=== PATIENT | female | born 1965 | race Caucasian/White ===

== ENCOUNTER 2021-03-31 09:23 | Inpatient (IN) | payer BC, OTHER ==
[2021-03-31] MEDS ORDERED: Sodium Chloride 0.9% 10 ML Syringe FLUSH PRN ×2 (09:35→10:43)
[2021-03-31] MEDS ORDERED: Albuterol 0.083% 2.5 MG/3 ML Neb Soln NEB ONE (09:50)
--- NOTE | 2021-03-31 09:57 | EDM.PDOC ---
ED HPI GENERAL MEDICAL PROBLEM - General Chief Complaint: Respiratory Problem Stated Complaint: [facility] Time Seen by Provider: 03/31/21 09:27 Source of Information: Reports: Patient, EMS History Limitations: Reports: No Limitations - History of Present Illness INITIAL COMMENTS - FREE TEXT/NARRATIVE: 56-year-old female presents the emergency department today via [facility]. According to report, the patient states she began having fatigue and shortness of breath 6 days ago. She does admit to smoking 1/2 pack to 1 pack of cigarettes daily for the past 30 years. She admits to drinking a sixpack of beer at a time however does not admit to doing this daily. 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 He states that at one point last evening the patient's O2 sats were 50% on room air at home. He did go and obtain portable oxygen from the local ambulance service and placed it on the patient via nonrebreather at 15 L. Patient was then transported here to the emergency department. Patient states she has not had her Covid or influenza vaccine. She has not seen a doctor in well over 7 years. She does not take any prescription medications however she states she has been taking Zithromax that she obtained from [employer]. 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 ED EXAM, GENERAL - Physical Exam Exam: See Below Exam Limited By: No Limitations General Appearance: Alert, WD/WN, Severe Distress Ears: Normal External Exam, Hearing Grossly Normal Nose: Normal Inspection Throat/Mouth: Normal Inspection, Normal Lips, Normal Voice, No Airway Compromise, Other (Mucous membranes are dry) Head: Atraumatic Neck: Normal Inspection, Supple Respiratory/Chest: Respiratory Distress, Decreased Breath Sounds, Crackles (Scattered crackles noted to all torres), Wheezing (Expiratory wheezes noted to all torres) Cardiovascular: Normal Peripheral Pulses, No Edema, No Murmur, Tachycardia Peripheral Pulses: 2+: Radial (L), Radial (R) GI/Abdominal: Normal Bowel Sounds, Soft, Non-Tender, No Distention (Female) Exam: Deferred Rectal (Female) Exam: Deferred Back Exam: Normal Inspection Extremities: Normal Inspection Neurological: Alert, Oriented, Normal Cognition Psychiatric: Normal Affect, Normal Mood Skin Exam: Warm, Dry, Intact, Normal Color, No Rash Lymphatic: No Adenopathy #1 Interpretation EKG Date: 03/31/21 Time: 09:37 Rhythm: NSR Rate (Beats/Min): 104 [place]: Normal P-Wave: Present QRS: Normal ST-T: Normal QT: Normal Comparison: NA - No Prior EKG EKG Interpretation Comments: Per Dr. Medel interpretation: Sinus tachycardia at 104 bpm; biatrial enlargement; borderline right axis deviation; low voltage, precordial leads; borderline T abnormalities, anterior leads Course - Vital Signs Text/Narrative:: Stated above, patient presents with flulike symptoms, hypoxemia and tachypnea. Symptoms started approximately 6 days ago and have progressively worsened. Upon exam, the patient is tachypneic and dyspneic on nonrebreather mask at 12 L. O2 saturations are 100% at this time. Patient is ill in appearance. Lung sounds reveal expiratory wheezes with crackles noted to all torres. Heart rate is regular and tachycardic. Abdomen is soft and nontender. Nursing staff has placed standing orders to obtain lab studies, chest x-ray, EKG, Covid and influenza testing. I have decreased the patient's oxygen to 10 L at this time due to her saturations being at 100%. Suspect likely does have underlying COPD due to her significant smoking history. We will have respiratory therapy give the patient an albuterol nebulizer. Last Recorded V/S: Last Vital Signs Temp 96.4 F L 03/31/21 13:52 Pulse 84 03/31/21 13:52 Resp 28 H 03/31/21 13:52 BP 117/103 H 03/31/21 13:52 Pulse Ox 97 03/31/21 13:52 - Orders/Labs/Meds Orders: Active Orders 24 hr Category Date Time Status Admission Status [Patient Status] [ADT] Routine ADT 03/31/21 12:45 Active Jamil Catheter Insertion [Insert Urinary Catheter] [OM. Care 03/31/21 12:00 Ordered PC] Q24H BLOOD CULTURE [MREF] Stat Lab 03/31/21 11:07 Received BLOOD CULTURE [MREF] Stat Lab 03/31/21 11:13 Received Sodium Chloride 0.9% [Normal Saline] 100 ml Med 03/31/21 10:45 Active IV ASDIRECTED Sodium Chloride 0.9% [Saline Flush] Med 03/31/21 09:35 Active 10 ml FLUSH ASDIRECTED PRN Sodium Chloride 0.9% [Saline Flush] Med 03/31/21 10:43 Active 10 ml FLUSH ONETIME PRN Blood Culture x2 Reflex Set [OM.PC] Stat Oth 03/31/21 10:42 Ordered Isolation [COMM] Routine Oth 03/31/21 09:35 Ordered Saline Lock Insert [OM.PC] Stat Oth 03/31/21 09:35 Ordered Medication Orders Sodium Chloride (Normal Saline) 100 mls @ 75 mls/hr IV ASDIRECTED ROSY Last Admin: 03/31/21 10:56 Dose: 75 mls/hr Documented by: ALEXA Ceftriaxone Sodium 1 gm/ (Sodium Chloride) 100 mls @ 200 mls/hr IV ONETIME ONE Stop: 03/31/21 14:44 Ceftriaxone Sodium 2 gm/ (Sodium Chloride) 100 mls @ 200 mls/hr IV Q24H ROSY Doxycycline Hyclate 100 mg/ (Sodium Chloride) 100 mls @ 100 mls/hr IV Q12HR ROSY Methylprednisolone Sodium Succinate (Methylprednisolone Sodium Succinate 125 Mg/2 Ml Sdv) 125 mg IVPUSH ONETIME ONE Stop: 03/31/21 14:14 Sodium Chloride (Sodium Chloride 0.9% 10 Ml Syringe) 10 ml FLUSH ASDIRECTED PRN PRN Reason: Keep Vein Open Last Admin: 03/31/21 10:28 Dose: 10 ml Documented by: BORDMIN Sodium Chloride (Sodium Chloride 0.9% 10 Ml Syringe) 10 ml FLUSH ONETIME PRN PRN Reason: IV FLUSH Last Admin: 03/31/21 10:56 Dose: 10 ml Documented by: ALEXA Labs: Laboratory Tests 03/31/21 03/31/21 03/31/21 Range/Units 09:30 09:30 09:30 WBC 24.72 H (3.98-10.04) K/mm3 RBC 4.80 (3.98-5.22) M/mm3 Hgb 14.4 (11.2-15.7) gm/dl Hct 44.1 (34.1-44.9) % MCV 91.9 (79.4-94.8) fl MCH 30.0 (25.6-32.2) pg MCHC 32.7 (32.2-35.5) g/dl RDW Std Deviation 44.5 (36.4-46.3) fL Plt Count 318 (182-369) K/mm3 MPV 11.2 (9.4-12.3) fl Neut % (Auto) 79.2 H (34.0-71.1) % Lymph % (Auto) 9.1 L (19.3-51.7) % Vigo % (Auto) 7.7 (4.7-12.5) % Eos % (Auto) 0 L (0.7-5.8) Baso % (Auto) 0.9 (0.1-1.2) % Neut # (Auto) 19.59 H (1.56-6.13) K/mm3 Lymph # (Auto) 2.24 (1.18-3.74) K/mm3 [place]igo # (Auto) 1.90 H (0.24-0.36) K/mm3 Eos # (Auto) 0.01 L (0.04-0.36) K/mm3 Baso # (Auto) 0.22 H (0.01-0.08) K/mm3 Manual Slide Review Abnormal smear D-Dimer, Quantitative 1.93 H (0.19-0.50) mg/L Puncture Site ABG pH (7.35-7.45) ABG pCO2 (35.0-45.0) mmHg ABG pO2 (80.0-100.0) mmHg ABG HCO3 (22.0-26.0) meq/L ABG O2 Saturation (96.0-97.0) % ABG Base Excess (-2-2.0) Jairo Test O2 Delivery Device Oxygen Flow Rate Sodium 128 L (136-145) mEq/L Potassium 4.1 (3.5-5.1) mEq/L Chloride 89 L (98-107) mEq/L Carbon Dioxide 33 H (21-32) mEq/L Anion Gap 10.1 (5-15) BUN 34 H (7-18) mg/dL Creatinine 1.2 H (0.55-1.02) mg/dL Est Cr Clr Drug Dosing 54.05 mL/min Estimated GFR (MDRD) 46 (>60) mL/min BUN/Creatinine Ratio 28.3 H (14-18) Glucose 143 H (70-99) mg/dL Lactic Acid (0.4-2.0) mmol/L Calcium 9.4 (8.5-10.1) mg/dL Ferritin (8-252) ng/ml Total Bilirubin 0.7 (0.2-1.0) mg/dL AST 970 H (15-37) U/L ALT 488 H (14-59) U/L Alkaline Phosphatase 135 H (46-116) U/L Lactate Dehydrogenase 979 H (81-234) U/L Troponin I 0.829 H* (0.00-0.056) ng/mL C-Reactive Protein 34.7 H* (<1.0) mg/dL NT-Pro-B Natriuret Pep (0-125) pg/mL Total Protein 7.9 (6.4-8.2) g/dl Albumin 2.8 L (3.4-5.0) g/dl Globulin 5.1 gm/dL Albumin/Globulin Ratio 0.6 L (1-2) Influenza Type A RNA (NEGATIVE) Influenza Type B RNA (NEGATIVE) SARS-CoV-2 RNA (ASHLEY) (NEGATIVE) 03/31/21 03/31/21 03/31/21 Range/Units 09:30 09:30 09:30 WBC (3.98-10.04) K/mm3 RBC (3.98-5.22) M/mm3 Hgb (11.2-15.7) gm/dl Hct (34.1-44.9) % MCV (79.4-94.8) fl MCH (25.6-32.2) pg MCHC (32.2-35.5) g/dl RDW Std Deviation (36.4-46.3) fL Plt Count (182-369) K/mm3 MPV (9.4-12.3) fl Neut % (Auto) (34.0-71.1) % Lymph % (Auto) (19.3-51.7) % Vigo % (Auto) (4.7-12.5) % Eos % (Auto) (0.7-5.8) Baso % (Auto) (0.1-1.2) % Neut # (Auto) (1.56-6.13) K/mm3 Lymph # (Auto) (1.18-3.74) K/mm3 [place]igo # (Auto) (0.24-0.36) K/mm3 Eos # (Auto) (0.04-0.36) K/mm3 Baso # (Auto) (0.01-0.08) K/mm3 Manual Slide Review D-Dimer, Quantitative (0.19-0.50) mg/L Puncture Site ABG pH (7.35-7.45) ABG pCO2 (35.0-45.0) mmHg ABG pO2 (80.0-100.0) mmHg ABG HCO3 (22.0-26.0) meq/L ABG O2 Saturation (96.0-97.0) % ABG Base Excess (-2-2.0) Jairo Test O2 Delivery Device Oxygen Flow Rate Sodium (136-145) mEq/L Potassium (3.5-5.1) mEq/L Chloride (98-107) mEq/L Carbon Dioxide (21-32) mEq/L Anion Gap (5-15) BUN (7-18) mg/dL Creatinine (0.55-1.02) mg/dL Est Cr Clr Drug Dosing mL/min Estimated GFR (MDRD) (>60) mL/min BUN/Creatinine Ratio (14-18) Glucose (70-99) mg/dL Lactic Acid 1.5 (0.4-2.0) mmol/L Calcium (8.5-10.1) mg/dL Ferritin 3947 H (8-252) ng/ml Total Bilirubin (0.2-1.0) mg/dL AST (15-37) U/L ALT (14-59) U/L Alkaline Phosphatase (46-116) U/L Lactate Dehydrogenase (81-234) U/L Troponin I (0.00-0.056) ng/mL C-Reactive Protein (<1.0) mg/dL NT-Pro-B Natriuret Pep 34971 H (0-125) pg/mL Total Protein (6.4-8.2) g/dl Albumin (3.4-5.0) g/dl Globulin gm/dL Albumin/Globulin Ratio (1-2) Influenza Type A RNA (NEGATIVE) Influenza Type B RNA (NEGATIVE) SARS-CoV-2 RNA (ASHLEY) (NEGATIVE) 03/31/21 03/31/21 Range/Units 09:35 10:45 WBC (3.98-10.04) K/mm3 RBC (3.98-5.22) M/mm3 Hgb (11.2-15.7) gm/dl Hct (34.1-44.9) % MCV (79.4-94.8) fl MCH (25.6-32.2) pg MCHC (32.2-35.5) g/dl RDW Std Deviation (36.4-46.3) fL Plt Count (182-369) K/mm3 MPV (9.4-12.3) fl Neut % (Auto) (34.0-71.1) % Lymph % (Auto) (19.3-51.7) % [place] % (Auto) (4.7-12.5) % Eos % (Auto) (0.7-5.8) Baso % (Auto) (0.1-1.2) % Neut # (Auto) (1.56-6.13) K/mm3 Lymph # (Auto) (1.18-3.74) K/mm3 [place] # (Auto) (0.24-0.36) K/mm3 Eos # (Auto) (0.04-0.36) K/mm3 Baso # (Auto) (0.01-0.08) K/mm3 Manual Slide Review D-Dimer, Quantitative (0.19-0.50) mg/L Puncture Site Lt radial ABG pH 7.22 L (7.35-7.45) ABG pCO2 81.5 H* (35.0-45.0) mmHg ABG pO2 89.0 (80.0-100.0) mmHg ABG HCO3 32.4 H (22.0-26.0) meq/L ABG O2 Saturation 94.1 L (96.0-97.0) % ABG Base Excess 1.8 (-2-2.0) Jairo Test Positive O2 Delivery Device Nasal cannula Oxygen Flow Rate 6.0 Sodium (136-145) mEq/L Potassium (3.5-5.1) mEq/L Chloride (98-107) mEq/L Carbon Dioxide (21-32) mEq/L Anion Gap (5-15) BUN (7-18) mg/dL Creatinine (0.55-1.02) mg/dL Est Cr Clr Drug Dosing mL/min Estimated GFR (MDRD) (>60) mL/min BUN/Creatinine Ratio (14-18) Glucose (70-99) mg/dL Lactic Acid (0.4-2.0) mmol/L Calcium (8.5-10.1) mg/dL Ferritin (8-252) ng/ml Total Bilirubin (0.2-1.0) mg/dL AST (15-37) U/L ALT (14-59) U/L Alkaline Phosphatase (46-116) U/L Lactate Dehydrogenase (81-234) U/L Troponin I (0.00-0.056) ng/mL C-Reactive Protein (<1.0) mg/dL NT-Pro-B Natriuret Pep (0-125) pg/mL Total Protein (6.4-8.2) g/dl Albumin (3.4-5.0) g/dl Globulin gm/dL Albumin/Globulin Ratio (1-2) Influenza Type A RNA Negative (NEGATIVE) Influenza Type B RNA Negative (NEGATIVE) SARS-CoV-2 RNA (ASHLEY) Negative (NEGATIVE) Meds: Medications Generic Name Dose Route Start Last Admin Trade Name Freq PRN Reason Stop Dose Admin Sodium Chloride 100 mls @ 75 mls/hr 03/31/21 10:45 03/31/21 10:56 Normal Saline IV 75 mls/hr ASDIRECTED ROSY Administration Ceftriaxone Sodium 1 gm/ 100 mls @ 200 mls/hr 03/31/21 14:15 Sodium Chloride IV 03/31/21 14:44 ONETIME ONE Ceftriaxone Sodium 2 gm/ 100 mls @ 200 mls/hr 04/01/21 14:15 Sodium Chloride IV Q24H ROSY Doxycycline Hyclate 100 mg/ 100 mls @ 100 mls/hr 03/31/21 21:00 Sodium Chloride IV Q12HR ROSY Methylprednisolone Sodium Succinate 125 mg 03/31/21 14:13 Methylprednisolone Sodium Succinate 125 Mg/2 Ml Sdv IVPUSH 03/31/21 14:14 ONETIME ONE Sodium Chloride 10 ml 03/31/21 09:35 03/31/21 10:28 Sodium Chloride 0.9% 10 Ml Syringe FLUSH 10 ml ASDIRECTED PRN Administration Keep Vein Open Sodium Chloride 10 ml 03/31/21 10:43 03/31/21 10:56 Sodium Chloride 0.9% 10 Ml Syringe FLUSH 10 ml ONETIME PRN Administration IV FLUSH Discontinued Medications Generic Name Dose Route Start Last Admin Trade Name Freq PRN Reason Stop Dose Admin Albuterol 2.5 mg 03/31/21 09:50 03/31/21 10:00 Albuterol 0.083% 2.5 Mg/3 Ml Neb Soln NEB 03/31/21 09:51 2.5 mg ONETIME ONE Administration Aspirin 324 mg 03/31/21 10:19 03/31/21 10:27 Aspirin 81 Mg Tab.Chew PO 03/31/21 10:20 324 mg ONETIME ONE Administration Furosemide 40 mg 03/31/21 11:01 03/31/21 11:11 Furosemide 40 Mg/4 Ml Vial IVPUSH 03/31/21 11:02 40 mg NOW ONE Administration Furosemide 40 mg 03/31/21 12:40 03/31/21 12:48 Furosemide 40 Mg/4 Ml Vial IVPUSH 03/31/21 12:41 40 mg NOW ONE Administration Ceftriaxone Sodium 1 gm/ 100 mls @ 200 mls/hr 03/31/21 10:52 03/31/21 11:14 Sodium Chloride IV 03/31/21 11:21 200 mls/hr ONETIME ONE Administration Sodium Chloride Confirm 03/31/21 10:58 03/31/21 11:12 Normal Saline Administered 03/31/21 10:59 Not Given Dose 1,000 mls @ as directed .ROUTE .STK-MED ONE Iopamidol 100 ml 03/31/21 10:43 03/31/21 10:56 Iopamidol 755 Mg/Ml 100 Ml Bottle IVPUSH 03/31/21 10:44 100 ml ONETIME ONE Administration - Radiology Interpretation Free Text/Narrative:: Portable view of the chest was reviewed. Questionable areas of infiltrate noted to the right lower lobe as well as the right middle lobe. - Re-Assessments/Exams Free Text/Narrative Re-Assessment/Exam: 03/31/21 10:46 Hematology reveals a WBC of 24.72, hemoglobin 14.4, hematocrit 44.1, platelet count 318, neutrophil percentage 79.2, lymphocyte percentage 9.1 Coagulation reveals a D-dimer of 1.93 Chemistry reveals a sodium of 128, potassium 4.1, chloride 89, carbon dioxide 33, anion gap 10.1, BUN 34, creatinine 1.2, GFR 46, glucose 143, total bilirubin 0.7, AST 970, ALT 48, alk phos 135, LDH 979, troponin 0 0.829, C-reactive protein 34.7 Patient is negative for influenza A, B and Covid I have ordered a CTA of the lungs as well as blood cultures x2 and a lactic acid level 03/31/21 11:02 Patient's proBNP is 14,948. I have ordered for the patient to receive 40 mg of IV Lasix. 03/31/21 11:13 Patient's ABGs reveal a pH of 7.22, PCO2 of 81.5, PO2 89.0, bicarb 32.4, O2 saturation 94.1% on 6 L per nasal cannula I have ordered for the patient be placed on BiPAP. 03/31/21 11:48 I have ordered for nursing staff to place a Jamil catheter for strict I&O. 03/31/21 11:[address] angio chest diffuse airway wall thickening. In the peripheral third of the lung as there is centrilobular nodularity/tree-in-bud opacity in a few small foci of subsegmental opacity anterior-inferior right upper lobe lateral segment of right middle lobe and in the periphery of both upper lobes consistent with foci of mixed atelectasis/inflammation. No pleural effusion is present. Cardiac chambers are normal in size. Physiologic pericardial fluid. Normal caliber thoracic aorta with conventional arch anatomy. Imaged thyroid gland is normal. Hilar and mediastinal lymph nodes are normal by the size criteria. Esophagus is decompressed. No coronary artery calcification. No actionable findings in the imaged upper abdomen. Musculoskeletal is normal. Impression: 1. No acute pulmonary embolism. 2. Diffuse area thickening with central lobular nodularity/tree-in-bud opacity and a few small peripheral foci of airspace opacity. Overall the pattern is most consistent with a bronchitis/bronchiolitis and most likely infectious such as influenza. 03/31/21 12:15 I do feel this patient needs to be hospitalized. Due to the severity of your illness I have phoned [facility] in [place] and [facility] in [place]. Both hospitals state they do not have any critical care or ICU beds available at this time. 03/31/21 12:20 I then phoned [facility] in [place] and spoke with the circle shear operator on-call, Dr. Whelan, and he states that the patient's heart failure could possibly be due to the pneumonia. He suspects that the troponin elevation is likely caused by the heart failure and pneumonia. He recommends that she be given 40 mg of IV Lasix in addition to what I have already given her. States that the patient should have blood cultures completed and then be given broad- spectrum antibiotics which I have already done. Also states that the patient will likely need an echocardiogram. I spoke with our hospitalist, Dr. Owen, and discussed the case with him and the recommendations per the circle shear operator and he has agreed to accept the patient into his services. The patient will be transferred to ICU. I have ordered for the patient to receive another 40 mg of IV Lasix. Discussed the case with the patient's who is at the bedside and he does verbalize understanding. Radiologist impression portable view of the chest: Cardiomegaly. Normal mediastinal contours. Pulmonary vascular congestion. There is a faint peripheral opacities in both lower lungs that either represents a small amount of interstitial edema or multifocal pneumonitis if there is a presenting symptom of infection. There is no pleural effusion or pneumothorax. 03/31/21 14:18 Departure - Departure Time of Disposition: 13:20 Disposition: Admitted As Inpatient 65 Condition: Fair Clinical Impression: Elevated liver enzymes, Elevated troponin Congestive heart failure Qualifiers: Heart failure type: unspecified Heart failure chronicity: unspecified Qualified Code(s): I50.9 - Heart failure, unspecified Pneumonia Qualifiers: Pneumonia type: due to unspecified organism Laterality: bilateral Lung location: lower lobe of lung Qualified Code(s): J18.9 - Pneumonia, unspecified organism - Discharge Information Sepsis Event Note (ED) - Focused Exam Vital Signs: Vital Signs Temp Temp Pulse Resp BP Pulse Ox Pulse Ox 03/31/21 13:00 88 36 H 128/80 98 03/31/21 12:00 89 36 H 128/87 98 03/31/21 11:19 95 44 H 130/84 95 03/31/21 10:41 90 L 03/31/21 10:30 98.5 F 94 40 H 109/73 86 L 03/31/21 10:15 103 H 36 H 137/88 92 L 03/31/21 10:08 90 L 03/31/21 10:00 114 H 42 H 141/84 H 100 03/31/21 09:51 93 L 03/31/21 09:45 104 H 42 H 134/86 98 03/31/21 09:26 96.1 F L 28 H 126/87 98 - My Orders Last 24 Hours: My Active Orders 03/31/21 09:35 Sodium Chloride 0.9% [Saline Flush] 10 ml FLUSH ASDIRECTED PRN Isolation [COMM] Routine Saline Lock Insert [OM.PC] Stat 03/31/21 10:42 Blood Culture x2 Reflex Set [OM.PC] Stat 03/31/21 10:43 Sodium Chloride 0.9% [Saline Flush] 10 ml FLUSH ONETIME PRN 03/31/21 10:45 Sodium Chloride 0.9% [Normal Saline] 100 ml IV ASDIRECTED 03/31/21 11:07 BLOOD CULTURE [MREF] Stat 03/31/21 11:13 BLOOD CULTURE [MREF] Stat 03/31/21 12:00 Jamil Catheter Insertion [Insert Urinary Catheter] [OM.PC] Q24H 03/31/21 12:45 Admission Status [Patient Status] [ADT] Routine - Assessment/Plan Last 24 Hours: My Active Orders 03/31/21 09:35 Sodium Chloride 0.9% [Saline Flush] 10 ml FLUSH ASDIRECTED PRN Isolation [COMM] Routine Saline Lock Insert [OM.PC] Stat 03/31/21 10:42 Blood Culture x2 Reflex Set [OM.PC] Stat 03/31/21 10:43 Sodium Chloride 0.9% [Saline Flush] 10 ml FLUSH ONETIME PRN 03/31/21 10:45 Sodium Chloride 0.9% [Normal Saline] 100 ml IV ASDIRECTED 03/31/21 11:07 BLOOD CULTURE [MREF] Stat 03/31/21 11:13 BLOOD CULTURE [MREF] Stat 03/31/21 12:00 Jamil Catheter Insertion [Insert Urinary Catheter] [OM.PC] Q24H 03/31/21 12:45 Admission Status [Patient Status] [ADT] Routine
[2021-03-31] MEDS ORDERED: Aspirin 81 MG Tab.Chew PO ONE (10:19)
[2021-03-31 10:28] LABS: CORONAVIRUS COVID-19 NAA NEGATIVE (NEGATIVE)
[2021-03-31] MEDS ORDERED: Iopamidol 755 Mg/ML 100 ML Bottle IVPUSH ONE (10:43)
[2021-03-31] MEDS ORDERED: Sodium Chloride 0.9% 100 ML IV SCH (10:45)
[2021-03-31] MEDS ORDERED: cefTRIAXone 1 GM in Sodium Chloride 0.9% 100 ML IV ONE ×2 (10:52→14:30)
[2021-03-31] MEDS ORDERED: Sodium Chloride 0.9% 0 ML ONE (10:58)
[2021-03-31] MEDS ORDERED: Furosemide 40 MG/4 ML VIAL IVPUSH ONE ×2 (11:01→12:40)
--- NOTE | 2021-03-31 13:48 | CR ---
EXAM: XR CHEST 1 VIEW LOCATION: [facility] DATE/TIME: 03/31/2021 9:49 AM INDICATION: Severe respiratory distress COMPARISON: None. IMPRESSION: Cardiomegaly. Normal mediastinal contours. Pulmonary vascular congestion. There is faint peripheral opacities in both lower lungs that either represents a small amount of interstitial edema or a multifocal pneumonitis if there is presenting symptoms of an infection. There is no pleural effusion or pneumothorax. SIGNED BY: Andrés Sauceda MD 03/31/2021 11:23 AM [facility]US[facility]
--- NOTE | 2021-03-31 13:52 | CT ---
EXAM: CT ANGIO PULMONARY LOCATION: [facility] DATE/TIME: 03/31/2021 10:48 AM INDICATION: Hypoxia, elevated d dimer COMPARISON: Portable chest radiography 03/31/2021 TECHNIQUE: CT chest pulmonary angiogram during arterial phase injection of IV contrast. Multiplanar reformats and MIP reconstructions were performed. Dose reduction techniques were used. CONTRAST: isovue 370, 90 mL FINDINGS: ANGIOGRAM CHEST: Pulmonary arteries are normal caliber and negative for pulmonary emboli. Thoracic aorta is negative for dissection. LUNGS AND PLEURA: Diffuse airway wall thickening. In the peripheral third of the lung as there is centrilobular nodularity/tree-in-bud opacity and a few small foci of subsegmental opacity anterior inferior right upper lobe, lateral segment right middle lobe and in the periphery of both upper lobes consistent with foci of mixed atelectasis/inflammation. No pleural effusion is present. MEDIASTINUM: Cardiac chambers are normal in size. Physiologic pericardial fluid. Normal caliber thoracic aorta with conventional arch anatomy. Imaged thyroid gland is normal. Hilar and mediastinal lymph nodes are normal by size criteria. Esophagus is decompressed. CORONARY ARTERY CALCIFICATION: None. UPPER ABDOMEN: No actionable findings in the imaged upper abdomen. MUSCULOSKELETAL: Normal. IMPRESSION: 1. No acute pulmonary embolism. 2. Diffuse airway wall thickening with centrilobular nodularity/tree-in-bud opacity and a few small peripheral foci of airspace opacity. Overall the pattern is most consistent with a bronchitis/bronchiolitis and most likely infectious such as influenza. SIGNED BY: Nadir Finnegan MD 03/31/2021 12:33 PM [facility]
[2021-03-31] MEDS ORDERED: Acetaminophen 325 MG Tab PO PRN (14:19)
[2021-03-31] MEDS ORDERED: Albuterol 0.083% 2.5 MG/3 ML Neb Soln NEB PRN (14:19)
[2021-03-31] MEDS ORDERED: Ondansetron 4 MG/2 ML SDV IV PRN (14:19)
--- NOTE | 2021-03-31 14:23 | PCM.HP.2 ---
H&P History of Present Illness - General Date of Service: 03/31/21 Admit Problem/Dx: Admission Diagnosis/Problem Admission Diagnosis/Problem Pneumonia - History of Present Illness Initial Comments - Free Text/Narative: 56-year-old female who presented to the emergency department via [facility] with no known medical history in respiratory distress. 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 He obtained a portable oxygen from the local ambulance service and placed her on a 15 L nonrebreather. She was transferred to the emergency department this morning found to be tachypneic, on a nonrebreather at 12 L, and oxygen saturations of 100%. In the emergency department they decreased her FiO2 to 10 L. Blood gas obtained in pH was 7.22 with a PCO2 of 82. Patient was placed on BiPAP with pressures of 10/5. Speaking to the it appears she has been under the weather for approximately 8 days. She had a flulike illness with fevers and worsening cough and shortness of breath. She generally smokes a pack or more cigarettes per day since she was in her teens. She drinks 6 pack plus of beer 3-4 times per week. Last alcohol was 8 days ago. Patient generally does not take medications and has since been seen by a physician in over 7 years. He did state that she has had some difficulty breathing over the last several months and was taking an herbal supplement to help her breathing and allergies when she was gardening. She did respond well enough to me to tell me that she had some benefit recently when she tried the same herbal supplement. Apparently she was taking Zithromax this was obtained from [place]. She has not been diagnosed with heart failure, COPD, hypertension, diabetes, although it is likely she does have some degree of COPD and heart disease. Family history is significant for a mother with coronary artery disease with 1 stent and kidney disease of unknown cause. 1 brother with alcohol abuse disorder. She is estranged from her father, therefore unknown health. In the emergency department White count came back at 24.72 with a D-dimer of 1.93. CRP was 34.7 with a troponin of 0.829 and a proBNP of 14,948. Ferritin was elevated at 3947 and lactate dehydrogenase of 979. Fortunately, lactic acid was 1.5. She was given 40 mg of Lasix x2 in the emergency department. Emergency room provider did contact cardiology at [facility]. Unfortunately there are no beds in [facility] for ICU. Per ED provider they recommended that we continue with our current therapy of BiPAP, Lasix, and antibiotics. They felt that CHF is likely secondary to pneumonia. - Related Data Allergies/Adverse Reactions: Allergies Allergy/AdvReac Type Severity Reaction Status Date / Time No Known Allergies Allergy Verified 03/31/21 09:32 Home Medications: Home Meds Azithromycin 03/31/21 [History] Past Medical History Respiratory History: Reports: None Social & Family History - Tobacco Use Tobacco Use Status *Q: Current Every Day Tobacco User Years of Tobacco use: 5 Packs/Tins Daily: 1 - Caffeine Use Caffeine Use: Reports: None - Alcohol Use Days Per Week of Alcohol Use: 4 Number of Drinks Per Day: 3 Total Drinks Per Week: 12 Date of Last Drink: 03/27/21 Time of Last Drink: 20:00 - Recreational Drug Use Recreational Drug Use: No H&P Review of Systems - Review of Systems: Review Of Systems: Unable To Obtain Reason Not Obtained: Obtunded secondary to hypercapnia Exam - Exam Exam: See Below - Vital Signs Vital Signs: Last Vital Signs Temp 96.4 F L 03/31/21 13:52 Pulse 84 03/31/21 13:52 Resp 28 H 03/31/21 13:52 BP 117/103 H 03/31/21 13:52 Pulse Ox 97 03/31/21 13:52 Weight: 169 lb 4.8 oz - Exam Quality Assessment: Supplemental Oxygen (BiPAP), Urinary Catheter General: Obtunded HEENT: Conjunctiva Clear, Hearing Intact, Mucosa Moist & [place] Neck: Supple, Trachea Midline, 2 Lungs: Crackles (Scattered), Wheezing (Throughout). No: Normal Respiratory Effort (Increased respiratory rate and effort) Cardiovascular: Regular Rate, Regular Rhythm, Normal S1, Normal S2 GI/Abdominal Exam: Normal Bowel Sounds, Soft, Non-Tender, No Organomegaly, No Distention, No Abnormal Bruit, No Mass Extremities: Normal Inspection, Normal Range of Motion, Non-Tender, No Pedal Ed jayshree, Normal Capillary Refill Peripheral Pulses: 1+: Popliteal (R), Posterior Tibial (L), Posterior Tibial (R), Dorsalis Pedis (L) Skin: Warm, Dry, Intact Neuro Extensive - Mental Status: Slow Response to Commands - Patient Data Lab Results Last 24 hrs: Laboratory Results - last 24 hr 03/31/21 03/31/21 03/31/21 Range/Units 09:30 09:30 09:30 WBC 24.72 H (3.98-10.04) K/mm3 RBC 4.80 (3.98-5.22) M/mm3 Hgb 14.4 (11.2-15.7) gm/dl Hct 44.1 (34.1-44.9) % MCV 91.9 (79.4-94.8) fl MCH 30.0 (25.6-32.2) pg MCHC 32.7 (32.2-35.5) g/dl RDW Std Deviation 44.5 (36.4-46.3) fL Plt Count 318 (182-369) K/mm3 MPV 11.2 (9.4-12.3) fl Neut % (Auto) 79.2 H (34.0-71.1) % Lymph % (Auto) 9.1 L (19.3-51.7) % [place] % (Auto) 7.7 (4.7-12.5) % Eos % (Auto) 0 L (0.7-5.8) Baso % (Auto) 0.9 (0.1-1.2) % Neut # (Auto) 19.59 H (1.56-6.13) K/mm3 Lymph # (Auto) 2.24 (1.18-3.74) K/mm3 [place] # (Auto) 1.90 H (0.24-0.36) K/mm3 Eos # (Auto) 0.01 L (0.04-0.36) K/mm3 Baso # (Auto) 0.22 H (0.01-0.08) K/mm3 Manual Slide Review Abnormal smear D-Dimer, Quantitative 1.93 H (0.19-0.50) mg/L Puncture Site ABG pH (7.35-7.45) ABG pCO2 (35.0-45.0) mmHg ABG pO2 (80.0-100.0) mmHg ABG HCO3 (22.0-26.0) meq/L ABG O2 Saturation (96.0-97.0) % ABG Base Excess (-2-2.0) [place]airo Test O2 Delivery Device Oxygen Flow Rate Sodium 128 L (136-145) mEq/L Potassium 4.1 (3.5-5.1) mEq/L Chloride 89 L (98-107) mEq/L Carbon Dioxide 33 H (21-32) mEq/L Anion Gap 10.1 (5-15) BUN 34 H (7-18) mg/dL Creatinine 1.2 H (0.55-1.02) mg/dL Est Cr Clr Drug Dosing 54.05 mL/min Estimated GFR (MDRD) 46 (>60) mL/min BUN/Creatinine Ratio 28.3 H (14-18) Glucose 143 H (70-99) mg/dL Lactic Acid (0.4-2.0) mmol/L Calcium 9.4 (8.5-10.1) mg/dL Ferritin (8-252) ng/ml Total Bilirubin 0.7 (0.2-1.0) mg/dL AST 970 H (15-37) U/L ALT 488 H (14-59) U/L Alkaline Phosphatase 135 H (46-116) U/L Lactate Dehydrogenase 979 H (81-234) U/L Troponin I 0.829 H* (0.00-0.056) ng/mL C-Reactive Protein 34.7 H* (<1.0) mg/dL NT-Pro-B Natriuret Pep (0-125) pg/mL Total Protein 7.9 (6.4-8.2) g/dl Albumin 2.8 L (3.4-5.0) g/dl Globulin 5.1 gm/dL Albumin/Globulin Ratio 0.6 L (1-2) Influenza Type A RNA (NEGATIVE) Influenza Type B RNA (NEGATIVE) SARS-CoV-2 RNA (ASHLEY) (NEGATIVE) 03/31/21 03/31/21 03/31/21 Range/Units 09:30 09:30 09:30 WBC (3.98-10.04) K/mm3 RBC (3.98-5.22) M/mm3 Hgb (11.2-15.7) gm/dl Hct (34.1-44.9) % MCV (79.4-94.8) fl MCH (25.6-32.2) pg MCHC (32.2-35.5) g/dl RDW Std Deviation (36.4-46.3) fL Plt Count (182-369) K/mm3 MPV (9.4-12.3) fl Neut % (Auto) (34.0-71.1) % Lymph % (Auto) (19.3-51.7) % [place] % (Auto) (4.7-12.5) % Eos % (Auto) (0.7-5.8) Baso % (Auto) (0.1-1.2) % Neut # (Auto) (1.56-6.13) K/mm3 Lymph # (Auto) (1.18-3.74) K/mm3 [place] # (Auto) (0.24-0.36) K/mm3 Eos # (Auto) (0.04-0.36) K/mm3 Baso # (Auto) (0.01-0.08) K/mm3 Manual Slide Review D-Dimer, Quantitative (0.19-0.50) mg/L Puncture Site ABG pH (7.35-7.45) ABG pCO2 (35.0-45.0) mmHg ABG pO2 (80.0-100.0) mmHg ABG HCO3 (22.0-26.0) meq/L ABG O2 Saturation (96.0-97.0) % ABG Base Excess (-2-2.0) Jairo Test O2 Delivery Device Oxygen Flow Rate Sodium (136-145) mEq/L Potassium (3.5-5.1) mEq/L Chloride (98-107) mEq/L Carbon Dioxide (21-32) mEq/L Anion Gap (5-15) BUN (7-18) mg/dL Creatinine (0.55-1.02) mg/dL Est Cr Clr Drug Dosing mL/min Estimated GFR (MDRD) (>60) mL/min BUN/Creatinine Ratio (14-18) Glucose (70-99) mg/dL Lactic Acid 1.5 (0.4-2.0) mmol/L Calcium (8.5-10.1) mg/dL Ferritin 3947 H (8-252) ng/ml Total Bilirubin (0.2-1.0) mg/dL AST (15-37) U/L ALT (14-59) U/L Alkaline Phosphatase (46-116) U/L Lactate Dehydrogenase (81-234) U/L Troponin I (0.00-0.056) ng/mL C-Reactive Protein (<1.0) mg/dL NT-Pro-B Natriuret Pep 17021 H (0-125) pg/mL Total Protein (6.4-8.2) g/dl Albumin (3.4-5.0) g/dl Globulin gm/dL Albumin/Globulin Ratio (1-2) Influenza Type A RNA (NEGATIVE) Influenza Type B RNA (NEGATIVE) SARS-CoV-2 RNA (ASHLEY) (NEGATIVE) 03/31/21 03/31/21 Range/Units 09:35 10:45 WBC (3.98-10.04) K/mm3 RBC (3.98-5.22) M/mm3 Hgb (11.2-15.7) gm/dl Hct (34.1-44.9) % MCV (79.4-94.8) fl MCH (25.6-32.2) pg MCHC (32.2-35.5) g/dl RDW Std Deviation (36.4-46.3) fL Plt Count (182-369) K/mm3 MPV (9.4-12.3) fl Neut % (Auto) (34.0-71.1) % Lymph % (Auto) (19.3-51.7) % [place] % (Auto) (4.7-12.5) % Eos % (Auto) (0.7-5.8) Baso % (Auto) (0.1-1.2) % Neut # (Auto) (1.56-6.13) K/mm3 Lymph # (Auto) (1.18-3.74) K/mm3 [place] # (Auto) (0.24-0.36) K/mm3 Eos # (Auto) (0.04-0.36) K/mm3 Baso # (Auto) (0.01-0.08) K/mm3 Manual Slide Review D-Dimer, Quantitative (0.19-0.50) mg/L Puncture Site Lt radial ABG pH 7.22 L (7.35-7.45) ABG pCO2 81.5 H* (35.0-45.0) mmHg ABG pO2 89.0 (80.0-100.0) mmHg ABG HCO3 32.4 H (22.0-26.0) meq/L ABG O2 Saturation 94.1 L (96.0-97.0) % ABG Base Excess 1.8 (-2-2.0) Jairo Test Positive O2 Delivery Device Nasal cannula Oxygen Flow Rate 6.0 Sodium (136-145) mEq/L Potassium (3.5-5.1) mEq/L Chloride (98-107) mEq/L Carbon Dioxide (21-32) mEq/L Anion Gap (5-15) BUN (7-18) mg/dL Creatinine (0.55-1.02) mg/dL Est Cr Clr Drug Dosing mL/min Estimated GFR (MDRD) (>60) mL/min BUN/Creatinine Ratio (14-18) Glucose (70-99) mg/dL Lactic Acid (0.4-2.0) mmol/L Calcium (8.5-10.1) mg/dL Ferritin (8-252) ng/ml Total Bilirubin (0.2-1.0) mg/dL AST (15-37) U/L ALT (14-59) U/L Alkaline Phosphatase (46-116) U/L Lactate Dehydrogenase (81-234) U/L Troponin I (0.00-0.056) ng/mL C-Reactive Protein (<1.0) mg/dL NT-Pro-B Natriuret Pep (0-125) pg/mL Total Protein (6.4-8.2) g/dl Albumin (3.4-5.0) g/dl Globulin gm/dL Albumin/Globulin Ratio (1-2) Influenza Type A RNA Negative (NEGATIVE) Influenza Type B RNA Negative (NEGATIVE) SARS-CoV-2 RNA (ASHLEY) Negative (NEGATIVE) Result Diagrams: 03/31/21 09:30 03/31/21 18:08 Imaging Impressions Last 24 hrs: Chest x-ray showed cardiomegaly with pulmonary vascular congestion. Faint peripheral opacities in both lower lungs that either represent a small amount of interstitial edema or a multifocal pneumonitis. CTA of the chest showed: 1. No acute pulmonary embolism. 2. Diffuse airway wall thickening with centrilobular nodularity/tree in bud op acity and a few small peripheral foci of airspace opacity. Overall pattern is most consistent with a bronchitis/bronchiolitis and most likely infectious such as influenza. #1 Interpretation EKG Date: 03/31/21 Time: 09:37 Rhythm: NSR Rate (Beats/Min): 104 [place]: Normal P-Wave: Present QRS: Normal ST-T: Normal QT: Normal Comparison: NA - No Prior EKG EKG Interpretation Comments: Biatrial enlargement. Low voltage precordial leads. Borderline T wave normal abnormalities in the anterior leads. Sepsis Event Note - Focused Exam Vital Signs: Vital Signs Temp Temp Pulse Pulse Resp BP Pulse Ox 03/31/21 13:52 96.4 F L 84 28 H 117/103 H 97 03/31/21 13:50 03/31/21 13:00 88 36 H 128/80 98 03/31/21 12:00 89 36 H 128/87 98 03/31/21 11:19 95 44 H 130/84 95 03/31/21 10:41 90 L 03/31/21 10:30 98.5 F 94 40 H 109/73 86 L 03/31/21 10:15 103 H 36 H 137/88 92 L 03/31/21 10:08 03/31/21 10:00 114 H 42 H 141/84 H 100 03/31/21 09:51 03/31/21 09:45 104 H 42 H 134/86 98 03/31/21 09:26 96.1 F L 28 H 126/87 98 Pulse Ox Pulse Ox 03/31/21 13:52 03/31/21 13:50 92 L 03/31/21 13:00 03/31/21 12:00 03/31/21 11:19 03/31/21 10:41 03/31/21 10:30 03/31/21 10:15 03/31/21 10:08 90 L 03/31/21 10:00 03/31/21 09:51 93 L 03/31/21 09:45 03/31/21 09:26 - Problem List (1) Respiratory failure with hypoxia and hypercapnia SNOMED Code(s): 23851239 ICD Code: J96.91 - RESPIRATORY FAILURE, UNSPECIFIED WITH HYPOXIA; J96.92 - RESPIRATORY FAILURE, UNSPECIFIED WITH HYPERCAPNIA Status: Acute Current Visit: Yes (2) Reactive airway disease SNOMED Code(s): 830098366847 ICD Code: J45.909 - UNSPECIFIED ASTHMA, UNCOMPLICATED Status: Acute Current Visit: Yes (3) Congestive heart failure SNOMED Code(s): 21072405 ICD Code: I50.9 - HEART FAILURE, UNSPECIFIED Status: Acute Current Visit: Yes Qualifiers: Heart failure type: unspecified Heart failure chronicity: unspecified Qualified Code(s): I50.9 - Heart failure, unspecified (4) Elevated troponin SNOMED Code(s): 231875755, 791054074, 797122878 ICD Code: R77.8 - OTHER SPECIFIED ABNORMALITIES OF PLASMA PROTEINS Status: Acute Current Visit: Yes Problem List Initiated/Reviewed/Updated: Yes Orders Last 24hrs: Active Orders 24 hr Category Date Time Status Admission Status [Patient Status] [ADT] Routine ADT 03/31/21 12:45 Active Jamil Catheter Insertion [Insert Urinary Catheter] [OM. Care 03/31/21 12:00 Ordered PC] Q24H Oxygen Therapy [RC] PRN Care 03/31/21 14:19 Ordered RT Aerosol Therapy [RC] ASDIRECTED Care 03/31/21 14:21 Ordered Up With Assistance [RC] ASDIRECTED Care 03/31/21 14:19 Ordered VTE/DVT Education [RC] PER UNIT ROUTINE Care 03/31/21 14:19 Ordered Vital Signs [RC] Q4H Care 03/31/21 14:19 Ordered Respiratory Care Assess and Treatment [CONS] Routine Cons 03/31/21 14:19 Ordered Regular Diet [DIET] Diet 03/31/21 Dinner Ordered ABG [BLOOD GAS ARTERIAL] [BG] Urgent Lab 03/31/21 14:13 Ordered BLOOD CULTURE [MREF] Stat Lab 03/31/21 11:07 Received BLOOD CULTURE [MREF] Stat Lab 03/31/21 11:13 Received C-REACTIVE PROTEIN [CHEM] AM Lab 04/01/21 05:11 Ordered C-REACTIVE PROTEIN [CHEM] AM Lab 04/02/21 05:11 Ordered C-REACTIVE PROTEIN [CHEM] AM Lab 04/03/21 05:11 Ordered C-REACTIVE PROTEIN [CHEM] AM Lab 04/04/21 05:11 Ordered CBC WITH AUTO DIFF [HEME] AM Lab 04/01/21 05:11 Ordered CBC WITH AUTO DIFF [HEME] AM Lab 04/02/21 05:11 Ordered CBC WITH AUTO DIFF [HEME] AM Lab 04/03/21 05:11 Ordered CBC WITH AUTO DIFF [HEME] AM Lab 04/04/21 05:11 Ordered CMP [COMPREHENSIVE METABOLIC PN,CMP] [CHEM] AM Lab 04/01/21 05:11 Ordered CMP [COMPREHENSIVE METABOLIC PN,CMP] [CHEM] AM Lab 04/02/21 05:11 Ordered CMP [COMPREHENSIVE METABOLIC PN,CMP] [CHEM] AM Lab 04/03/21 05:11 Ordered CMP [COMPREHENSIVE METABOLIC PN,CMP] [CHEM] AM Lab 04/04/21 05:11 Ordered MAGNESIUM [CHEM] AM Lab 04/01/21 05:11 Ordered MAGNESIUM [CHEM] AM Lab 04/02/21 05:11 Ordered MAGNESIUM [CHEM] AM Lab 04/03/21 05:11 Ordered MAGNESIUM [CHEM] AM Lab 04/04/21 05:11 Ordered PHOSPHORUS [CHEM] AM Lab 04/01/21 05:11 Ordered PROCALCITONIN [REF] Routine Lab 03/31/21 14:17 Ordered Acetaminophen [TylenoL] Med 03/31/21 14:19 Ordered 650 mg PO Q4H PRN Albuterol [Proventil Neb Soln] Med 03/31/21 14:19 Ordered 2.5 mg NEB Q2H PRN Albuterol/Ipratropium [DuoNeb 3.0-0.5 MG/3 ML] Med 03/31/21 14:19 Ordered 3 ml NEB Q4H PRN Doxycycline [Vibramycin] 100 mg Med 03/31/21 21:00 Ordered Sodium Chloride 0.9% [Normal Saline] 100 ml IV Q12HR Enoxaparin [Lovenox] Med 04/01/21 09:00 Ordered 40 mg SUBCUT DAILY Furosemide [Lasix] 100 mg Med 03/31/21 14:30 Ordered Sodium Chloride 0.9% [Normal Saline] 90 ml IV TITRATE Ondansetron [Zofran] Med 03/31/21 14:19 Ordered 4 mg IV Q6H PRN Sodium Chloride 0.9% [Normal Saline] 100 ml Med 03/31/21 10:45 Active IV ASDIRECTED Sodium Chloride 0.9% [Saline Flush] Med 03/31/21 09:35 Active 10 ml FLUSH ASDIRECTED PRN Sodium Chloride 0.9% [Saline Flush] Med 03/31/21 10:43 Active 10 ml FLUSH ONETIME PRN cefTRIAXone [Rocephin] 1 gm Med 03/31/21 14:15 Ordered Sodium Chloride 0.9% [Normal Saline AdvBag] 100 ml IV ONETIME cefTRIAXone [Rocephin] 2 gm Med 04/01/21 14:15 Ordered Sodium Chloride 0.9% [Normal Saline AdvBag] 100 ml IV Q24H methylPREDNISolone Sod Succ [Solu-MEDROL] Med 03/31/21 14:13 Once 125 mg IVPUSH ONETIME ONE Blood Culture x2 Reflex Set [OM.PC] Stat Oth 03/31/21 10:42 Ordered Isolation [COMM] Routine Oth 03/31/21 09:35 Ordered Saline Lock Insert [OM.PC] Stat Oth 03/31/21 09:35 Ordered Resuscitation Status Routine Resus Stat 03/31/21 14:19 Ordered Medication Orders Sodium Chloride (Normal Saline) 100 mls @ 75 mls/hr IV ASDIRECTED ROYS Last Admin: 03/31/21 10:56 Dose: 75 mls/hr Documented by: ALEXA Ceftriaxone Sodium 1 gm/ (Sodium Chloride) 100 mls @ 200 mls/hr IV ONETIME ONE Stop: 03/31/21 14:59 Ceftriaxone Sodium 2 gm/ (Sodium Chloride) 100 mls @ 200 mls/hr IV Q24H ROSY Doxycycline Hyclate 100 mg/ (Sodium Chloride) 100 mls @ 100 mls/hr IV Q12H ROSY Furosemide 100 mg/ Sodium (Chloride) 100 mls @ 10 mls/hr IV TITRATE ROSY; Protocol Methylprednisolone Sodium Succinate (Methylprednisolone Sodium Succinate 125 Mg/2 Ml Sdv) 125 mg IVPUSH ONETIME ONE Stop: 03/31/21 14:31 Sodium Chloride (Sodium Chloride 0.9% 10 Ml Syringe) 10 ml FLUSH ASDIRECTED PRN PRN Reason: Keep Vein Open Last Admin: 03/31/21 10:28 Dose: 10 ml Documented by: DIAN Sodium Chloride (Sodium Chloride 0.9% 10 Ml Syringe) 10 ml FLUSH ONETIME PRN PRN Reason: IV FLUSH Last Admin: 03/31/21 10:56 Dose: 10 ml Documented by: ALEXA Assessment/Plan Comment:: 56-year-old female with no prior medical history brought to emergency department in respiratory failure. Acute respiratory failure secondary to hypercapnia and hypoxemia Respiratory acidosis Likely severe COPD exacerbation Tobaccoism/30+-pack-year history * Patient with 8 days of symptoms and reported FiO2 of 50% the night prior to arrival in the emergency department * Severe hypercapnia with respiratory acidosis on arrival to the emergency department * White count 24,000, CRP 35 * CT of the chest consistent with a bronchitis/bronchiolitis * Negative influenza and Covid in the emergency department. * Started on BiPAP in the emergency department * She likely has underlying heart and lung disease based on history. Decompensated CHF Elevated troponin with likely type II MO * Unknown if there is underlying heart disease * Given a total of 80 mg of Lasix in the emergency department. * Troponin 0 0.829 * proBNP 14,900 * Elevated LFTs likely secondary to heart failure with liver congestion. Elevated LFTs Alcohol abuse * Known history of heavy alcohol use * AST 970, ALT 488, alkaline phosphatase 135 * Last alcohol 8 days ago * No history of withdrawal symptoms Plan * Admit to ICU * Titrate BiPAP to improve PCO2 * Blood gases as needed * Solu-Medrol 125 mg IV x1 then 40 mg every 6 hours * Start Lasix drip at 10 mL an hour and titrate to keep urine output greater than 150 * Albuterol and atropine bromide as needed * Respiratory therapist consulted * Nicotine patch * CBC, CMP, mag, CRP in the morning * Check procalcitonin * Strict I's and O's and daily weights VTE prophylaxis with Lovenox CODE STATUS: Full code - Mortality Measure Prognosis:: Poor
[2021-03-31] MEDS ORDERED: methylPREDNISolone Sodium Succinate 125 MG/2 ML SDV IVPUSH ONE (14:30)
[2021-03-31] MEDS: Doxycycline 100 MG in Sodium Chloride 0.9% 100 ML IV SCH (15:01)
[2021-03-31] MEDS: Furosemide 100 MG in Sodium Chloride 0.9% 90 ML IV SCH ×2 (15:54→23:56)
[2021-03-31] MEDS ORDERED: Nicotine 21 MG/24 Hr Patch TRDERM ONE (16:15)
[2021-03-31] MEDS: Albuterol/Ipratropium 3.0-0.5 MG/3 ML Neb Soln NEB PRN ×2 (17:41→21:07)
[2021-03-31] MEDS: methylPREDNISolone Sodium Succinate 40 MG/1 ML SDV IVPUSH SCH (21:17)
[2021-04-01] MEDS: Albuterol/Ipratropium 3.0-0.5 MG/3 ML Neb Soln NEB PRN ×4 (01:10→20:58)
[2021-04-01] MEDS: methylPREDNISolone Sodium Succinate 40 MG/1 ML SDV IVPUSH SCH ×4 (02:03→20:41)
[2021-04-01] MEDS: Doxycycline 100 MG in Sodium Chloride 0.9% 100 ML IV SCH ×2 (03:58→14:59)
[2021-04-01] MEDS: Enoxaparin 40 MG/0.4 ML Syringe SUBCUT SCH (09:14)
[2021-04-01] MEDS: Nicotine 21 MG/24 Hr Patch TRDERM SCH (09:14)
[2021-04-01] MEDS: guaiFENesin 600 MG Tab.ER PO SCH ×4 (09:32→22:22)
--- NOTE | 2021-04-01 09:50 | CR ---
EXAM: XR CHEST 1 VIEW LOCATION: [facility] DATE/TIME: 04/01/2021 8:55 AM INDICATION: Respiratory failure COMPARISON: 03/31/2021 IMPRESSION: Mildly enlarged cardiac silhouette with mild pulmonary venous hypertension and interstitial edema, suggesting congestive heart failure or fluid overload. Probable small bilateral pleural effusions. No change from yesterday. SIGNED BY: Shane Valero MD 04/01/2021 10:21 AM EVGENY
[2021-04-01] MEDS ORDERED: Furosemide 40 MG/4 ML VIAL IVPUSH ONE (10:17)
--- NOTE | 2021-04-01 13:28 | PCM.PN ---
- General Info Date of Service: 04/01/21 Admission Dx/Problem (Free Text): Admission Diagnosis/Problem Admission Diagnosis/Problem Pneumonia Subjective Update: Barbara improved overnight. She is much more alert and awake. She was able to eat breakfast on nasal cannula. PCO2 did come down from 91 to 80. Blood gases still shows a pH of 7.26. Functional Status: Reports: Pain Controlled - Review of Systems General: Reports: Fatigue HEENT: Reports: No Symptoms Pulmonary: Reports: Shortness of Breath, Cough Cardiovascular: Reports: No Symptoms Gastrointestinal: Reports: No Symptoms Musculoskeletal: Reports: No Symptoms Skin: Reports: No Symptoms Neurological: Reports: No Symptoms - Patient Data Vitals - Most Recent: Last Vital Signs Temp 96.5 F L 04/01/21 12:00 Pulse 81 04/01/21 12:00 Resp 29 H 04/01/21 12:00 BP 114/77 04/01/21 12:00 Pulse Ox 93 L 04/01/21 12:57 Weight - Most Recent: 169 lb 4.8 oz I&O - Last 24 Hours: Intake & Output 03/31/21 04/01/21 04/01/21 22:59 06:59 14:59 Intake Total 310 100 120 Output Total 910 540 530 Balance -600 -440 -410 Lab Results Last 24 Hours: Laboratory Results - last 24 hr 03/31/21 03/31/21 03/31/21 Range/Units 09:30 09:35 14:13 WBC (3.98-10.04) K/mm3 RBC (3.98-5.22) M/mm3 Hgb (11.2-15.7) gm/dl Hct (34.1-44.9) % MCV (79.4-94.8) fl MCH (25.6-32.2) pg MCHC (32.2-35.5) g/dl RDW Std Deviation (36.4-46.3) fL Plt Count (182-369) K/mm3 MPV (9.4-12.3) fl Neut % (Auto) (34.0-71.1) % Lymph % (Auto) (19.3-51.7) % [place] % (Auto) (4.7-12.5) % Eos % (Auto) (0.7-5.8) Baso % (Auto) (0.1-1.2) % Neut # (Auto) (1.56-6.13) K/mm3 Lymph # (Auto) (1.18-3.74) K/mm3 [place] # (Auto) (0.24-0.36) K/mm3 Eos # (Auto) (0.04-0.36) K/mm3 Baso # (Auto) (0.01-0.08) K/mm3 Manual Slide Review Puncture Site Rt radial ABG pH 7.21 L (7.35-7.45) ABG pCO2 91.2 H* (35.0-45.0) mmHg ABG pO2 107.0 H (80.0-100.0) mmHg ABG HCO3 34.9 H (22.0-26.0) meq/L ABG O2 Saturation 96.7 (96.0-97.0) % ABG Base Excess 3.7 H (-2-2.0) Jairo Test Positive A-a Gradient 207 mmHg O2 Delivery Device Bipap FiO2 (21.00-100.00) % PEEP 5.0 cmH20 Pressure Support 10.0 cmH2O Sodium (136-145) mEq/L Potassium (3.5-5.1) mEq/L Chloride (98-107) mEq/L Carbon Dioxide (21-32) mEq/L Anion Gap (5-15) BUN (7-18) mg/dL Creatinine (0.55-1.02) mg/dL Est Cr Clr Drug Dosing mL/min Estimated GFR (MDRD) (>60) mL/min BUN/Creatinine Ratio (14-18) Glucose (70-99) mg/dL Calcium (8.5-10.1) mg/dL Phosphorus (2.6-4.7) mg/dL Magnesium (1.8-2.4) mg/dL Total Bilirubin (0.2-1.0) mg/dL AST (15-37) U/L ALT (14-59) U/L Alkaline Phosphatase (46-116) U/L C-Reactive Protein (<1.0) mg/dL Total Protein (6.4-8.2) g/dl Albumin (3.4-5.0) g/dl Globulin gm/dL Albumin/Globulin Ratio (1-2) Procalcitonin 0.76 H ng/mL RSV RNA (INAAT) Negative (NEGATIVE) 03/31/21 03/31/21 03/31/21 Range/Units 15:29 15:38 18:08 WBC (3.98-10.04) K/mm3 RBC (3.98-5.22) M/mm3 Hgb (11.2-15.7) gm/dl Hct (34.1-44.9) % MCV (79.4-94.8) fl MCH (25.6-32.2) pg MCHC (32.2-35.5) g/dl RDW Std Deviation (36.4-46.3) fL Plt Count (182-369) K/mm3 MPV (9.4-12.3) fl Neut % (Auto) (34.0-71.1) % Lymph % (Auto) (19.3-51.7) % [place] % (Auto) (4.7-12.5) % Eos % (Auto) (0.7-5.8) Baso % (Auto) (0.1-1.2) % Neut # (Auto) (1.56-6.13) K/mm3 Lymph # (Auto) (1.18-3.74) K/mm3 [place] # (Auto) (0.24-0.36) K/mm3 Eos # (Auto) (0.04-0.36) K/mm3 Baso # (Auto) (0.01-0.08) K/mm3 Manual Slide Review Puncture Site Rt radial Rt radial ABG pH 7.22 L 7.23 L (7.35-7.45) ABG pCO2 88.2 H* 86.9 H* (35.0-45.0) mmHg ABG pO2 89.0 84.0 (80.0-100.0) mmHg ABG HCO3 34.5 H 34.7 H (22.0-26.0) meq/L ABG O2 Saturation 94.1 L 93.7 L (96.0-97.0) % ABG Base Excess 3.7 H 3.8 H (-2-2.0) Jairo Test Positive Positive A-a Gradient mmHg O2 Delivery Device Bipap Bipap FiO2 (21.00-100.00) % PEEP 5.0 5.0 cmH20 Pressure Support 15.0 20.0 cmH2O Sodium 132 L (136-145) mEq/L Potassium 4.6 (3.5-5.1) mEq/L Chloride 91 L (98-107) mEq/L Carbon Dioxide 35 H (21-32) mEq/L Anion Gap 10.6 (5-15) BUN 38 H (7-18) mg/dL Creatinine 1.0 (0.55-1.02) mg/dL Est Cr Clr Drug Dosing 64.87 mL/min Estimated GFR (MDRD) 57 (>60) mL/min BUN/Creatinine Ratio 38.0 H (14-18) Glucose 122 H (70-99) mg/dL Calcium 9.0 (8.5-10.1) mg/dL Phosphorus (2.6-4.7) mg/dL Magnesium (1.8-2.4) mg/dL Total Bilirubin (0.2-1.0) mg/dL AST (15-37) U/L ALT (14-59) U/L Alkaline Phosphatase (46-116) U/L C-Reactive Protein (<1.0) mg/dL Total Protein (6.4-8.2) g/dl Albumin (3.4-5.0) g/dl Globulin gm/dL Albumin/Globulin Ratio (1-2) Procalcitonin ng/mL RSV RNA (INAAT) (NEGATIVE) 03/31/21 04/01/21 04/01/21 Range/Units 20:43 03:45 03:55 WBC 29.15 H (3.98-10.04) K/mm3 RBC 4.69 (3.98-5.22) M/mm3 Hgb 14.0 (11.2-15.7) gm/dl Hct 44.8 (34.1-44.9) % MCV 95.5 H D (79.4-94.8) fl MCH 29.9 (25.6-32.2) pg MCHC 31.3 L (32.2-35.5) g/dl RDW Std Deviation 47.6 H (36.4-46.3) fL Plt Count 342 (182-369) K/mm3 MPV 10.9 (9.4-12.3) fl Neut % (Auto) 86.5 H (34.0-71.1) % Lymph % (Auto) 7.3 L (19.3-51.7) % [place] % (Auto) 2.9 L (4.7-12.5) % Eos % (Auto) 0 L (0.7-5.8) Baso % (Auto) 0.8 (0.1-1.2) % Neut # (Auto) 25.20 H (1.56-6.13) K/mm3 Lymph # (Auto) 2.14 (1.18-3.74) K/mm3 [place] # (Auto) 0.85 H (0.24-0.36) K/mm3 Eos # (Auto) 0.00 L (0.04-0.36) K/mm3 Baso # (Auto) 0.23 H (0.01-0.08) K/mm3 Manual Slide Review Abnormal smear Puncture Site Rt radial Lt radial ABG pH 7.25 L 7.26 L (7.35-7.45) ABG pCO2 79.7 H* 80.9 H* (35.0-45.0) mmHg ABG pO2 87.0 104.0 H (80.0-100.0) mmHg ABG HCO3 33.8 H 35.4 H (22.0-26.0) meq/L ABG O2 Saturation 94.3 L 96.8 (96.0-97.0) % ABG Base Excess 4.0 H 5.2 H (-2-2.0) Jairo Test A-a Gradient 169 151 mmHg O2 Delivery Device Bipap Bipap FiO2 50.00 50.00 (21.00-100.00) % PEEP 5.0 cmH20 Pressure Support 20.0 cmH2O Sodium (136-145) mEq/L Potassium (3.5-5.1) mEq/L Chloride (98-107) mEq/L Carbon Dioxide (21-32) mEq/L Anion Gap (5-15) BUN (7-18) mg/dL Creatinine (0.55-1.02) mg/dL Est Cr Clr Drug Dosing mL/min Estimated GFR (MDRD) (>60) mL/min BUN/Creatinine Ratio (14-18) Glucose (70-99) mg/dL Calcium (8.5-10.1) mg/dL Phosphorus (2.6-4.7) mg/dL Magnesium (1.8-2.4) mg/dL Total Bilirubin (0.2-1.0) mg/dL AST (15-37) U/L ALT (14-59) U/L Alkaline Phosphatase (46-116) U/L C-Reactive Protein (<1.0) mg/dL Total Protein (6.4-8.2) g/dl Albumin (3.4-5.0) g/dl Globulin gm/dL Albumin/Globulin Ratio (1-2) Procalcitonin ng/mL RSV RNA (INAAT) (NEGATIVE) 04/01/21 Range/Units 03:55 WBC (3.98-10.04) K/mm3 RBC (3.98-5.22) M/mm3 Hgb (11.2-15.7) gm/dl Hct (34.1-44.9) % MCV (79.4-94.8) fl MCH (25.6-32.2) pg MCHC (32.2-35.5) g/dl RDW Std Deviation (36.4-46.3) fL Plt Count (182-369) K/mm3 MPV (9.4-12.3) fl Neut % (Auto) (34.0-71.1) % Lymph % (Auto) (19.3-51.7) % [place] % (Auto) (4.7-12.5) % Eos % (Auto) (0.7-5.8) Baso % (Auto) (0.1-1.2) % Neut # (Auto) (1.56-6.13) K/mm3 Lymph # (Auto) (1.18-3.74) K/mm3 [place] # (Auto) (0.24-0.36) K/mm3 Eos # (Auto) (0.04-0.36) K/mm3 Baso # (Auto) (0.01-0.08) K/mm3 Manual Slide Review Puncture Site ABG pH (7.35-7.45) ABG pCO2 (35.0-45.0) mmHg ABG pO2 (80.0-100.0) mmHg ABG HCO3 (22.0-26.0) meq/L ABG O2 Saturation (96.0-97.0) % ABG Base Excess (-2-2.0) Jairo Test A-a Gradient mmHg O2 Delivery Device FiO2 (21.00-100.00) % PEEP cmH20 Pressure Support cmH2O Sodium 135 L (136-145) mEq/L Potassium 4.5 (3.5-5.1) mEq/L Chloride 95 L (98-107) mEq/L Carbon Dioxide 36 H (21-32) mEq/L Anion Gap 8.5 (5-15) BUN 44 H (7-18) mg/dL Creatinine 1.1 H (0.55-1.02) mg/dL Est Cr Clr Drug Dosing 58.97 mL/min Estimated GFR (MDRD) 51 (>60) mL/min BUN/Creatinine Ratio 40.0 H (14-18) Glucose 126 H (70-99) mg/dL Calcium 8.9 (8.5-10.1) mg/dL Phosphorus 4.9 H (2.6-4.7) mg/dL Magnesium 2.7 H (1.8-2.4) mg/dL Total Bilirubin 0.5 (0.2-1.0) mg/dL AST 456 H (15-37) U/L ALT 525 H (14-59) U/L Alkaline Phosphatase 130 H (46-116) U/L C-Reactive Protein 32.2 H* (<1.0) mg/dL Total Protein 7.8 (6.4-8.2) g/dl Albumin 2.6 L (3.4-5.0) g/dl Globulin 5.2 gm/dL Albumin/Globulin Ratio 0.5 L (1-2) Procalcitonin ng/mL RSV RNA (INAAT) (NEGATIVE) Med Orders - Current: Current Medications Acetaminophen (Acetaminophen 325 Mg Tab) 650 mg PO Q4H PRN PRN Reason: Pain (Mild 1-3)/fever Albuterol (Albuterol 0.083% 2.5 Mg/3 Ml Neb Soln) 2.5 mg NEB Q2H PRN PRN Reason: Shortness Of Breath/wheezing Last Admin: 04/01/21 07:49 Dose: 2.5 mg Documented by: Albuterol/Ipratropium (Albuterol/Ipratropium 3.0-0.5 Mg/3 Ml Neb Soln) 3 ml NEB Q4H PRN PRN Reason: Shortness Of Breath/wheezing Last Admin: 04/01/21 12:57 Dose: 3 ml Documented by: Enoxaparin Sodium (Enoxaparin 40 Mg/0.4 Ml Syringe) 40 mg SUBCUT DAILY [facility] Last Admin: 04/01/21 09:14 Dose: 40 mg Documented by: Guaifenesin (Guaifenesin 600 Mg Tab.Er) 600 mg PO TID [facility] Last Admin: 04/01/21 13:13 Dose: 600 mg Documented by: Sodium Chloride (Normal Saline) 100 mls @ 75 mls/hr IV ASDIRECTED [facility] Last Admin: 03/31/21 10:56 Dose: 75 mls/hr Documented by: Ceftriaxone Sodium 2 gm/ (Sodium Chloride) 100 mls @ 200 mls/hr IV Q24H [facility] Doxycycline Hyclate 100 mg/ (Sodium Chloride) 100 mls @ 100 mls/hr IV Q12H [facility] Last Admin: 04/01/21 03:58 Dose: 100 mls/hr Documented by: Methylprednisolone Sodium Succinate (Methylprednisolone Sodium Succinate 40 Mg/1 Ml Sdv) 60 mg IVPUSH Q6H [facility] Last Admin: 04/01/21 09:08 Dose: 60 mg Documented by: Miscellaneous Information (Remove And Replace Nicotine Patch) 1 ea TRDERM DAILY [facility] Nicotine (Nicotine 21 Mg/24 Hr Patch) 21 mg TRDERM DAILY [facility] Last Admin: 04/01/21 09:14 Dose: 21 mg Documented by: Ondansetron HCl (Ondansetron 4 Mg/2 Ml Sdv) 4 mg IV Q6H PRN PRN Reason: Nausea/Vomiting Sodium Chloride (Sodium Chloride 0.9% 10 Ml Syringe) 10 ml FLUSH ASDIRECTED PRN PRN Reason: Keep Vein Open Last Admin: 03/31/21 10:28 Dose: 10 ml Documented by: Discontinued Medications Albuterol (Albuterol 0.083% 2.5 Mg/3 Ml Neb Soln) 2.5 mg NEB ONETIME ONE Stop: 03/31/21 09:51 Last Admin: 03/31/21 10:00 Dose: 2.5 mg Documented by: Aspirin (Aspirin 81 Mg Tab.Chew) 324 mg PO ONETIME ONE Stop: 03/31/21 10:20 Last Admin: 03/31/21 10:27 Dose: 324 mg Documented by: Furosemide (Furosemide 40 Mg/4 Ml Vial) 40 mg IVPUSH NOW ONE Stop: 03/31/21 11:02 Last Admin: 03/31/21 11:11 Dose: 40 mg Documented by: Furosemide (Furosemide 40 Mg/4 Ml Vial) 40 mg IVPUSH NOW ONE Stop: 03/31/21 12:41 Last Admin: 03/31/21 12:48 Dose: 40 mg Documented by: Furosemide (Furosemide 40 Mg/4 Ml Vial) 60 mg IVPUSH NOW ONE Stop: 04/01/21 10:18 Last Admin: 04/01/21 10:57 Dose: 60 mg Documented by: Ceftriaxone Sodium 1 gm/ (Sodium Chloride) 100 mls @ 200 mls/hr IV ONETIME ONE Stop: 03/31/21 11:21 Last Admin: 03/31/21 11:14 Dose: 200 mls/hr Documented by: Sodium Chloride (Normal Saline) Confirm Administered Dose 1,000 mls @ as directed .ROUTE .STK-MED ONE Stop: 03/31/21 10:59 Last Admin: 03/31/21 11:12 Dose: Not Given Documented by: Ceftriaxone Sodium 1 gm/ (Sodium Chloride) 100 mls @ 200 mls/hr IV ONETIME ONE Stop: 03/31/21 14:59 Last Admin: 03/31/21 14:41 Dose: 200 mls/hr Documented by: Furosemide 100 mg/ Sodium (Chloride) 100 mls @ 10 mls/hr IV TITRATE ROSY; Protocol Last Infusion: 04/01/21 03:30 Dose: 0 mls/hr Documented by: Iopamidol (Iopamidol 755 Mg/Ml 100 Ml Bottle) 100 ml IVPUSH ONETIME ONE Stop: 03/31/21 10:44 Last Admin: 03/31/21 10:56 Dose: 100 ml Documented by: Methylprednisolone Sodium Succinate (Methylprednisolone Sodium Succinate 125 Mg/2 Ml Sdv) 125 mg IVPUSH ONETIME ONE Stop: 03/31/21 14:31 Last Admin: 03/31/21 14:44 Dose: 125 mg Documented by: Nicotine (Nicotine 21 Mg/24 Hr Patch) 21 mg TRDERM ONETIME ONE Stop: 03/31/21 16:16 Last Admin: 03/31/21 16:44 Dose: 21 mg Documented by: Sodium Chloride (Sodium Chloride 0.9% 10 Ml Syringe) 10 ml FLUSH ONETIME PRN PRN Reason: IV FLUSH Last Admin: 03/31/21 10:56 Dose: 10 ml Documented by: - Exam Quality Assessment: Supplemental Oxygen, Urine Catheter Urinary Catheter Total Time: 1Days 0Hours General: Alert, Oriented HEENT: Pupils Equal, Mucous Membr. Moist/[place] Neck: Supple Lungs: Crackles, Rhonchi, Wheezing. No: Normal Respiratory Effort Cardiovascular: Regular Rate, Regular Rhythm GI/Abdominal Exam: Normal Bowel Sounds, Soft, Non-Tender, No Distention Extremities: Normal Inspection, Normal Range of Motion, Non-Tender, No Pedal Edema, Normal Capillary Refill Skin: Warm, Dry, Intact Psy/Mental Status: Alert, Normal Affect, Normal Mood - Patient Data Lab Results Last 24 hrs: Laboratory Results - last 24 hr 03/31/21 03/31/21 03/31/21 Range/Units 09:30 09:35 14:13 WBC (3.98-10.04) K/mm3 RBC (3.98-5.22) M/mm3 Hgb (11.2-15.7) gm/dl Hct (34.1-44.9) % MCV (79.4-94.8) fl MCH (25.6-32.2) pg MCHC (32.2-35.5) g/dl RDW Std Deviation (36.4-46.3) fL Plt Count (182-369) K/mm3 MPV (9.4-12.3) fl Neut % (Auto) (34.0-71.1) % Lymph % (Auto) (19.3-51.7) % [place] % (Auto) (4.7-12.5) % Eos % (Auto) (0.7-5.8) Baso % (Auto) (0.1-1.2) % Neut # (Auto) (1.56-6.13) K/mm3 Lymph # (Auto) (1.18-3.74) K/mm3 [place] # (Auto) (0.24-0.36) K/mm3 Eos # (Auto) (0.04-0.36) K/mm3 Baso # (Auto) (0.01-0.08) K/mm3 Manual Slide Review Puncture Site Rt radial ABG pH 7.21 L (7.35-7.45) ABG pCO2 91.2 H* (35.0-45.0) mmHg ABG pO2 107.0 H (80.0-100.0) mmHg ABG HCO3 34.9 H (22.0-26.0) meq/L ABG O2 Saturation 96.7 (96.0-97.0) % ABG Base Excess 3.7 H (-2-2.0) Jairo Test Positive A-a Gradient 207 mmHg O2 Delivery Device Bipap FiO2 (21.00-100.00) % PEEP 5.0 cmH20 Pressure Support 10.0 cmH2O Sodium (136-145) mEq/L Potassium (3.5-5.1) mEq/L Chloride (98-107) mEq/L Carbon Dioxide (21-32) mEq/L Anion Gap (5-15) BUN (7-18) mg/dL Creatinine (0.55-1.02) mg/dL Est Cr Clr Drug Dosing mL/min Estimated GFR (MDRD) (>60) mL/min BUN/Creatinine Ratio (14-18) Glucose (70-99) mg/dL Calcium (8.5-10.1) mg/dL Phosphorus (2.6-4.7) mg/dL Magnesium (1.8-2.4) mg/dL Total Bilirubin (0.2-1.0) mg/dL AST (15-37) U/L ALT (14-59) U/L Alkaline Phosphatase (46-116) U/L C-Reactive Protein (<1.0) mg/dL Total Protein (6.4-8.2) g/dl Albumin (3.4-5.0) g/dl Globulin gm/dL Albumin/Globulin Ratio (1-2) Procalcitonin 0.76 H ng/mL RSV RNA (INAAT) Negative (NEGATIVE) 03/31/21 03/31/21 03/31/21 Range/Units 15:29 15:38 18:08 WBC (3.98-10.04) K/mm3 RBC (3.98-5.22) M/mm3 Hgb (11.2-15.7) gm/dl Hct (34.1-44.9) % MCV (79.4-94.8) fl MCH (25.6-32.2) pg MCHC (32.2-35.5) g/dl RDW Std Deviation (36.4-46.3) fL Plt Count (182-369) K/mm3 MPV (9.4-12.3) fl Neut % (Auto) (34.0-71.1) % Lymph % (Auto) (19.3-51.7) % [place] % (Auto) (4.7-12.5) % Eos % (Auto) (0.7-5.8) Baso % (Auto) (0.1-1.2) % Neut # (Auto) (1.56-6.13) K/mm3 Lymph # (Auto) (1.18-3.74) K/mm3 [place] # (Auto) (0.24-0.36) K/mm3 Eos # (Auto) (0.04-0.36) K/mm3 Baso # (Auto) (0.01-0.08) K/mm3 Manual Slide Review Puncture Site Rt radial Rt radial ABG pH 7.22 L 7.23 L (7.35-7.45) ABG pCO2 88.2 H* 86.9 H* (35.0-45.0) mmHg ABG pO2 89.0 84.0 (80.0-100.0) mmHg ABG HCO3 34.5 H 34.7 H (22.0-26.0) meq/L ABG O2 Saturation 94.1 L 93.7 L (96.0-97.0) % ABG Base Excess 3.7 H 3.8 H (-2-2.0) Jairo Test Positive Positive A-a Gradient mmHg O2 Delivery Device Bipap Bipap FiO2 (21.00-100.00) % PEEP 5.0 5.0 cmH20 Pressure Support 15.0 20.0 cmH2O Sodium 132 L (136-145) mEq/L Potassium 4.6 (3.5-5.1) mEq/L Chloride 91 L (98-107) mEq/L Carbon Dioxide 35 H (21-32) mEq/L Anion Gap 10.6 (5-15) BUN 38 H (7-18) mg/dL Creatinine 1.0 (0.55-1.02) mg/dL Est Cr Clr Drug Dosing 64.87 mL/min Estimated GFR (MDRD) 57 (>60) mL/min BUN/Creatinine Ratio 38.0 H (14-18) Glucose 122 H (70-99) mg/dL Calcium 9.0 (8.5-10.1) mg/dL Phosphorus (2.6-4.7) mg/dL Magnesium (1.8-2.4) mg/dL Total Bilirubin (0.2-1.0) mg/dL AST (15-37) U/L ALT (14-59) U/L Alkaline Phosphatase (46-116) U/L C-Reactive Protein (<1.0) mg/dL Total Protein (6.4-8.2) g/dl Albumin (3.4-5.0) g/dl Globulin gm/dL Albumin/Globulin Ratio (1-2) Procalcitonin ng/mL RSV RNA (INAAT) (NEGATIVE) 03/31/21 04/01/21 04/01/21 Range/Units 20:43 03:45 03:55 WBC 29.15 H (3.98-10.04) K/mm3 RBC 4.69 (3.98-5.22) M/mm3 Hgb 14.0 (11.2-15.7) gm/dl Hct 44.8 (34.1-44.9) % MCV 95.5 H D (79.4-94.8) fl MCH 29.9 (25.6-32.2) pg MCHC 31.3 L (32.2-35.5) g/dl RDW Std Deviation 47.6 H (36.4-46.3) fL Plt Count 342 (182-369) K/mm3 MPV 10.9 (9.4-12.3) fl Neut % (Auto) 86.5 H (34.0-71.1) % Lymph % (Auto) 7.3 L (19.3-51.7) % [place] % (Auto) 2.9 L (4.7-12.5) % Eos % (Auto) 0 L (0.7-5.8) Baso % (Auto) 0.8 (0.1-1.2) % Neut # (Auto) 25.20 H (1.56-6.13) K/mm3 Lymph # (Auto) 2.14 (1.18-3.74) K/mm3 [place] # (Auto) 0.85 H (0.24-0.36) K/mm3 Eos # (Auto) 0.00 L (0.04-0.36) K/mm3 Baso # (Auto) 0.23 H (0.01-0.08) K/mm3 Manual Slide Review Abnormal smear Puncture Site Rt radial Lt radial ABG pH 7.25 L 7.26 L (7.35-7.45) ABG pCO2 79.7 H* 80.9 H* (35.0-45.0) mmHg ABG pO2 87.0 104.0 H (80.0-100.0) mmHg ABG HCO3 33.8 H 35.4 H (22.0-26.0) meq/L ABG O2 Saturation 94.3 L 96.8 (96.0-97.0) % ABG Base Excess 4.0 H 5.2 H (-2-2.0) Jairo Test A-a Gradient 169 151 mmHg O2 Delivery Device Bipap Bipap FiO2 50.00 50.00 (21.00-100.00) % PEEP 5.0 cmH20 Pressure Support 20.0 cmH2O Sodium (136-145) mEq/L Potassium (3.5-5.1) mEq/L Chloride (98-107) mEq/L Carbon Dioxide (21-32) mEq/L Anion Gap (5-15) BUN (7-18) mg/dL Creatinine (0.55-1.02) mg/dL Est Cr Clr Drug Dosing mL/min Estimated GFR (MDRD) (>60) mL/min BUN/Creatinine Ratio (14-18) Glucose (70-99) mg/dL Calcium (8.5-10.1) mg/dL Phosphorus (2.6-4.7) mg/dL Magnesium (1.8-2.4) mg/dL Total Bilirubin (0.2-1.0) mg/dL AST (15-37) U/L ALT (14-59) U/L Alkaline Phosphatase (46-116) U/L C-Reactive Protein (<1.0) mg/dL Total Protein (6.4-8.2) g/dl Albumin (3.4-5.0) g/dl Globulin gm/dL Albumin/Globulin Ratio (1-2) Procalcitonin ng/mL RSV RNA (INAAT) (NEGATIVE) 04/01/21 Range/Units 03:55 WBC (3.98-10.04) K/mm3 RBC (3.98-5.22) M/mm3 Hgb (11.2-15.7) gm/dl Hct (34.1-44.9) % MCV (79.4-94.8) fl MCH (25.6-32.2) pg MCHC (32.2-35.5) g/dl RDW Std Deviation (36.4-46.3) fL Plt Count (182-369) K/mm3 MPV (9.4-12.3) fl Neut % (Auto) (34.0-71.1) % Lymph % (Auto) (19.3-51.7) % [place] % (Auto) (4.7-12.5) % Eos % (Auto) (0.7-5.8) Baso % (Auto) (0.1-1.2) % Neut # (Auto) (1.56-6.13) K/mm3 Lymph # (Auto) (1.18-3.74) K/mm3 [place] # (Auto) (0.24-0.36) K/mm3 Eos # (Auto) (0.04-0.36) K/mm3 Baso # (Auto) (0.01-0.08) K/mm3 Manual Slide Review Puncture Site ABG pH (7.35-7.45) ABG pCO2 (35.0-45.0) mmHg ABG pO2 (80.0-100.0) mmHg ABG HCO3 (22.0-26.0) meq/L ABG O2 Saturation (96.0-97.0) % ABG Base Excess (-2-2.0) [place] Test A-a Gradient mmHg O2 Delivery Device FiO2 (21.00-100.00) % PEEP cmH20 Pressure Support cmH2O Sodium 135 L (136-145) mEq/L Potassium 4.5 (3.5-5.1) mEq/L Chloride 95 L (98-107) mEq/L Carbon Dioxide 36 H (21-32) mEq/L Anion Gap 8.5 (5-15) BUN 44 H (7-18) mg/dL Creatinine 1.1 H (0.55-1.02) mg/dL Est Cr Clr Drug Dosing 58.97 mL/min Estimated GFR (MDRD) 51 (>60) mL/min BUN/Creatinine Ratio 40.0 H (14-18) Glucose 126 H (70-99) mg/dL Calcium 8.9 (8.5-10.1) mg/dL Phosphorus 4.9 H (2.6-4.7) mg/dL Magnesium 2.7 H (1.8-2.4) mg/dL Total Bilirubin 0.5 (0.2-1.0) mg/dL AST 456 H (15-37) U/L ALT 525 H (14-59) U/L Alkaline Phosphatase 130 H (46-116) U/L C-Reactive Protein 32.2 H* (<1.0) mg/dL Total Protein 7.8 (6.4-8.2) g/dl Albumin 2.6 L (3.4-5.0) g/dl Globulin 5.2 gm/dL Albumin/Globulin Ratio 0.5 L (1-2) Procalcitonin ng/mL RSV RNA (INAAT) (NEGATIVE) Result Diagrams: 04/01/21 03:55 04/01/21 03:55 Sepsis Event Note - Evaluation Sepsis Screening Result: Severe Sepsis Risk - Focused Exam Vital Signs: Vital Signs Temp Pulse Resp BP Pulse Ox Pulse Ox 04/01/21 12:57 93 L 04/01/21 12:00 96.5 F L 81 29 H 114/77 93 L 04/01/21 11:52 93 L 04/01/21 10:00 96.1 F L 90 120/80 04/01/21 08:29 94 L 04/01/21 08:00 96.1 F L 80 28 H 121/76 92 L 04/01/21 07:49 94 L 04/01/21 06:11 92 L 04/01/21 06:00 78 20 98/69 91 L 04/01/21 04:12 96 04/01/21 04:00 96.8 F L 77 25 H 117/67 96 04/01/21 02:00 87 29 H 111/78 96 - Problem List & Annotations (1) Respiratory failure with hypoxia and hypercapnia SNOMED Code(s): 45559506 Code(s): J96.91 - RESPIRATORY FAILURE, UNSPECIFIED WITH HYPOXIA; J96.92 - RESPIRATORY FAILURE, UNSPECIFIED WITH HYPERCAPNIA Status: Acute Current Visit: Yes (2) Reactive airway disease SNOMED Code(s): 588982809077 Code(s): J45.909 - UNSPECIFIED ASTHMA, UNCOMPLICATED Status: Acute Current Visit: Yes (3) Congestive heart failure SNOMED Code(s): 71184423 Code(s): I50.9 - HEART FAILURE, UNSPECIFIED Status: Acute Current Visit: Yes Qualifiers: Heart failure type: unspecified Heart failure chronicity: unspecified Qualified Code(s): I50.9 - Heart failure, unspecified (4) Elevated troponin SNOMED Code(s): 203343771, 308100941, 280822408 Code(s): R77.8 - OTHER SPECIFIED ABNORMALITIES OF PLASMA PROTEINS Status: Acute Current Visit: Yes - Problem List Review Problem List Initiated/Reviewed/Updated: Yes - My Orders Last 24 Hours: My Active Orders 03/31/21 14:19 Oxygen Therapy [RC] PRN Up With Assistance [RC] ASDIRECTED VTE/DVT Education [RC] Vital Signs [RC] Q2HR Respiratory Care Assess and Treatment [CONS] Routine Acetaminophen [TylenoL] 650 mg PO Q4H PRN Albuterol [Proventil Neb Soln] 2.5 mg NEB Q2H PRN Albuterol/Ipratropium [DuoNeb 3.0-0.5 MG/3 ML] 3 ml NEB Q4H PRN Ondansetron [Zofran] 4 mg IV Q6H PRN Resuscitation Status Routine 03/31/21 14:21 RT Aerosol Therapy [RC] ASDIRECTED 03/31/21 15:06 Intake and Output Strict [RC] Q2HR RESPIRATORY PANEL Routine 03/31/21 16:00 Doxycycline [Vibramycin] 100 mg Sodium Chloride 0.9% [Normal Saline] 100 ml IV Q12H 03/31/21 Dinner Regular Diet [DIET] 03/31/21 17:34 Urinary Catheter Assessment [RC] Q4HR 03/31/21 17:45 Jamil Catheter Insertion [Insert Urinary Catheter] [OM.PC] Q24H 03/31/21 20:00 RT Arterial Blood Gases, ABG [RC] Click to Edit methylPREDNISolone Sod Succ [Solu-MEDROL] 60 mg IVPUSH Q6H 03/31/21 21:40 Communication Order [RC] ASDIRECTED 04/01/21 03:41 Communication Order [RC] ROUTINE 04/01/21 09:00 Enoxaparin [Lovenox] 40 mg SUBCUT DAILY Nicotine [Habitrol] 21 mg TRDERM DAILY 04/01/21 09:23 guaiFENesin [Mucinex] 600 mg PO TID 04/01/21 12:37 Renew/Continue Urinary Catheter [OM.PC] Routine 04/01/21 14:00 cefTRIAXone [Rocephin] 2 gm Sodium Chloride 0.9% [Normal Saline AdvBag] 100 ml IV Q24H 04/02/21 05:11 C-REACTIVE PROTEIN [CHEM] AM CBC WITH AUTO DIFF [HEME] AM CMP [COMPREHENSIVE METABOLIC PN,CMP] [CHEM] AM MAGNESIUM [CHEM] AM 04/02/21 09:00 Remove Patch 1 ea TRDERM DAILY 04/03/21 05:11 C-REACTIVE PROTEIN [CHEM] AM CBC WITH AUTO DIFF [HEME] AM CMP [COMPREHENSIVE METABOLIC PN,CMP] [CHEM] AM MAGNESIUM [CHEM] AM 04/04/21 05:11 C-REACTIVE PROTEIN [CHEM] AM CBC WITH AUTO DIFF [HEME] AM CMP [COMPREHENSIVE METABOLIC PN,CMP] [CHEM] AM MAGNESIUM [CHEM] AM - Plan Plan:: 56-year-old female with no prior medical history brought to emergency department in respiratory failure. March 31, 2021 Acute respiratory failure secondary to hypercapnia and hypoxemia Respiratory acidosis Likely severe COPD exacerbation Tobaccoism/30+-pack-year history * Patient with 8 days of symptoms and reported FiO2 of 50% the night prior to arrival in the emergency department * Severe hypercapnia with respiratory acidosis on arrival to the emergency department * White count 24,000, CRP 35 * CT of the chest consistent with a bronchitis/bronchiolitis * Negative influenza and Covid in the emergency department. * Started on BiPAP in the emergency department * She likely has underlying heart and lung disease based on history. Decompensated CHF Elevated troponin with likely type II SD * Unknown if there is underlying heart disease * Given a total of 80 mg of Lasix in the emergency department. * Troponin 0 0.829 * proBNP 14,900 * Elevated LFTs likely secondary to heart failure with liver congestion. Elevated LFTs Alcohol abuse * Known history of heavy alcohol use * AST 970, ALT 488, alkaline phosphatase 135 * Last alcohol 8 days ago * No history of withdrawal symptoms April 01, 2021 56-year-old female with likely COPD admitted secondary to acute respiratory failure from hypercapnia hypoxemia. CT of the chest demonstrated bronchitis/bronchiolitis with no focal infiltrate on the CT of the chest. She is being treated with Rocephin and doxycycline. She continues on Solu-Medrol 60 mg every 6 hours and albuterol/Atrovent nebulizers as needed. Furosemide drip was held overnight and this morning she was given 60 mg of IV furosemide. White count did increase to 29.2 and CRP decreased slightly to 32.2. Hepatic enzymes: AST decreased to 456 while ALT increased to 525. Alk phos is stable at 130. Anion gap Normal at 8.5. Creatinine is stable at 1.1 with an estimated GFR of 51. BUN is up to 44. Respiratory panel was negative for all common viruses. Procalcitonin was 0.76. No signs of alcohol withdrawal. Plan * Admit to ICU * Titrate BiPAP to improve PCO2 * Blood gases as needed * Solu-Medrol 60 mg every 6 hours * Lasix 60 mg IV this morning and then repeat every 8 hours * Continue Rocephin and doxycycline at this time * Albuterol and atropine bromide as needed * Respiratory therapist consulted * Nicotine patch * CBC, CMP, mag, CRP in the morning * Strict I's and O's and daily weights * May consider imaging of the abdomen secondary to elevated LFTs when more stable. BiPAP is causing some air into the stomach and small intestine which will likely make imaging, especially ultrasound, less accurate. * Echocardiogram today VTE prophylaxis with Lovenox CODE STATUS: Full code
[2021-04-01 13:43] LABS: BORDETELLA PARAPERT IS1001 Not Detected (Not Detected)
[2021-04-01] MEDS: cefTRIAXone 2 GM in Sodium Chloride 0.9% 100 ML IV SCH (14:04)
[2021-04-01] MEDS: Furosemide 40 MG/4 ML VIAL IVPUSH SCH (18:12)
[2021-04-02] MEDS: Furosemide 40 MG/4 ML VIAL IVPUSH SCH (00:42)
[2021-04-02] MEDS: Albuterol/Ipratropium 3.0-0.5 MG/3 ML Neb Soln NEB PRN ×4 (00:59→20:26)
[2021-04-02] MEDS: methylPREDNISolone Sodium Succinate 40 MG/1 ML SDV IVPUSH SCH ×4 (02:14→20:57)
[2021-04-02] MEDS: Doxycycline 100 MG in Sodium Chloride 0.9% 100 ML IV SCH ×2 (03:59→16:10)
[2021-04-02] MEDS: Nicotine 21 MG/24 Hr Patch TRDERM SCH (08:20)
[2021-04-02] MEDS: Enoxaparin 40 MG/0.4 ML Syringe SUBCUT SCH (08:20)
[2021-04-02] MEDS: Remove AND REPLACE NICOTINE Patch TRDERM SCH (08:21)
[2021-04-02] MEDS: guaiFENesin 600 MG Tab.ER PO SCH ×3 (08:21→20:58)
[2021-04-02] MEDS ORDERED: Furosemide 40 MG/4 ML VIAL IVPUSH ONE (10:41)
--- NOTE | 2021-04-02 12:42 | PCM.PN ---
- General Info Date of Service: 04/02/21 Admission Dx/Problem (Free Text): Admission Diagnosis/Problem Admission Diagnosis/Problem Pneumonia Subjective Update: Barbara continues to improve. She was on nasal cannula this morning and blood gases showed no significant change in her PCO2 of 70 though this is an improvement since she was on nasal cannula not BiPAP. pH has also improved. pH is now 7.33. She is very talkative but does state that she feels fatigued. Functional Status: Reports: Pain Controlled - Review of Systems General: Reports: No Symptoms, Fatigue HEENT: Reports: No Symptoms Pulmonary: Reports: Shortness of Breath, Cough Cardiovascular: Reports: No Symptoms Gastrointestinal: Reports: No Symptoms Musculoskeletal: Reports: No Symptoms Neurological: Reports: No Symptoms Psychiatric: Reports: No Symptoms - Patient Data Vitals - Most Recent: Last Vital Signs Temp 97.1 F 04/02/21 04:00 Pulse 87 04/01/21 18:00 Resp 20 04/02/21 02:00 BP 115/71 04/02/21 04:00 Pulse Ox 96 04/02/21 07:37 Weight - Most Recent: 168 lb I&O - Last 24 Hours: Intake & Output 04/01/21 04/02/21 04/02/21 22:59 06:59 14:59 Intake Total 2200 100 655 Output Total 790 350 200 Balance 1410 -250 455 Lab Results Last 24 Hours: Laboratory Results - last 24 hr 03/31/21 03/31/21 04/01/21 Range/Units 09:30 15:06 15:53 WBC (3.98-10.04) K/mm3 RBC (3.98-5.22) M/mm3 Hgb (11.2-15.7) gm/dl Hct (34.1-44.9) % MCV (79.4-94.8) fl MCH (25.6-32.2) pg MCHC (32.2-35.5) g/dl RDW Std Deviation (36.4-46.3) fL Plt Count (182-369) K/mm3 MPV (9.4-12.3) fl Neut % (Auto) (34.0-71.1) % Lymph % (Auto) (19.3-51.7) % [place] % (Auto) (4.7-12.5) % Eos % (Auto) (0.7-5.8) Baso % (Auto) (0.1-1.2) % Neut # (Auto) (1.56-6.13) K/mm3 Lymph # (Auto) (1.18-3.74) K/mm3 [place] # (Auto) (0.24-0.36) K/mm3 Eos # (Auto) (0.04-0.36) K/mm3 Baso # (Auto) (0.01-0.08) K/mm3 Manual Slide Review Puncture Site Lt radial ABG pH 7.32 L (7.35-7.45) ABG pCO2 70.4 H* (35.0-45.0) mmHg ABG pO2 84.0 (80.0-100.0) mmHg ABG HCO3 35.1 H (22.0-26.0) meq/L ABG O2 Saturation 95.5 L (96.0-97.0) % ABG Base Excess 6.9 H (-2-2.0) Jairo Test Positive A-a Gradient 113 mmHg O2 Delivery Device Bipap 20/5 Oxygen Flow Rate FiO2 40.00 (21.00-100.00) % Sodium (136-145) mEq/L Potassium (3.5-5.1) mEq/L Chloride (98-107) mEq/L Carbon Dioxide (21-32) mEq/L Anion Gap (5-15) BUN (7-18) mg/dL Creatinine (0.55-1.02) mg/dL Est Cr Clr Drug Dosing mL/min Estimated GFR (MDRD) (>60) mL/min BUN/Creatinine Ratio (14-18) Glucose (70-99) mg/dL Calcium (8.5-10.1) mg/dL Magnesium (1.8-2.4) mg/dL Total Bilirubin (0.2-1.0) mg/dL AST (15-37) U/L ALT (14-59) U/L Alkaline Phosphatase (46-116) U/L C-Reactive Protein (<1.0) mg/dL Total Protein (6.4-8.2) g/dl Albumin (3.4-5.0) g/dl Globulin gm/dL Albumin/Globulin Ratio (1-2) Procalcitonin 0.76 H ng/mL Adenovirus (PCR) Not detected (Not Detected) B. pertussis DNA (PCR) Not detected (Not Detected) B.parapertussis DNA PCR Not detected (Not Detected) C. pneumoniae DNA (PCR) Not detected (Not Detected) Coronavirus OC43 (PCR) Not detected (Not Detected) Coronavirus HKU1 (PCR) Not detected (Not Detected) Coronavirus 229E (PCR) Not detected (Not Detected) Coronavirus NL63 (PCR) Not detected (Not Detected) Human Metapneumovir PCR Not detected (Not Detected) Influenza A (RT-PCR) Not detected (Not Detected) Influenza B (RT-PCR) Not detected (Not Detected) M. pneumoniae (PCR) Not detected (Not Detected) Parainfluenza 1 (PCR) Not detected (Not Detected) Parainfluenza 2 (PCR) Not detected (Not Detected) Parainfluenza 3 (PCR) Not detected (Not Detected) Parainfluenza 4 (PCR) Not detected (Not Detected) RSV (PCR) Not detected (Not Detected) Entero/Rhino (PCR) Not detected (Not Detected) SARS-CoV-2 (PCR) Not detected (Not Detected) 04/02/21 04/02/21 04/02/21 Range/Units 05:56 05:56 08:26 WBC 22.78 H (3.98-10.04) K/mm3 RBC 4.61 (3.98-5.22) M/mm3 Hgb 13.6 (11.2-15.7) gm/dl Hct 44.4 (34.1-44.9) % MCV 96.3 H (79.4-94.8) fl MCH 29.5 (25.6-32.2) pg MCHC 30.6 L (32.2-35.5) g/dl RDW Std Deviation 47.9 H (36.4-46.3) fL Plt Count 394 H (182-369) K/mm3 MPV 10.9 (9.4-12.3) fl Neut % (Auto) 84.0 H (34.0-71.1) % Lymph % (Auto) 7.9 L (19.3-51.7) % [place] % (Auto) 3.7 L (4.7-12.5) % Eos % (Auto) 0 L (0.7-5.8) Baso % (Auto) 0.4 (0.1-1.2) % Neut # (Auto) 19.12 H (1.56-6.13) K/mm3 Lymph # (Auto) 1.81 (1.18-3.74) K/mm3 [place] # (Auto) 0.85 H (0.24-0.36) K/mm3 Eos # (Auto) 0.00 L (0.04-0.36) K/mm3 Baso # (Auto) 0.09 H (0.01-0.08) K/mm3 Manual Slide Review Abnormal smear Puncture Site Lt radial ABG pH 7.33 L (7.35-7.45) ABG pCO2 69.9 H (35.0-45.0) mmHg ABG pO2 57.0 L (80.0-100.0) mmHg ABG HCO3 35.8 H (22.0-26.0) meq/L ABG O2 Saturation 83.6 L (96.0-97.0) % ABG Base Excess 7.5 H (-2-2.0) Jairo Test Positive A-a Gradient 112 mmHg O2 Delivery Device Nasal cannula Oxygen Flow Rate 4.0 FiO2 36.00 (21.00-100.00) % Sodium 139 (136-145) mEq/L Potassium 4.0 (3.5-5.1) mEq/L Chloride 96 L (98-107) mEq/L Carbon Dioxide 41 H* (21-32) mEq/L Anion Gap 6.0 (5-15) BUN 47 H (7-18) mg/dL Creatinine 1.0 (0.55-1.02) mg/dL Est Cr Clr Drug Dosing 64.87 mL/min Estimated GFR (MDRD) 57 (>60) mL/min BUN/Creatinine Ratio 47.0 H (14-18) Glucose 133 H (70-99) mg/dL Calcium 9.6 (8.5-10.1) mg/dL Magnesium 3.0 H (1.8-2.4) mg/dL Total Bilirubin 0.3 (0.2-1.0) mg/dL AST 103 H (15-37) U/L ALT 342 H (14-59) U/L Alkaline Phosphatase 111 (46-116) U/L C-Reactive Protein 15.3 H* (<1.0) mg/dL Total Protein 7.5 (6.4-8.2) g/dl Albumin 2.7 L (3.4-5.0) g/dl Globulin 4.8 gm/dL Albumin/Globulin Ratio 0.6 L (1-2) Procalcitonin ng/mL Adenovirus (PCR) (Not Detected) B. pertussis DNA (PCR) (Not Detected) B.parapertussis DNA PCR (Not Detected) C. pneumoniae DNA (PCR) (Not Detected) Coronavirus OC43 (PCR) (Not Detected) Coronavirus HKU1 (PCR) (Not Detected) Coronavirus 229E (PCR) (Not Detected) Coronavirus NL63 (PCR) (Not Detected) Human Metapneumovir PCR (Not Detected) Influenza A (RT-PCR) (Not Detected) Influenza B (RT-PCR) (Not Detected) M. pneumoniae (PCR) (Not Detected) Parainfluenza 1 (PCR) (Not Detected) Parainfluenza 2 (PCR) (Not Detected) Parainfluenza 3 (PCR) (Not Detected) Parainfluenza 4 (PCR) (Not Detected) RSV (PCR) (Not Detected) Entero/Rhino (PCR) (Not Detected) SARS-CoV-2 (PCR) (Not Detected) Philipp Results Last 24 Hours: Microbiology 03/31/21 11:13 Blood Culture - Preliminary Blood - Venous - Lab Draw 03/31/21 11:07 Blood Culture - Preliminary Blood - Venous Med Orders - Current: Current Medications Acetaminophen (Acetaminophen 325 Mg Tab) 650 mg PO Q4H PRN PRN Reason: Pain (Mild 1-3)/fever Albuterol (Albuterol 0.083% 2.5 Mg/3 Ml Neb Soln) 2.5 mg NEB Q2H PRN PRN Reason: Shortness Of Breath/wheezing Last Admin: 04/01/21 07:49 Dose: 2.5 mg Documented by: Albuterol/Ipratropium (Albuterol/Ipratropium 3.0-0.5 Mg/3 Ml Neb Soln) 3 ml NEB Q4H PRN PRN Reason: Shortness Of Breath/wheezing Last Admin: 04/02/21 07:34 Dose: 3 ml Documented by: Enoxaparin Sodium (Enoxaparin 40 Mg/0.4 Ml Syringe) 40 mg SUBCUT DAILY [facility] Last Admin: 04/02/21 08:20 Dose: 40 mg Documented by: Guaifenesin (Guaifenesin 600 Mg Tab.Er) 600 mg PO TID [facility] Last Admin: 04/02/21 08:21 Dose: 600 mg Documented by: Ceftriaxone Sodium 2 gm/ (Sodium Chloride) 100 mls @ 200 mls/hr IV Q24H [facility] Last Admin: 04/01/21 14:04 Dose: 200 mls/hr Documented by: Doxycycline Hyclate 100 mg/ (Sodium Chloride) 100 mls @ 100 mls/hr IV Q12H [facility] Last Admin: 04/02/21 03:59 Dose: 100 mls/hr Documented by: Methylprednisolone Sodium Succinate (Methylprednisolone Sodium Succinate 40 Mg/1 Ml Sdv) 60 mg IVPUSH Q6H [facility] Last Admin: 04/02/21 08:21 Dose: 60 mg Documented by: Miscellaneous Information (Remove And Replace Nicotine Patch) 1 ea TRDERM DAILY [facility] Last Admin: 04/02/21 08:21 Dose: 1 ea Documented by: Nicotine (Nicotine 21 Mg/24 Hr Patch) 21 mg TRDERM DAILY [facility] Last Admin: 04/02/21 08:20 Dose: 21 mg Documented by: Ondansetron HCl (Ondansetron 4 Mg/2 Ml Sdv) 4 mg IV Q6H PRN PRN Reason: Nausea/Vomiting Sodium Chloride (Sodium Chloride 0.9% 10 Ml Syringe) 10 ml FLUSH ASDIRECTED PRN PRN Reason: Keep Vein Open Last Admin: 03/31/21 10:28 Dose: 10 ml Documented by: Discontinued Medications Albuterol (Albuterol 0.083% 2.5 Mg/3 Ml Neb Soln) 2.5 mg NEB ONETIME ONE Stop: 03/31/21 09:51 Last Admin: 03/31/21 10:00 Dose: 2.5 mg Documented by: Aspirin (Aspirin 81 Mg Tab.Chew) 324 mg PO ONETIME ONE Stop: 03/31/21 10:20 Last Admin: 03/31/21 10:27 Dose: 324 mg Documented by: Furosemide (Furosemide 40 Mg/4 Ml Vial) 40 mg IVPUSH NOW ONE Stop: 03/31/21 11:02 Last Admin: 03/31/21 11:11 Dose: 40 mg Documented by: Furosemide (Furosemide 40 Mg/4 Ml Vial) 40 mg IVPUSH NOW ONE Stop: 03/31/21 12:41 Last Admin: 03/31/21 12:48 Dose: 40 mg Documented by: Furosemide (Furosemide 40 Mg/4 Ml Vial) 60 mg IVPUSH NOW ONE Stop: 04/01/21 10:18 Last Admin: 04/01/21 10:57 Dose: 60 mg Documented by: Furosemide (Furosemide 40 Mg/4 Ml Vial) 40 mg IVPUSH Q6H [facility] Stop: 04/02/21 00:01 Last Admin: 04/02/21 00:42 Dose: 40 mg Documented by: Furosemide (Furosemide 40 Mg/4 Ml Vial) 40 mg IVPUSH NOW ONE Stop: 04/02/21 10:42 Last Admin: 04/02/21 10:57 Dose: 40 mg Documented by: Sodium Chloride (Normal Saline) 100 mls @ 75 mls/hr IV ASDIRECTED [facility]Y Last Admin: 03/31/21 10:56 Dose: 75 mls/hr Documented by: Ceftriaxone Sodium 1 gm/ (Sodium Chloride) 100 mls @ 200 mls/hr IV ONETIME ONE Stop: 03/31/21 11:21 Last Admin: 03/31/21 11:14 Dose: 200 mls/hr Documented by: Sodium Chloride (Normal Saline) Confirm Administered Dose 1,000 mls @ as directed .ROUTE .STK-MED ONE Stop: 03/31/21 10:59 Last Admin: 03/31/21 11:12 Dose: Not Given Documented by: Ceftriaxone Sodium 1 gm/ (Sodium Chloride) 100 mls @ 200 mls/hr IV ONETIME ONE Stop: 03/31/21 14:59 Last Admin: 03/31/21 14:41 Dose: 200 mls/hr Documented by: Furosemide 100 mg/ Sodium (Chloride) 100 mls @ 10 mls/hr IV TITRATE ROSY; P rotocol Last Infusion: 04/01/21 03:30 Dose: 0 mls/hr Documented by: Iopamidol (Iopamidol 755 Mg/Ml 100 Ml Bottle) 100 ml IVPUSH ONETIME ONE Stop: 03/31/21 10:44 Last Admin: 03/31/21 10:56 Dose: 100 ml Documented by: Methylprednisolone Sodium Succinate (Methylprednisolone Sodium Succinate 125 Mg/2 Ml Sdv) 125 mg IVPUSH ONETIME ONE Stop: 03/31/21 14:31 Last Admin: 03/31/21 14:44 Dose: 125 mg Documented by: Nicotine (Nicotine 21 Mg/24 Hr Patch) 21 mg TRDERM ONETIME ONE Stop: 03/31/21 16:16 Last Admin: 03/31/21 16:44 Dose: 21 mg Documented by: Sodium Chloride (Sodium Chloride 0.9% 10 Ml Syringe) 10 ml FLUSH ONETIME PRN PRN Reason: IV FLUSH Last Admin: 03/31/21 10:56 Dose: 10 ml Documented by: - Exam Quality Assessment: Supplemental Oxygen Urinary Catheter Total Time: 1Days 18Hours General: Alert, Oriented HEENT: Pupils Equal, Mucous Membr. Moist/[place] Neck: Supple Lungs: Crackles, Rhonchi, Wheezing. No: Normal Respiratory Effort (Increased respiratory rate) Cardiovascular: Regular Rate, Regular Rhythm GI/Abdominal Exam: Normal Bowel Sounds, Soft, Non-Tender, No Distention Extremities: Normal Inspection, Normal Range of Motion, Non-Tender, No Pedal Edema, Normal Capillary Refill Skin: Warm, Dry, Intact Neurological: No New Focal Deficit Psy/Mental Status: Alert, Normal Affect, Normal Mood - Patient Data Lab Results Last 24 hrs: Laboratory Results - last 24 hr 03/31/21 03/31/21 04/01/21 Range/Units 09:30 15:06 15:53 WBC (3.98-10.04) K/mm3 RBC (3.98-5.22) M/mm3 Hgb (11.2-15.7) gm/dl Hct (34.1-44.9) % MCV (79.4-94.8) fl MCH (25.6-32.2) pg MCHC (32.2-35.5) g/dl RDW Std Deviation (36.4-46.3) fL Plt Count (182-369) K/mm3 MPV (9.4-12.3) fl Neut % (Auto) (34.0-71.1) % Lymph % (Auto) (19.3-51.7) % [place] % (Auto) (4.7-12.5) % Eos % (Auto) (0.7-5.8) Baso % (Auto) (0.1-1.2) % Neut # (Auto) (1.56-6.13) K/mm3 Lymph # (Auto) (1.18-3.74) K/mm3 [place] # (Auto) (0.24-0.36) K/mm3 Eos # (Auto) (0.04-0.36) K/mm3 Baso # (Auto) (0.01-0.08) K/mm3 Manual Slide Review Puncture Site Lt radial ABG pH 7.32 L (7.35-7.45) ABG pCO2 70.4 H* (35.0-45.0) mmHg ABG pO2 84.0 (80.0-100.0) mmHg ABG HCO3 35.1 H (22.0-26.0) meq/L ABG O2 Saturation 95.5 L (96.0-97.0) % ABG Base Excess 6.9 H (-2-2.0) Jairo Test Positive A-a Gradient 113 mmHg O2 Delivery Device Bipap 20/5 Oxygen Flow Rate FiO2 40.00 (21.00-100.00) % Sodium (136-145) mEq/L Potassium (3.5-5.1) mEq/L Chloride (98-107) mEq/L Carbon Dioxide (21-32) mEq/L Anion Gap (5-15) BUN (7-18) mg/dL Creatinine (0.55-1.02) mg/dL Est Cr Clr Drug Dosing mL/min Estimated GFR (MDRD) (>60) mL/min BUN/Creatinine Ratio (14-18) Glucose (70-99) mg/dL Calcium (8.5-10.1) mg/dL Magnesium (1.8-2.4) mg/dL Total Bilirubin (0.2-1.0) mg/dL AST (15-37) U/L ALT (14-59) U/L Alkaline Phosphatase (46-116) U/L C-Reactive Protein (<1.0) mg/dL Total Protein (6.4-8.2) g/dl Albumin (3.4-5.0) g/dl Globulin gm/dL Albumin/Globulin Ratio (1-2) Procalcitonin 0.76 H ng/mL Adenovirus (PCR) Not detected (Not Detected) B. pertussis DNA (PCR) Not detected (Not Detected) B.parapertussis DNA PCR Not detected (Not Detected) C. pneumoniae DNA (PCR) Not detected (Not Detected) Coronavirus OC43 (PCR) Not detected (Not Detected) Coronavirus HKU1 (PCR) Not detected (Not Detected) Coronavirus 229E (PCR) Not detected (Not Detected) Coronavirus NL63 (PCR) Not detected (Not Detected) Human Metapneumovir PCR Not detected (Not Detected) Influenza A (RT-PCR) Not detected (Not Detected) Influenza B (RT-PCR) Not detected (Not Detected) M. pneumoniae (PCR) Not detected (Not Detected) Parainfluenza 1 (PCR) Not detected (Not Detected) Parainfluenza 2 (PCR) Not detected (Not Detected) Parainfluenza 3 (PCR) Not detected (Not Detected) Parainfluenza 4 (PCR) Not detected (Not Detected) RSV (PCR) Not detected (Not Detected) Entero/Rhino (PCR) Not detected (Not Detected) SARS-CoV-2 (PCR) Not detected (Not Detected) 04/02/21 04/02/21 04/02/21 Range/Units 05:56 05:56 08:26 WBC 22.78 H (3.98-10.04) K/mm3 RBC 4.61 (3.98-5.22) M/mm3 Hgb 13.6 (11.2-15.7) gm/dl Hct 44.4 (34.1-44.9) % MCV 96.3 H (79.4-94.8) fl MCH 29.5 (25.6-32.2) pg MCHC 30.6 L (32.2-35.5) g/dl RDW Std Deviation 47.9 H (36.4-46.3) fL Plt Count 394 H (182-369) K/mm3 MPV 10.9 (9.4-12.3) fl Neut % (Auto) 84.0 H (34.0-71.1) % Lymph % (Auto) 7.9 L (19.3-51.7) % [place] % (Auto) 3.7 L (4.7-12.5) % Eos % (Auto) 0 L (0.7-5.8) Baso % (Auto) 0.4 (0.1-1.2) % Neut # (Auto) 19.12 H (1.56-6.13) K/mm3 Lymph # (Auto) 1.81 (1.18-3.74) K/mm3 [place] # (Auto) 0.85 H (0.24-0.36) K/mm3 Eos # (Auto) 0.00 L (0.04-0.36) K/mm3 Baso # (Auto) 0.09 H (0.01-0.08) K/mm3 Manual Slide Review Abnormal smear Puncture Site Lt radial ABG pH 7.33 L (7.35-7.45) ABG pCO2 69.9 H (35.0-45.0) mmHg ABG pO2 57.0 L (80.0-100.0) mmHg ABG HCO3 35.8 H (22.0-26.0) meq/L ABG O2 Saturation 83.6 L (96.0-97.0) % ABG Base Excess 7.5 H (-2-2.0) Jairo Test Positive A-a Gradient 112 mmHg O2 Delivery Device Nasal cannula Oxygen Flow Rate 4.0 FiO2 36.00 (21.00-100.00) % Sodium 139 (136-145) mEq/L Potassium 4.0 (3.5-5.1) mEq/L Chloride 96 L (98-107) mEq/L Carbon Dioxide 41 H* (21-32) mEq/L Anion Gap 6.0 (5-15) BUN 47 H (7-18) mg/dL Creatinine 1.0 (0.55-1.02) mg/dL Est Cr Clr Drug Dosing 64.87 mL/min Estimated GFR (MDRD) 57 (>60) mL/min BUN/Creatinine Ratio 47.0 H (14-18) Glucose 133 H (70-99) mg/dL Calcium 9.6 (8.5-10.1) mg/dL Magnesium 3.0 H (1.8-2.4) mg/dL Total Bilirubin 0.3 (0.2-1.0) mg/dL AST 103 H (15-37) U/L ALT 342 H (14-59) U/L Alkaline Phosphatase 111 (46-116) U/L C-Reactive Protein 15.3 H* (<1.0) mg/dL Total Protein 7.5 (6.4-8.2) g/dl Albumin 2.7 L (3.4-5.0) g/dl Globulin 4.8 gm/dL Albumin/Globulin Ratio 0.6 L (1-2) Procalcitonin ng/mL Adenovirus (PCR) (Not Detected) B. pertussis DNA (PCR) (Not Detected) B.parapertussis DNA PCR (Not Detected) C. pneumoniae DNA (PCR) (Not Detected) Coronavirus OC43 (PCR) (Not Detected) Coronavirus HKU1 (PCR) (Not Detected) Coronavirus 229E (PCR) (Not Detected) Coronavirus NL63 (PCR) (Not Detected) Human Metapneumovir PCR (Not Detected) Influenza A (RT-PCR) (Not Detected) Influenza B (RT-PCR) (Not Detected) M. pneumoniae (PCR) (Not Detected) Parainfluenza 1 (PCR) (Not Detected) Parainfluenza 2 (PCR) (Not Detected) Parainfluenza 3 (PCR) (Not Detected) Parainfluenza 4 (PCR) (Not Detected) RSV (PCR) (Not Detected) Entero/Rhino (PCR) (Not Detected) SARS-CoV-2 (PCR) (Not Detected) Result Diagrams: 04/02/21 05:56 04/02/21 05:56 Philipp Results Last 24 hrs: Microbiology 03/31/21 11:13 Blood Culture - Preliminary Blood - Venous - Lab Draw 03/31/21 11:07 Blood Culture - Preliminary Blood - Venous Sepsis Event Note - Evaluation Sepsis Screening Result: Severe Sepsis Risk - Focused Exam Vital Signs: Vital Signs Temp Resp BP Pulse Ox Pulse Ox Pulse Ox 04/02/21 07:37 96 04/02/21 05:05 93 L 04/02/21 04:00 97.1 F 115/71 93 L 04/02/21 02:00 20 113/73 04/02/21 00:59 90 L - Problem List & Annotations (1) Respiratory failure with hypoxia and hypercapnia SNOMED Code(s): 18511872 Code(s): J96.91 - RESPIRATORY FAILURE, UNSPECIFIED WITH HYPOXIA; J96.92 - RESPIRATORY FAILURE, UNSPECIFIED WITH HYPERCAPNIA Status: Acute Current Visit: Yes (2) Reactive airway disease SNOMED Code(s): 972988008981 Code(s): J45.909 - UNSPECIFIED ASTHMA, UNCOMPLICATED Status: Acute Current Visit: Yes (3) Congestive heart failure SNOMED Code(s): 35893565 Code(s): I50.9 - HEART FAILURE, UNSPECIFIED Status: Acute Current Visit: Yes Qualifiers: Heart failure type: unspecified Heart failure chronicity: unspecified Qualified Code(s): I50.9 - Heart failure, unspecified (4) Elevated troponin SNOMED Code(s): 297076076, 867198248, 395969238 Code(s): R77.8 - OTHER SPECIFIED ABNORMALITIES OF PLASMA PROTEINS Status: Acute Current Visit: Yes - Problem List Review Problem List Initiated/Reviewed/Updated: Yes - My Orders Last 24 Hours: My Active Orders 04/01/21 12:37 Renew/Continue Urinary Catheter [OM.PC] Routine 04/01/21 14:00 cefTRIAXone [Rocephin] 2 gm Sodium Chloride 0.9% [Normal Saline AdvBag] 100 ml IV Q24H 04/02/21 07:37 Chest Physiotherapy [RT Chest Physiotherapy] [RC] ASDIRECTED Incentive Spirometry [RT Incentive Spirometry] [RC] ASDIRECTED 04/02/21 09:00 Remove Patch 1 ea TRDERM DAILY 04/03/21 05:11 C-REACTIVE PROTEIN [CHEM] AM CBC WITH AUTO DIFF [HEME] AM CMP [COMPREHENSIVE METABOLIC PN,CMP] [CHEM] AM MAGNESIUM [CHEM] AM 04/04/21 05:11 C-REACTIVE PROTEIN [CHEM] AM CBC WITH AUTO DIFF [HEME] AM CMP [COMPREHENSIVE METABOLIC PN,CMP] [CHEM] AM MAGNESIUM [CHEM] AM - Plan Plan:: 56-year-old female with no prior medical history brought to emergency department in respiratory failure. March 31, 2021 Acute respiratory failure secondary to hypercapnia and hypoxemia Respiratory acidosis Likely severe COPD exacerbation Tobaccoism/30+-pack-year history * Patient with 8 days of symptoms and reported FiO2 of 50% the night prior to arrival in the emergency department * Severe hypercapnia with respiratory acidosis on arrival to the emergency department * White count 24,000, CRP 35 * CT of the chest consistent with a bronchitis/bronchiolitis * Negative influenza and Covid in the emergency department. * Started on BiPAP in the emergency department * She likely has underlying heart and lung disease based on history. Decompensated CHF Elevated troponin with likely type II OR * Unknown if there is underlying heart disease * Given a total of 80 mg of Lasix in the emergency department. * Troponin 0 0.829 * proBNP 14,900 * Elevated LFTs likely secondary to heart failure with liver congestion. Elevated LFTs Alcohol abuse * Known history of heavy alcohol use * AST 970, ALT 488, alkaline phosphatase 135 * Last alcohol 8 days ago * No history of withdrawal symptoms April 01, 2021 56-year-old female with likely COPD admitted secondary to acute respiratory fa ilure from hypercapnia hypoxemia. CT of the chest demonstrated bronchitis/bronchiolitis with no focal infiltrate on the CT of the chest. She is being treated with Rocephin and doxycycline. She continues on Solu-Medrol 60 mg every 6 hours and albuterol/Atrovent nebulizers as needed. Furosemide d rip was held overnight and this morning she was given 60 mg of IV furosemide. White count did increase to 29.2 and CRP decreased slightly to 32.2. Hepatic enzymes: AST decreased to 456 while ALT increased to 525. Alk phos is stable at 130. Anion gap Normal at 8.5. Creatinine is stable at 1.1 with an estimated GFR of 51. BUN is up to 44. Respiratory panel was negative for all common viruses. Procalcitonin was 0.76. No signs of alcohol withdrawal. April 02, 2021 56-year-old female with likely COPD admitted with respiratory failure, pneumonia, decompensated CHF. Patient has continued to improve and currently is on nasal cannula at 6 L. Her ABG shows a pH of 7.33, PCO2 of 70, PO2 of 57, and a bicarb of 36. Patient was encouraged to use BiPAP when sleeping and taking naps. She should also use it as much as possible between meals. Patient continues without any signs of alcohol withdrawal. Her liver enzymes are AST 103, ALT 342, alkaline phosphatase 111 which are all improved. CRP is down to 15.3 and white count is down to 22.8. Overall she is improving. She may have some intravascular volume contraction with an elevated bicarb and increasing BUN to creatinine ratio. Kidney function is stable with estimated GFR of 57 and creatinine of 1.0. She will get furosemide 40 mg IV x1 today. Recheck labs tomorrow morning. Echocardiogram: 1. Left regular ejection fraction, by visual estimation, is 55 to 60%. 2. Normal left-ventricular systolic function. 3. Impaired relaxation grade 1 pattern of LV diastolic filling. 4. Mild concentric left ventricular hypertrophy. 5. Normal right ventricular size, wall thickness, and systolic function. 6. Trace mitral valve regurgitation. 7. Mild tricuspid valve regurgitation. 8. The right ventricular systolic pressure is mild to moderately elevated at 37.8 mmHg. 9. The inferior vena cava is dilated with respiratory size variation greater than 50%. 5. No regional wall motion abnormalities. Plan * Admit to ICU * Titrate BiPAP to improve PCO2 * Blood gases as needed * Solu-Medrol 60 mg every 8 hours * Lasix 40 mg IV X1 * Continue Rocephin and doxycycline at this time * Albuterol and atropine bromide as needed * Respiratory therapist consulted * Nicotine patch * CBC, CMP, mag, CRP in the morning * Strict I's and O's and daily weights * May consider imaging of the abdomen secondary to elevated LFTs when more stable. BiPAP is causing some air into the stomach and small intestine which will likely make imaging, especially ultrasound, less accurate. VTE prophylaxis with Lovenox CODE STATUS: Full code
[2021-04-02] MEDS: cefTRIAXone 2 GM in Sodium Chloride 0.9% 100 ML IV SCH (15:27)
[2021-04-03] MEDS: methylPREDNISolone Sodium Succinate 40 MG/1 ML SDV IVPUSH SCH ×3 (02:07→16:07)
[2021-04-03] MEDS: Doxycycline 100 MG in Sodium Chloride 0.9% 100 ML IV SCH ×2 (04:17→16:07)
[2021-04-03] MEDS: Albuterol/Ipratropium 3.0-0.5 MG/3 ML Neb Soln NEB PRN ×3 (05:56→16:37)
[2021-04-03] MEDS: Nicotine 21 MG/24 Hr Patch TRDERM SCH (08:20)
[2021-04-03] MEDS: Enoxaparin 40 MG/0.4 ML Syringe SUBCUT SCH (08:21)
[2021-04-03] MEDS: Remove AND REPLACE NICOTINE Patch TRDERM SCH (08:21)
[2021-04-03] MEDS: guaiFENesin 600 MG Tab.ER PO SCH ×3 (08:21→21:19)
[2021-04-03] MEDS ORDERED: Furosemide 20 MG/2 ML VIAL IVPUSH ONE (10:42)
--- NOTE | 2021-04-03 10:42 | PCM.PN ---
- General Info Date of Service: 04/03/21 Admission Dx/Problem (Free Text): Admission Diagnosis/Problem Admission Diagnosis/Problem Pneumonia Subjective Update: Marilee is feeling much better. She was on BiPAP for most of the night but has been off this morning. She is currently on 3 L and PCO2 has decreased to 60. She is alert and awake. Functional Status: Reports: Pain Controlled - Review of Systems General: Reports: No Symptoms HEENT: Reports: No Symptoms Pulmonary: Reports: Shortness of Breath, Cough Cardiovascular: Reports: No Symptoms Gastrointestinal: Reports: No Symptoms Musculoskeletal: Reports: No Symptoms - Patient Data Vitals - Most Recent: Last Vital Signs Temp 97.5 F 04/03/21 06:00 Pulse 73 04/03/21 02:00 Resp 18 04/03/21 06:00 BP 130/85 04/03/21 04:00 Pulse Ox 93 L 04/03/21 09:28 Weight - Most Recent: 168 lb I&O - Last 24 Hours: Intake & Output 04/02/21 04/03/21 04/03/21 22:59 06:59 14:59 Intake Total 690 340 Output Total 575 600 Balance 115 -260 Lab Results Last 24 Hours: Laboratory Results - last 24 hr 04/03/21 04/03/21 Range/Units 06:01 06:01 WBC 15.18 H (3.98-10.04) K/mm3 RBC 4.68 (3.98-5.22) M/mm3 Hgb 13.9 (11.2-15.7) gm/dl Hct 45.0 H (34.1-44.9) % MCV 96.2 H (79.4-94.8) fl MCH 29.7 (25.6-32.2) pg MCHC 30.9 L (32.2-35.5) g/dl RDW Std Deviation 47.7 H (36.4-46.3) fL Plt Count 443 H (182-369) K/mm3 MPV 10.4 (9.4-12.3) fl Neut % (Auto) 82.5 H (34.0-71.1) % Lymph % (Auto) 9.6 L (19.3-51.7) % [place] % (Auto) 3.2 L (4.7-12.5) % Eos % (Auto) 0 L (0.7-5.8) Baso % (Auto) 0.4 (0.1-1.2) % Neut # (Auto) 12.53 H (1.56-6.13) K/mm3 Lymph # (Auto) 1.45 (1.18-3.74) K/mm3 [place] # (Auto) 0.48 H (0.24-0.36) K/mm3 Eos # (Auto) 0.00 L (0.04-0.36) K/mm3 Baso # (Auto) 0.06 (0.01-0.08) K/mm3 Manual Slide Review Abnormal smear Sodium 140 (136-145) mEq/L Potassium 4.3 (3.5-5.1) mEq/L Chloride 97 L (98-107) mEq/L Carbon Dioxide 40 H (21-32) mEq/L Anion Gap 7.3 (5-15) BUN 28 H (7-18) mg/dL Creatinine 0.9 (0.55-1.02) mg/dL Est Cr Clr Drug Dosing 73.33 mL/min Estimated GFR (MDRD) > 60 (>60) mL/min BUN/Creatinine Ratio 31.1 H (14-18) Glucose 143 H (70-99) mg/dL Calcium 9.1 (8.5-10.1) mg/dL Magnesium 2.8 H (1.8-2.4) mg/dL Total Bilirubin 0.3 (0.2-1.0) mg/dL AST 60 H (15-37) U/L ALT 253 H (14-59) U/L Alkaline Phosphatase 101 (46-116) U/L C-Reactive Protein 7.7 H* (<1.0) mg/dL Total Protein 6.5 (6.4-8.2) g/dl Albumin 2.7 L (3.4-5.0) g/dl Globulin 3.8 gm/dL Albumin/Globulin Ratio 0.7 L (1-2) Med Orders - Current: Current Medications Acetaminophen (Acetaminophen 325 Mg Tab) 650 mg PO Q4H PRN PRN Reason: Pain (Mild 1-3)/fever Albuterol (Albuterol 0.083% 2.5 Mg/3 Ml Neb Soln) 2.5 mg NEB Q2H PRN PRN Reason: Shortness Of Breath/wheezing Last Admin: 04/01/21 07:49 Dose: 2.5 mg Documented by: Albuterol/Ipratropium (Albuterol/Ipratropium 3.0-0.5 Mg/3 Ml Neb Soln) 3 ml NEB Q4H PRN PRN Reason: Shortness Of Breath/wheezing Last Admin: 04/03/21 09:26 Dose: 3 ml Documented by: Enoxaparin Sodium (Enoxaparin 40 Mg/0.4 Ml Syringe) 40 mg SUBCUT DAILY [facility] Last Admin: 04/03/21 08:21 Dose: 40 mg Documented by: Guaifenesin (Guaifenesin 600 Mg Tab.Er) 600 mg PO TID [facility] Last Admin: 04/03/21 08:21 Dose: 600 mg Documented by: Ceftriaxone Sodium 2 gm/ (Sodium Chloride) 100 mls @ 200 mls/hr IV Q24H [facility] Last Admin: 04/02/21 15:27 Dose: 200 mls/hr Documented by: Doxycycline Hyclate 100 mg/ (Sodium Chloride) 100 mls @ 100 mls/hr IV Q12H [facility] Last Admin: 04/03/21 04:17 Dose: 100 mls/hr Documented by: Methylprednisolone Sodium Succinate (Methylprednisolone Sodium Succinate 40 Mg/1 Ml Sdv) 40 mg IVPUSH Q8H [facility] Miscellaneous Information (Remove And Replace Nicotine Patch) 1 ea TRDERM DAILY [facility] Last Admin: 04/03/21 08:21 Dose: 1 ea Documented by: Nicotine (Nicotine 21 Mg/24 Hr Patch) 21 mg TRDERM DAILY [facility] Last Admin: 04/03/21 08:20 Dose: 21 mg Documented by: Ondansetron HCl (Ondansetron 4 Mg/2 Ml Sdv) 4 mg IV Q6H PRN PRN Reason: Nausea/Vomiting Sodium Chloride (Sodium Chloride 0.9% 10 Ml Syringe) 10 ml FLUSH ASDIRECTED PRN PRN Reason: Keep Vein Open Last Admin: 03/31/21 10:28 Dose: 10 ml Documented by: Discontinued Medications Albuterol (Albuterol 0.083% 2.5 Mg/3 Ml Neb Soln) 2.5 mg NEB ONETIME ONE Stop: 03/31/21 09:51 Last Admin: 03/31/21 10:00 Dose: 2.5 mg Documented by: Aspirin (Aspirin 81 Mg Tab.Chew) 324 mg PO ONETIME ONE Stop: 03/31/21 10:20 Last Admin: 03/31/21 10:27 Dose: 324 mg Documented by: Furosemide (Furosemide 40 Mg/4 Ml Vial) 40 mg IVPUSH NOW ONE Stop: 03/31/21 11:02 Last Admin: 03/31/21 11:11 Dose: 40 mg Documented by: Furosemide (Furosemide 40 Mg/4 Ml Vial) 40 mg IVPUSH NOW ONE Stop: 03/31/21 12:41 Last Admin: 03/31/21 12:48 Dose: 40 mg Documented by: Furosemide (Furosemide 40 Mg/4 Ml Vial) 60 mg IVPUSH NOW ONE Stop: 04/01/21 10:18 Last Admin: 04/01/21 10:57 Dose: 60 mg Documented by: Furosemide (Furosemide 40 Mg/4 Ml Vial) 40 mg IVPUSH Q6H [facility] Stop: 04/02/21 00:01 Last Admin: 04/02/21 00:42 Dose: 40 mg Documented by: Furosemide (Furosemide 40 Mg/4 Ml Vial) 40 mg IVPUSH NOW ONE Stop: 04/02/21 10:42 Last Admin: 04/02/21 10:57 Dose: 40 mg Documented by: Sodium Chloride (Normal Saline) 100 mls @ 75 mls/hr IV ASDIRECTED [facility] Last Admin: 03/31/21 10:56 Dose: 75 mls/hr Documented by: Ceftriaxone Sodium 1 gm/ (Sodium Chloride) 100 mls @ 200 mls/hr IV ONETIME ONE Stop: 03/31/21 11:21 Last Admin: 03/31/21 11:14 Dose: 200 mls/hr Documented by: Sodium Chloride (Normal Saline) Confirm Administered Dose 1,000 mls @ as directed .ROUTE .STK-MED ONE Stop: 03/31/21 10:59 Last Admin: 03/31/21 11:12 Dose: Not Given Documented by: Ceftriaxone Sodium 1 gm/ (Sodium Chloride) 100 mls @ 200 mls/hr IV ONETIME ONE Stop: 03/31/21 14:59 Last Admin: 03/31/21 14:41 Dose: 200 mls/hr Documented by: Furosemide 100 mg/ Sodium (Chloride) 100 mls @ 10 mls/hr IV TITRATE ROSY; Protocol Last Infusion: 04/01/21 03:30 Dose: 0 mls/hr Documented by: Iopamidol (Iopamidol 755 Mg/Ml 100 Ml Bottle) 100 ml IVPUSH ONETIME ONE Stop: 03/31/21 10:44 Last Admin: 03/31/21 10:56 Dose: 100 ml Documented by: Methylprednisolone Sodium Succinate (Methylprednisolone Sodium Succinate 125 Mg/2 Ml Sdv) 125 mg IVPUSH ONETIME ONE Stop: 03/31/21 14:31 Last Admin: 03/31/21 14:44 Dose: 125 mg Documented by: Methylprednisolone Sodium Succinate (Methylprednisolone Sodium Succinate 40 Mg/1 Ml Sdv) 60 mg IVPUSH Q6H [facility] Last Admin: 04/03/21 08:20 Dose: 60 mg Documented by: Nicotine (Nicotine 21 Mg/24 Hr Patch) 21 mg TRDERM ONETIME ONE Stop: 03/31/21 16:16 Last Admin: 03/31/21 16:44 Dose: 21 mg Documented by: Sodium Chloride (Sodium Chloride 0.9% 10 Ml Syringe) 10 ml FLUSH ONETIME PRN PRN Reason: IV FLUSH Last Admin: 03/31/21 10:56 Dose: 10 ml Documented by: - Exam Quality Assessment: Supplemental Oxygen, Urine Catheter Urinary Catheter Total Time: 2Days 17Hours General: Alert, Oriented HEENT: Pupils Equal, Mucous Membr. Moist/[place] Neck: Supple Lungs: Rhonchi (Left lobe). No: Normal Respiratory Effort (Increased rate) Cardiovascular: Regular Rate, Regular Rhythm GI/Abdominal Exam: Normal Bowel Sounds, Soft, Non-Tender, No Abnormal Bruit Extremities: Normal Inspection, Normal Range of Motion, Non-Tender, No Pedal Edema, Normal Capillary Refill Skin: Warm, Dry, Intact Neurological: No New Focal Deficit Psy/Mental Status: Alert, Normal Affect, Normal Mood - Patient Data Lab Results Last 24 hrs: Laboratory Results - last 24 hr 04/03/21 04/03/21 Range/Units 06:01 06:01 WBC 15.18 H (3.98-10.04) K/mm3 RBC 4.68 (3.98-5.22) M/mm3 Hgb 13.9 (11.2-15.7) gm/dl Hct 45.0 H (34.1-44.9) % MCV 96.2 H (79.4-94.8) fl MCH 29.7 (25.6-32.2) pg MCHC 30.9 L (32.2-35.5) g/dl RDW Std Deviation 47.7 H (36.4-46.3) fL Plt Count 443 H (182-369) K/mm3 MPV 10.4 (9.4-12.3) fl Neut % (Auto) 82.5 H (34.0-71.1) % Lymph % (Auto) 9.6 L (19.3-51.7) % [place] % (Auto) 3.2 L (4.7-12.5) % Eos % (Auto) 0 L (0.7-5.8) Baso % (Auto) 0.4 (0.1-1.2) % Neut # (Auto) 12.53 H (1.56-6.13) K/mm3 Lymph # (Auto) 1.45 (1.18-3.74) K/mm3 [place] # (Auto) 0.48 H (0.24-0.36) K/mm3 Eos # (Auto) 0.00 L (0.04-0.36) K/mm3 Baso # (Auto) 0.06 (0.01-0.08) K/mm3 Manual Slide Review Abnormal smear Sodium 140 (136-145) mEq/L Potassium 4.3 (3.5-5.1) mEq/L Chloride 97 L (98-107) mEq/L Carbon Dioxide 40 H (21-32) mEq/L Anion Gap 7.3 (5-15) BUN 28 H (7-18) mg/dL Creatinine 0.9 (0.55-1.02) mg/dL Est Cr Clr Drug Dosing 73.33 mL/min Estimated GFR (MDRD) > 60 (>60) mL/min BUN/Creatinine Ratio 31.1 H (14-18) Glucose 143 H (70-99) mg/dL Calcium 9.1 (8.5-10.1) mg/dL Magnesium 2.8 H (1.8-2.4) mg/dL Total Bilirubin 0.3 (0.2-1.0) mg/dL AST 60 H (15-37) U/L ALT 253 H (14-59) U/L Alkaline Phosphatase 101 (46-116) U/L C-Reactive Protein 7.7 H* (<1.0) mg/dL Total Protein 6.5 (6.4-8.2) g/dl Albumin 2.7 L (3.4-5.0) g/dl Globulin 3.8 gm/dL Albumin/Globulin Ratio 0.7 L (1-2) Result Diagrams: 04/03/21 06:01 04/03/21 06:01 Sepsis Event Note - Evaluation Sepsis Screening Result: Severe Sepsis Risk - Focused Exam Vital Signs: Vital Signs Temp Pulse Resp BP Pulse Ox Pulse Ox Pulse Ox 04/03/21 09:28 93 L 04/03/21 06:00 97.5 F 18 91 L 04/03/21 05:56 95 04/03/21 05:06 94 L 04/03/21 04:00 96.8 F L 20 130/85 04/03/21 02:00 97 F 73 20 125/78 96 04/03/21 00:00 96.8 F L 72 20 127/84 04/02/21 22:58 96 - Problem List & Annotations (1) Respiratory failure with hypoxia and hypercapnia SNOMED Code(s): 43296063 Code(s): J96.91 - RESPIRATORY FAILURE, UNSPECIFIED WITH HYPOXIA; J96.92 - RESPIRATORY FAILURE, UNSPECIFIED WITH HYPERCAPNIA Status: Acute Current Visit: Yes (2) Reactive airway disease SNOMED Code(s): 109898215399 Code(s): J45.909 - UNSPECIFIED ASTHMA, UNCOMPLICATED Status: Acute Current Visit: Yes (3) Congestive heart failure SNOMED Code(s): 63903120 Code(s): I50.9 - HEART FAILURE, UNSPECIFIED Status: Acute Current Visit: Yes Qualifiers: Heart failure type: unspecified Heart failure chronicity: unspecified Qualified Code(s): I50.9 - Heart failure, unspecified (4) Elevated troponin SNOMED Code(s): 552218322, 827130858, 487982311 Code(s): R77.8 - OTHER SPECIFIED ABNORMALITIES OF PLASMA PROTEINS Status: Acute Current Visit: Yes - Problem List Review Problem List Initiated/Reviewed/Updated: Yes - My Orders Last 24 Hours: My Active Orders 04/03/21 09:39 BLOOD GAS ARTERIAL [BG] Urgent 04/03/21 10:40 CXR [Chest 1V Frontal] [CR] Routine 04/03/21 16:00 methylPREDNISolone Sod Succ [Solu-MEDROL] 40 mg IVPUSH Q8H 04/04/21 05:11 C-REACTIVE PROTEIN [CHEM] AM CBC WITH AUTO DIFF [HEME] AM CMP [COMPREHENSIVE METABOLIC PN,CMP] [CHEM] AM MAGNESIUM [CHEM] AM - Plan Plan:: 56-year-old female with no prior medical history brought to emergency department in respiratory failure. March 31, 2021 Acute respiratory failure secondary to hypercapnia and hypoxemia Respiratory acidosis Likely severe COPD exacerbation Tobaccoism/30+-pack-year history * Patient with 8 days of symptoms and reported FiO2 of 50% the night prior to arrival in the emergency department * Severe hypercapnia with respiratory acidosis on arrival to the emergency department * White count 24,000, CRP 35 * CT of the chest consistent with a bronchitis/bronchiolitis * Negative influenza and Covid in the emergency department. * Started on BiPAP in the emergency department * She likely has underlying heart and lung disease based on history. Decompensated CHF Elevated troponin with likely type II SC * Unknown if there is underlying heart disease * Given a total of 80 mg of Lasix in the emergency department. * Troponin 0 0.829 * proBNP 14,900 * Elevated LFTs likely secondary to heart failure with liver congestion. Elevated LFTs Alcohol abuse * Known history of heavy alcohol use * AST 970, ALT 488, alkaline phosphatase 135 * Last alcohol 8 days ago * No history of withdrawal symptoms April 01, 2021 56-year-old female with likely COPD admitted secondary to acute respiratory failure from hypercapnia hypoxemia. CT of the chest demonstrated br onchitis/bronchiolitis with no focal infiltrate on the CT of the chest. She is being treated with Rocephin and doxycycline. She continues on Solu-Medrol 60 mg every 6 hours and albuterol/Atrovent nebulizers as needed. Furosemide drip was held overnight and this morning she was given 60 mg of IV furosemide. White count did increase to 29.2 and CRP decreased slightly to 32.2. Hepatic enzymes: AST decreased to 456 while ALT increased to 525. Alk phos is stable at 130. Anion gap Normal at 8.5. Creatinine is stable at 1.1 with an estimated GFR of 51. BUN is up to 44. Respiratory panel was negative for all common viruses. Procalcitonin was 0.76. No signs of alcohol withdrawal. April 02, 2021 56-year-old female with likely COPD admitted with respiratory failure, acute bronchitis, decompensated CHF. Patient has continued to improve and currently is on nasal cannula at 6 L. Her ABG shows a pH of 7.33, PCO2 of 70, PO2 of 57, and a bicarb of 36. Patient was encouraged to use BiPAP when sleeping and taking naps. She should also use it as much as possible between meals. Patient continues without any signs of alcohol withdrawal. Her liver enzymes are AST 103, ALT 342, alkaline phosphatase 111 which are all improved. CRP is down to 15.3 and white count is down to 22.8. Overall she is improving. She may have some intravascular volume contraction with an elevated bicarb and increasing BUN to creatinine ratio. Kidney function is stable with estimated GFR of 57 and creatinine of 1.0. She will get furosemide 40 mg IV x1 today. Recheck labs [place] morning. Echocardiogram: 1. Left regular ejection fraction, by visual estimation, is 55 to 60%. 2. Normal left-ventricular systolic function. 3. Impaired relaxation grade 1 pattern of LV diastolic filling. 4. Mild concentric left ventricular hypertrophy. 5. Normal right ventricular size, wall thickness, and systolic function. 6. Trace mitral valve regurgitation. 7. Mild tricuspid valve regurgitation. 8. The right ventricular systolic pressure is mild to moderately elevated at 37.8 mmHg. 9. The inferior vena cava is dilated with respiratory size variation greater than 50%. 5. No regional wall motion abnormalities. April 03, 2021 56-year-old female with presumed COPD admitted with respiratory failure, acute bronchitis, and decompensated CHF. She is down to 3 L nasal cannula and ABG is significantly improved with a PCO2 down to 60. She will likely be able to stay off of BiPAP overnight. She is using her incentive spirometer and Acapella. She requested not to use BiPAP if possible because she had a very difficult time last night sleeping. Ejection fraction was normal and except for grade 1 pattern of LV diastolic filling and some mild right ventricular pressures it was normal. White count is down to 15.18 and CRP is down to 7.7. Creatinine is stable at 0.9 with an estimated GFR greater than 60. BUN has improved from 47- 28. Liver enzymes are also improving with an AST of 60 and ALT of 253. She will get Lasix 20 mg IV x1 and continue to monitor if diuresis is needed. Weights show a 10 pound increase which seems impossible, considering she is on Lasix and not receiving IV fluids except for antibiotics. Plan * Admit to ICU * FiO2 to keep SPO2 above 90% * Blood gases as needed * Decrease Solu-Medrol to 40 mg every 8 hours * Lasix 20 mg IV X1 * Continue Rocephin and doxycycline at this time * Albuterol and ipratropium bromide as needed * Repeat CXR * Respiratory therapist consulted * Nicotine patch * CBC, CMP, mag, CRP in the morning * Strict I's and O's and daily weights VTE prophylaxis with Lovenox CODE STATUS: Full code
--- NOTE | 2021-04-03 11:51 | CR ---
EXAM: XR CHEST 1 VIEW LOCATION: [facility] [place] DATE/TIME: 04/03/2021 10:54 AM INDICATION: Follow up from pneumonia. COMPARISON: CXRs 04/01/2021 and 03/31/2021 and CTA chest 03/31/2021. IMPRESSION: Shallow inspiration. Linear opacities in the periphery of the mid and lower lungs likely correlate with mild interstitial inflammation and bronchial wall thickening. Lungs are otherwise clear with no focal pulmonary consolidation. No pleural effusion. Heart size and pulmonary vascularity within normal limits. SIGNED BY: Goran Vaughn MD 04/03/2021 12:35 PM [facility]
[2021-04-03] MEDS: cefTRIAXone 2 GM in Sodium Chloride 0.9% 100 ML IV SCH (14:15)
[2021-04-04] MEDS: methylPREDNISolone Sodium Succinate 40 MG/1 ML SDV IVPUSH SCH ×3 (00:35→20:45)
--- NOTE | 2021-04-04 06:31 | PCM.PN ---
- General Info Date of Service: 04/04/21 Subjective Update: Marilee states that she feels well this morning. States that she slept better without the BiPAP on. Was able to maintain off of BiPAP overnight and she is alert and orientated x3 with no confusion noted this AM. States that she feels her breathing is not quite her baseline but is near it. She denies any worsening difficulty breathing, chest pains or pressures, abdominal pain, nausea or vomiting, remainder review of systems is negative except for those listed above. - Patient Data Vitals - Most Recent: Last Vital Signs Temp 97.8 F 04/03/21 16:00 Pulse 74 04/03/21 16:01 Resp 22 H 04/03/21 18:00 BP 115/71 04/03/21 18:00 Pulse Ox 92 L 04/03/21 18:00 Weight - Most Recent: 173 lb 6.4 oz I&O - Last 24 Hours: Intake & Output 04/03/21 04/03/21 04/04/21 14:59 22:59 06:59 Intake Total 235 200 Output Total 470 Balance -235 200 Lab Results Last 24 Hours: Laboratory Results - last 24 hr 04/03/21 04/03/21 04/03/21 Range/Units 06:01 06:01 09:39 WBC (3.98-10.04) K/mm3 RBC (3.98-5.22) M/mm3 Hgb (11.2-15.7) gm/dl Hct (34.1-44.9) % MCV (79.4-94.8) fl MCH (25.6-32.2) pg MCHC (32.2-35.5) g/dl RDW Std Deviation (36.4-46.3) fL Plt Count (182-369) K/mm3 MPV (9.4-12.3) fl Neut % (Auto) (34.0-71.1) % Lymph % (Auto) (19.3-51.7) % [place] % (Auto) (4.7-12.5) % Eos % (Auto) (0.7-5.8) Baso % (Auto) (0.1-1.2) % Neut # (Auto) (1.56-6.13) K/mm3 Lymph # (Auto) (1.18-3.74) K/mm3 [place] # (Auto) (0.24-0.36) K/mm3 Eos # (Auto) (0.04-0.36) K/mm3 Baso # (Auto) (0.01-0.08) K/mm3 Manual Slide Review Abnormal smear Puncture Site Rt radial ABG pH 7.42 (7.35-7.45) ABG pCO2 61.0 H (35.0-45.0) mmHg ABG pO2 60.0 L (80.0-100.0) mmHg ABG HCO3 38.5 H (22.0-26.0) meq/L ABG O2 Saturation 90.4 L (96.0-97.0) % ABG Base Excess 11.6 H (-2-2.0) Jairo Test Positive O2 Delivery Device Nasal cannula Oxygen Flow Rate 3.0 Sodium 140 (136-145) mEq/L Potassium 4.3 (3.5-5.1) mEq/L Chloride 97 L (98-107) mEq/L Carbon Dioxide 40 H (21-32) mEq/L Anion Gap 7.3 (5-15) BUN 28 H (7-18) mg/dL Creatinine 0.9 (0.55-1.02) mg/dL Est Cr Clr Drug Dosing 73.33 mL/min Estimated GFR (MDRD) > 60 (>60) mL/min BUN/Creatinine Ratio 31.1 H (14-18) Glucose 143 H (70-99) mg/dL Calcium 9.1 (8.5-10.1) mg/dL Magnesium 2.8 H (1.8-2.4) mg/dL Total Bilirubin 0.3 (0.2-1.0) mg/dL AST 60 H (15-37) U/L ALT 253 H (14-59) U/L Alkaline Phosphatase 101 (46-116) U/L C-Reactive Protein 7.7 H* (<1.0) mg/dL Total Protein 6.5 (6.4-8.2) g/dl Albumin 2.7 L (3.4-5.0) g/dl Globulin 3.8 gm/dL Albumin/Globulin Ratio 0.7 L (1-2) 04/04/21 Range/Units 05:37 WBC 13.69 H (3.98-10.04) K/mm3 RBC 4.77 (3.98-5.22) M/mm3 Hgb 14.3 (11.2-15.7) gm/dl Hct 45.3 H (34.1-44.9) % MCV 95.0 H (79.4-94.8) fl MCH 30.0 (25.6-32.2) pg MCHC 31.6 L (32.2-35.5) g/dl RDW Std Deviation 46.7 H (36.4-46.3) fL Plt Count 434 H (182-369) K/mm3 MPV 10.3 (9.4-12.3) fl Neut % (Auto) 80.6 H (34.0-71.1) % Lymph % (Auto) 11.7 L (19.3-51.7) % [place] % (Auto) 4.9 (4.7-12.5) % Eos % (Auto) 0.1 L (0.7-5.8) Baso % (Auto) 0.1 (0.1-1.2) % Neut # (Auto) 11.04 H (1.56-6.13) K/mm3 Lymph # (Auto) 1.60 (1.18-3.74) K/mm3 [place] # (Auto) 0.67 H (0.24-0.36) K/mm3 Eos # (Auto) 0.01 L (0.04-0.36) K/mm3 Baso # (Auto) 0.02 (0.01-0.08) K/mm3 Manual Slide Review Puncture Site ABG pH (7.35-7.45) ABG pCO2 (35.0-45.0) mmHg ABG pO2 (80.0-100.0) mmHg ABG HCO3 (22.0-26.0) meq/L ABG O2 Saturation (96.0-97.0) % ABG Base Excess (-2-2.0) Jairo Test O2 Delivery Device Oxygen Flow Rate Sodium (136-145) mEq/L Potassium (3.5-5.1) mEq/L Chloride (98-107) mEq/L Carbon Dioxide (21-32) mEq/L Anion Gap (5-15) BUN (7-18) mg/dL Creatinine (0.55-1.02) mg/dL Est Cr Clr Drug Dosing mL/min Estimated GFR (MDRD) (>60) mL/min BUN/Creatinine Ratio (14-18) Glucose (70-99) mg/dL Calcium (8.5-10.1) mg/dL Magnesium (1.8-2.4) mg/dL Total Bilirubin (0.2-1.0) mg/dL AST (15-37) U/L ALT (14-59) U/L Alkaline Phosphatase (46-116) U/L C-Reactive Protein (<1.0) mg/dL Total Protein (6.4-8.2) g/dl Albumin (3.4-5.0) g/dl Globulin gm/dL Albumin/Globulin Ratio (1-2) Med Orders - Current: Current Medications Acetaminophen (Acetaminophen 325 Mg Tab) 650 mg PO Q4H PRN PRN Reason: Pain (Mild 1-3)/fever Albuterol (Albuterol 0.083% 2.5 Mg/3 Ml Neb Soln) 2.5 mg NEB Q2H PRN PRN Reason: Shortness Of Breath/wheezing Last Admin: 04/01/21 07:49 Dose: 2.5 mg Documented by: Albuterol/Ipratropium (Albuterol/Ipratropium 3.0-0.5 Mg/3 Ml Neb Soln) 3 ml NEB Q4H PRN PRN Reason: Shortness Of Breath/wheezing Last Admin: 04/03/21 16:37 Dose: 3 ml Documented by: Enoxaparin Sodium (Enoxaparin 40 Mg/0.4 Ml Syringe) 40 mg SUBCUT DAILY [facility] Last Admin: 04/03/21 08:21 Dose: 40 mg Documented by: Guaifenesin (Guaifenesin 600 Mg Tab.Er) 600 mg PO TID [facility] Last Admin: 04/03/21 21:19 Dose: 600 mg Documented by: Ceftriaxone Sodium 2 gm/ (Sodium Chloride) 100 mls @ 200 mls/hr IV Q24H [facility] Last Admin: 04/03/21 14:15 Dose: 200 mls/hr Documented by: Doxycycline Hyclate 100 mg/ (Sodium Chloride) 100 mls @ 100 mls/hr IV Q12H [facility] Methylprednisolone Sodium Succinate (Methylprednisolone Sodium Succinate 40 Mg/1 Ml Sdv) 40 mg IVPUSH Q8H [facility] Last Admin: 04/04/21 00:35 Dose: 40 mg Documented by: Miscellaneous Information (Remove And Replace Nicotine Patch) 1 ea TRDERM DAILY [facility] Last Admin: 04/03/21 08:21 Dose: 1 ea Documented by: Nicotine (Nicotine 21 Mg/24 Hr Patch) 21 mg TRDERM DAILY [facility] Last Admin: 04/03/21 08:20 Dose: 21 mg Documented by: Ondansetron HCl (Ondansetron 4 Mg/2 Ml Sdv) 4 mg IV Q6H PRN PRN Reason: Nausea/Vomiting Sodium Chloride (Sodium Chloride 0.9% 10 Ml Syringe) 10 ml FLUSH ASDIRECTED PRN PRN Reason: Keep Vein Open Last Admin: 03/31/21 10:28 Dose: 10 ml Documented by: Discontinued Medications Albuterol (Albuterol 0.083% 2.5 Mg/3 Ml Neb Soln) 2.5 mg NEB ONETIME ONE Stop: 03/31/21 09:51 Last Admin: 03/31/21 10:00 Dose: 2.5 mg Documented by: Aspirin (Aspirin 81 Mg Tab.Chew) 324 mg PO ONETIME ONE Stop: 03/31/21 10:20 Last Admin: 03/31/21 10:27 Dose: 324 mg Documented by: Furosemide (Furosemide 40 Mg/4 Ml Vial) 40 mg IVPUSH NOW ONE Stop: 03/31/21 11:02 Last Admin: 03/31/21 11:11 Dose: 40 mg Documented by: Furosemide (Furosemide 40 Mg/4 Ml Vial) 40 mg IVPUSH NOW ONE Stop: 03/31/21 12:41 Last Admin: 03/31/21 12:48 Dose: 40 mg Documented by: Furosemide (Furosemide 40 Mg/4 Ml Vial) 60 mg IVPUSH NOW ONE Stop: 04/01/21 10:18 Last Admin: 04/01/21 10:57 Dose: 60 mg Documented by: Furosemide (Furosemide 40 Mg/4 Ml Vial) 40 mg IVPUSH Q6H [facility] Stop: 04/02/21 00:01 Last Admin: 04/02/21 00:42 Dose: 40 mg Documented by: Furosemide (Furosemide 40 Mg/4 Ml Vial) 40 mg IVPUSH NOW ONE Stop: 04/02/21 10:42 Last Admin: 04/02/21 10:57 Dose: 40 mg Documented by: Furosemide (Furosemide 20 Mg/2 Ml Vial) 20 mg IVPUSH ONETIME ONE Stop: 04/03/21 10:43 Last Admin: 04/03/21 11:21 Dose: 20 mg Documented by: Sodium Chloride (Normal Saline) 100 mls @ 75 mls/hr IV ASDIRECTED [facility] Last Admin: 03/31/21 10:56 Dose: 75 mls/hr Documented by: Ceftriaxone Sodium 1 gm/ (Sodium Chloride) 100 mls @ 200 mls/hr IV ONETIME ONE Stop: 03/31/21 11:21 Last Admin: 03/31/21 11:14 Dose: 200 mls/hr Documented by: Sodium Chloride (Normal Saline) Confirm Administered Dose 1,000 mls @ as directed .ROUTE .STK-MED ONE Stop: 03/31/21 10:59 Last Admin: 03/31/21 11:12 Dose: Not Given Documented by: Ceftriaxone Sodium 1 gm/ (Sodium Chloride) 100 mls @ 200 mls/hr IV ONETIME ONE Stop: 03/31/21 14:59 Last Admin: 03/31/21 14:41 Dose: 200 mls/hr Documented by: Doxycycline Hyclate 100 mg/ (Sodium Chloride) 100 mls @ 100 mls/hr IV Q12H [facility] Last Admin: 04/03/21 16:07 Dose: 100 mls/hr Documented by: Furosemide 100 mg/ Sodium (Chloride) 100 mls @ 10 mls/hr IV TITRATE [facility]; Protocol Last Infusion: 04/01/21 03:30 Dose: 0 mls/hr Documented by: Iopamidol (Iopamidol 755 Mg/Ml 100 Ml Bottle) 100 ml IVPUSH ONETIME ONE Stop: 03/31/21 10:44 Last Admin: 03/31/21 10:56 Dose: 100 ml Documented by: Methylprednisolone Sodium Succinate (Methylprednisolone Sodium Succinate 125 Mg/2 Ml Sdv) 125 mg IVPUSH ONETIME ONE Stop: 03/31/21 14:31 Last Admin: 03/31/21 14:44 Dose: 125 mg Documented by: Methylprednisolone Sodium Succinate (Methylprednisolone Sodium Succinate 40 Mg/1 Ml Sdv) 60 mg IVPUSH Q6H [facility] Last Admin: 04/03/21 08:20 Dose: 60 mg Documented by: Nicotine (Nicotine 21 Mg/24 Hr Patch) 21 mg TRDERM ONETIME ONE Stop: 03/31/21 16:16 Last Admin: 03/31/21 16:44 Dose: 21 mg Documented by: Sodium Chloride (Sodium Chloride 0.9% 10 Ml Syringe) 10 ml FLUSH ONETIME PRN PRN Reason: IV FLUSH Last Admin: 03/31/21 10:56 Dose: 10 ml Documented by: - Exam Quality Assessment: Supplemental Oxygen Urinary Catheter Total Time: 3Days 0Hours General: Alert, Oriented HEENT: Pupils Equal, Pupils Reactive Neck: Trachea Midline Lungs: Normal Respiratory Effort, Crackles (minimal at bases) Cardiovascular: Regular Rate, Regular Rhythm GI/Abdominal Exam: Normal Bowel Sounds, Soft Back Exam: Normal Inspection Peripheral Pulses: 2+: Radial (L), Radial (R) Skin: Warm, Dry Neurological: No New Focal Deficit Psy/Mental Status: Alert - Patient Data Lab Results Last 24 hrs: Laboratory Results - last 24 hr 04/03/21 04/03/21 04/03/21 Range/Units 06:01 06:01 09:39 WBC (3.98-10.04) K/mm3 RBC (3.98-5.22) M/mm3 Hgb (11.2-15.7) gm/dl Hct (34.1-44.9) % MCV (79.4-94.8) fl MCH (25.6-32.2) pg MCHC (32.2-35.5) g/dl RDW Std Deviation (36.4-46.3) fL Plt Count (182-369) K/mm3 MPV (9.4-12.3) fl Neut % (Auto) (34.0-71.1) % Lymph % (Auto) (19.3-51.7) % [place] % (Auto) (4.7-12.5) % Eos % (Auto) (0.7-5.8) Baso % (Auto) (0.1-1.2) % Neut # (Auto) (1.56-6.13) K/mm3 Lymph # (Auto) (1.18-3.74) K/mm3 [place] # (Auto) (0.24-0.36) K/mm3 Eos # (Auto) (0.04-0.36) K/mm3 Baso # (Auto) (0.01-0.08) K/mm3 Manual Slide Review Abnormal smear Puncture Site Rt radial ABG pH 7.42 (7.35-7.45) ABG pCO2 61.0 H (35.0-45.0) mmHg ABG pO2 60.0 L (80.0-100.0) mmHg ABG HCO3 38.5 H (22.0-26.0) meq/L ABG O2 Saturation 90.4 L (96.0-97.0) % ABG Base Excess 11.6 H (-2-2.0) Jairo Test Positive O2 Delivery Device Nasal cannula Oxygen Flow Rate 3.0 Sodium 140 (136-145) mEq/L Potassium 4.3 (3.5-5.1) mEq/L Chloride 97 L (98-107) mEq/L Carbon Dioxide 40 H (21-32) mEq/L Anion Gap 7.3 (5-15) BUN 28 H (7-18) mg/dL Creatinine 0.9 (0.55-1.02) mg/dL Est Cr Clr Drug Dosing 73.33 mL/min Estimated GFR (MDRD) > 60 (>60) mL/min BUN/Creatinine Ratio 31.1 H (14-18) Glucose 143 H (70-99) mg/dL Calcium 9.1 (8.5-10.1) mg/dL Magnesium 2.8 H (1.8-2.4) mg/dL Total Bilirubin 0.3 (0.2-1.0) mg/dL AST 60 H (15-37) U/L ALT 253 H (14-59) U/L Alkaline Phosphatase 101 (46-116) U/L C-Reactive Protein 7.7 H* (<1.0) mg/dL Total Protein 6.5 (6.4-8.2) g/dl Albumin 2.7 L (3.4-5.0) g/dl Globulin 3.8 gm/dL Albumin/Globulin Ratio 0.7 L (1-2) 04/04/21 Range/Units 05:37 WBC 13.69 H (3.98-10.04) K/mm3 RBC 4.77 (3.98-5.22) M/mm3 Hgb 14.3 (11.2-15.7) gm/dl Hct 45.3 H (34.1-44.9) % MCV 95.0 H (79.4-94.8) fl MCH 30.0 (25.6-32.2) pg MCHC 31.6 L (32.2-35.5) g/dl RDW Std Deviation 46.7 H (36.4-46.3) fL Plt Count 434 H (182-369) K/mm3 MPV 10.3 (9.4-12.3) fl Neut % (Auto) 80.6 H (34.0-71.1) % Lymph % (Auto) 11.7 L (19.3-51.7) % [place] % (Auto) 4.9 (4.7-12.5) % Eos % (Auto) 0.1 L (0.7-5.8) Baso % (Auto) 0.1 (0.1-1.2) % Neut # (Auto) 11.04 H (1.56-6.13) K/mm3 Lymph # (Auto) 1.60 (1.18-3.74) K/mm3 [place] # (Auto) 0.67 H (0.24-0.36) K/mm3 Eos # (Auto) 0.01 L (0.04-0.36) K/mm3 Baso # (Auto) 0.02 (0.01-0.08) K/mm3 Manual Slide Review Puncture Site ABG pH (7.35-7.45) ABG pCO2 (35.0-45.0) mmHg ABG pO2 (80.0-100.0) mmHg ABG HCO3 (22.0-26.0) meq/L ABG O2 Saturation (96.0-97.0) % ABG Base Excess (-2-2.0) Jairo Test O2 Delivery Device Oxygen Flow Rate Sodium (136-145) mEq/L Potassium (3.5-5.1) mEq/L Chloride (98-107) mEq/L Carbon Dioxide (21-32) mEq/L Anion Gap (5-15) BUN (7-18) mg/dL Creatinine (0.55-1.02) mg/dL Est Cr Clr Drug Dosing mL/min Estimated GFR (MDRD) (>60) mL/min BUN/Creatinine Ratio (14-18) Glucose (70-99) mg/dL Calcium (8.5-10.1) mg/dL Magnesium (1.8-2.4) mg/dL Total Bilirubin (0.2-1.0) mg/dL AST (15-37) U/L ALT (14-59) U/L Alkaline Phosphatase (46-116) U/L C-Reactive Protein (<1.0) mg/dL Total Protein (6.4-8.2) g/dl Albumin (3.4-5.0) g/dl Globulin gm/dL Albumin/Globulin Ratio (1-2) Result Diagrams: 04/04/21 05:37 04/04/21 05:37 Sepsis Event Note - Evaluation Sepsis Screening Result: No Definite Risk - Problem List & Annotations (1) Congestive heart failure SNOMED Code(s): 71557188 Code(s): I50.9 - HEART FAILURE, UNSPECIFIED Status: Acute Current Visit: Yes Qualifiers: Heart failure type: unspecified Heart failure chronicity: unspecified Qualified Code(s): I50.9 - Heart failure, unspecified (2) Elevated liver enzymes SNOMED Code(s): 782960154 Code(s): R74.8 - ABNORMAL LEVELS OF OTHER SERUM ENZYMES Status: Acute Current Visit: Yes (3) Elevated troponin SNOMED Code(s): 411806537, 151349727, 512405859 Code(s): R77.8 - OTHER SPECIFIED ABNORMALITIES OF PLASMA PROTEINS Status: Acute Current Visit: Yes (4) Pneumonia SNOMED Code(s): 629560275 Code(s): J18.9 - PNEUMONIA, UNSPECIFIED ORGANISM Status: Acute Current Visit: Yes Qualifiers: Pneumonia type: due to unspecified organism Laterality: bilateral Lung location: lower lobe of lung Qualified Code(s): J18.9 - Pneumonia, unspecified organism (5) Reactive airway disease SNOMED Code(s): 943465659673 Code(s): J45.909 - UNSPECIFIED ASTHMA, UNCOMPLICATED Status: Acute Current Visit: Yes (6) Respiratory failure with hypoxia and hypercapnia SNOMED Code(s): 67959447 Code(s): J96.91 - RESPIRATORY FAILURE, UNSPECIFIED WITH HYPOXIA; J96.92 - RESPIRATORY FAILURE, UNSPECIFIED WITH HYPERCAPNIA Status: Acute Current Visit: Yes - Problem List Review Problem List Initiated/Reviewed/Updated: Yes - Plan Plan:: 56-year-old female with no prior medical history brought to emergency department in respiratory failure. March 31, 2021 Acute respiratory failure secondary to hypercapnia and hypoxemia Respiratory acidosis Likely severe COPD exacerbation Tobacco use/30+-pack-year history * Patient with 8 days of symptoms and reported FiO2 of 50% the night prior to arrival in the emergency department * Severe hypercapnia with respiratory acidosis on arrival to the emergency department * White count 24,000, CRP 35 * CT of the chest consistent with a bronchitis/bronchiolitis * Negative influenza and Covid in the emergency department. * Started on BiPAP in the emergency department * She likely has underlying heart and lung disease based on history. Decompensated CHF Elevated troponin with likely type II NV * Unknown if there is underlying heart disease * Given a total of 80 mg of Lasix in the emergency department. * Troponin 0 0.829 * proBNP 14,900 * Elevated LFTs likely secondary to heart failure with liver congestion. Elevated LFTs Alcohol abuse * Known history of heavy alcohol use * AST 970, ALT 488, alkaline phosphatase 135 * Last alcohol 8 days ago * No history of withdrawal symptoms April 01, 2021 56-year-old female with likely COPD admitted secondary to acute respiratory f ailure from hypercapnia hypoxemia. CT of the chest demonstrated bronchitis/bronchiolitis with no focal infiltrate on the CT of the chest. She is being treated with Rocephin and doxycycline. She continues on Solu-Medrol 60 mg every 6 hours and albuterol/Atrovent nebulizers as needed. Furosemide drip was held overnight and this morning she was given 60 mg of IV furosemide. White count did increase to 29.2 and CRP decreased slightly to 32.2. Hepatic enzymes: AST decreased to 456 while ALT increased to 525. Alk phos is stable at 130. Anion gap Normal at 8.5. Creatinine is stable at 1.1 with an estimated GFR of 51. BUN is up to 44. Respiratory panel was negative for all common viruses. Procalcitonin was 0.76. No signs of alcohol withdrawal. April 02, 2021 56-year-old female with likely COPD admitted with respiratory failure, acute bronchitis, decompensated CHF. Patient has continued to improve and currently is on nasal cannula at 6 L. Her ABG shows a pH of 7.33, PCO2 of 70, PO2 of 57, and a bicarb of 36. Patient was encouraged to use BiPAP when sleeping and taking naps. She should also use it as much as possible between meals. Patient continues without any signs of alcohol withdrawal. Her liver enzymes are AST 103, ALT 342, alkaline phosphatase 111 which are all improved. CRP is down to 15.3 and white count is down to 22.8. Overall she is improving. She may have some intravascular volume contraction with an elevated bicarb and increasing BUN to creatinine ratio. Kidney function is stable with estimated GFR of 57 and creatinine of 1.0. She will get furosemide 40 mg IV x1 today. Recheck labs tomorrow morning. Echocardiogram: 1. Left regular ejection fraction, by visual estimation, is 55 to 60%. 2. Normal left-ventricular systolic function. 3. Impaired relaxation grade 1 pattern of LV diastolic filling. 4. Mild concentric left ventricular hypertrophy. 5. Normal right ventricular size, wall thickness, and systolic function. 6. Trace mitral valve regurgitation. 7. Mild tricuspid valve regurgitation. 8. The right ventricular systolic pressure is mild to moderately elevated at 37.8 mmHg. 9. The inferior vena cava is dilated with respiratory size variation greater than 50%. 5. No regional wall motion abnormalities. April 03, 2021 56-year-old female with presumed COPD admitted with respiratory failure, acute bronchitis, and decompensated CHF. She is down to 3 L nasal cannula and ABG is significantly improved with a PCO2 down to 60. She will likely be able to stay off of BiPAP overnight. She is using her incentive spirometer and Acapella. She requested not to use BiPAP if possible because she had a very difficult time last night sleeping. Ejection fraction was normal and except for grade 1 pattern of LV diastolic filling and some mild right ventricular pressures it was normal. White count is down to 15.18 and CRP is down to 7.7. Creatinine is stable at 0.9 with an estimated GFR greater than 60. BUN has improved from 47- 28. Liver enzymes are also improving with an AST of 60 and ALT of 253. She will get Lasix 20 mg IV x1 and continue to monitor if diuresis is needed. Weights show a 10 pound increase which seems impossible, considering she is on Lasix and not receiving IV fluids except for antibiotics. April 04, 2021 56-year-old female with presumed COPD admitted with respiratory failure, acute bronchitis, and decompensated CHF. Patient was able to be maintained off of BiPAP overnight. She continues to use her incentive spirometer. CRP is improved to 4.0, white count improved to 13. AST and ALT also improving. We will trial patient on p.o. 40 mg daily Lasix. Plan * FiO2 to keep SPO2 above 90% - currently on 3L * Blood gases as needed * Decrease Solu-Medrol to 40 mg every 12 hours -we will likely trial transition to p.o. prednisone tomorrow * Transition to Lasix 40 mg p.o. daily * Continue Rocephin and doxycycline at this time day 4 -can consider transition to p.o. medications pending improvement * Albuterol and ipratropium bromide as needed * Respiratory therapist consulted * Nicotine patch * WBC, CMP in AM * Strict I's and O's and daily weights VTE prophylaxis with Lovenox CODE STATUS: Full code
[2021-04-04] MEDS: Doxycycline 100 MG in Sodium Chloride 0.9% 100 ML IV SCH ×3 (06:43→18:06)
[2021-04-04] MEDS: Albuterol/Ipratropium 3.0-0.5 MG/3 ML Neb Soln NEB PRN (09:08)
[2021-04-04] MEDS: Furosemide 40 MG Tab PO SCH (09:25)
[2021-04-04] MEDS: guaiFENesin 600 MG Tab.ER PO SCH ×3 (09:26→20:45)
[2021-04-04] MEDS: Nicotine 21 MG/24 Hr Patch TRDERM SCH (09:26)
[2021-04-04] MEDS: Remove AND REPLACE NICOTINE Patch TRDERM SCH (09:32)
[2021-04-04] MEDS: Enoxaparin 40 MG/0.4 ML Syringe SUBCUT SCH (09:34)
[2021-04-04] MEDS: cefTRIAXone 2 GM in Sodium Chloride 0.9% 100 ML IV SCH (14:32)
[2021-04-05] MEDS: Doxycycline 100 MG in Sodium Chloride 0.9% 100 ML IV SCH (06:21)
--- NOTE | 2021-04-05 06:43 | PCM.PN ---
- General Info Date of Service: 04/05/21 Subjective Update: Marilee states that she feels well this morning. She states that she feels her breathing is at baseline. Patient was able to maintain off of BiPAP for greater than 48 hours. Again is alert and orientated x3. Denies any complaints this morning and is asking about going home. She states she does not have oxygen at home. Patient does not have a diagnosis of COPD she states she is never been diagnosed with this and was not aware of her diastolic heart failure. Patient states that she does not have nebulizer or oxygen at home. I discussed with her that we will attempt to set this up and if we are able to we could likely discharge her to home today. - Patient Data Vitals - Most Recent: Last Vital Signs Temp 98.1 F 04/05/21 02:23 Pulse 79 04/05/21 02:23 Resp 20 04/05/21 02:23 BP 124/72 04/05/21 02:23 Pulse Ox 93 L 04/05/21 02:23 Weight - Most Recent: 174 lb 9.6 oz I&O - Last 24 Hours: Intake & Output 04/04/21 04/04/21 04/05/21 14:59 22:59 06:59 Intake Total 120 1000 1020 Output Total 200 750 Balance 120 800 270 Lab Results Last 24 Hours: Laboratory Results - last 24 hr 04/04/21 04/05/21 04/05/21 Range/Units 05:37 05:31 05:31 WBC 13.16 H (3.98-10.04) K/mm3 Manual Slide Review Abnormal smear Sodium 138 (136-145) mEq/L Potassium 3.9 (3.5-5.1) mEq/L Chloride 98 (98-107) mEq/L Carbon Dioxide 39 H (21-32) mEq/L Anion Gap 4.9 L (5-15) BUN 14 (7-18) mg/dL Creatinine 0.6 (0.55-1.02) mg/dL Est Cr Clr Drug Dosing 109.99 mL/min Estimated GFR (MDRD) > 60 (>60) mL/min BUN/Creatinine Ratio 23.3 H (14-18) Glucose 112 H (70-99) mg/dL Calcium 8.5 (8.5-10.1) mg/dL Total Bilirubin 0.2 (0.2-1.0) mg/dL AST 27 (15-37) U/L ALT 133 H (14-59) U/L Alkaline Phosphatase 76 (46-116) U/L Total Protein 6.0 L (6.4-8.2) g/dl Albumin 2.6 L (3.4-5.0) g/dl Globulin 3.4 gm/dL Albumin/Globulin Ratio 0.8 L (1-2) Med Orders - Current: Current Medications Acetaminophen (Acetaminophen 325 Mg Tab) 650 mg PO Q4H PRN PRN Reason: Pain (Mild 1-3)/fever Albuterol (Albuterol 0.083% 2.5 Mg/3 Ml Neb Soln) 2.5 mg NEB Q2H PRN PRN Reason: Shortness Of Breath/wheezing Last Admin: 04/01/21 07:49 Dose: 2.5 mg Documented by: Albuterol/Ipratropium (Albuterol/Ipratropium 3.0-0.5 Mg/3 Ml Neb Soln) 3 ml NEB Q4H PRN PRN Reason: Shortness Of Breath/wheezing Last Admin: 04/04/21 09:08 Dose: 3 ml Documented by: Enoxaparin Sodium (Enoxaparin 40 Mg/0.4 Ml Syringe) 40 mg SUBCUT DAILY [facility] Last Admin: 04/04/21 09:34 Dose: 40 mg Documented by: Furosemide (Furosemide 40 Mg Tab) 40 mg PO DAILY [facility] Last Admin: 04/04/21 09:25 Dose: 40 mg Documented by: Guaifenesin (Guaifenesin 600 Mg Tab.Er) 600 mg PO TID [facility] Last Admin: 04/04/21 20:45 Dose: 600 mg Documented by: Ceftriaxone Sodium 2 gm/ (Sodium Chloride) 100 mls @ 200 mls/hr IV Q24H [facility] Last Admin: 04/04/21 14:32 Dose: 200 mls/hr Documented by: Doxycycline Hyclate 100 mg/ (Sodium Chloride) 100 mls @ 100 mls/hr IV Q12H [facility] Last Admin: 04/05/21 06:21 Dose: 100 mls/hr Documented by: Methylprednisolone Sodium Succinate (Methylprednisolone Sodium Succinate 40 Mg/1 Ml Sdv) 40 mg IVPUSH Q12H [facility] Last Admin: 04/04/21 20:45 Dose: 40 mg Documented by: Miscellaneous Information (Remove And Replace Nicotine Patch) 1 ea TRDERM DAILY [facility] Last Admin: 04/04/21 09:32 Dose: 1 ea Documented by: Nicotine (Nicotine 21 Mg/24 Hr Patch) 21 mg TRDERM DAILY [facility] Last Admin: 04/04/21 09:26 Dose: 21 mg Documented by: Ondansetron HCl (Ondansetron 4 Mg/2 Ml Sdv) 4 mg IV Q6H PRN PRN Reason: Nausea/Vomiting Sodium Chloride (Sodium Chloride 0.9% 10 Ml Syringe) 10 ml FLUSH ASDIRECTED PRN PRN Reason: Keep Vein Open Last Admin: 03/31/21 10:28 Dose: 10 ml Documented by: Discontinued Medications Albuterol (Albuterol 0.083% 2.5 Mg/3 Ml Neb Soln) 2.5 mg NEB ONETIME ONE Stop: 03/31/21 09:51 Last Admin: 03/31/21 10:00 Dose: 2.5 mg Documented by: Aspirin (Aspirin 81 Mg Tab.Chew) 324 mg PO ONETIME ONE Stop: 03/31/21 10:20 Last Admin: 03/31/21 10:27 Dose: 324 mg Documented by: Furosemide (Furosemide 40 Mg/4 Ml Vial) 40 mg IVPUSH NOW ONE Stop: 03/31/21 11:02 Last Admin: 03/31/21 11:11 Dose: 40 mg Documented by: Furosemide (Furosemide 40 Mg/4 Ml Vial) 40 mg IVPUSH NOW ONE Stop: 03/31/21 12:41 Last Admin: 03/31/21 12:48 Dose: 40 mg Documented by: Furosemide (Furosemide 40 Mg/4 Ml Vial) 60 mg IVPUSH NOW ONE Stop: 04/01/21 10:18 Last Admin: 04/01/21 10:57 Dose: 60 mg Documented by: Furosemide (Furosemide 40 Mg/4 Ml Vial) 40 mg IVPUSH Q6H [facility] Stop: 04/02/21 00:01 Last Admin: 04/02/21 00:42 Dose: 40 mg Documented by: Furosemide (Furosemide 40 Mg/4 Ml Vial) 40 mg IVPUSH NOW ONE Stop: 04/02/21 10:42 Last Admin: 04/02/21 10:57 Dose: 40 mg Documented by: Furosemide (Furosemide 20 Mg/2 Ml Vial) 20 mg IVPUSH ONETIME ONE Stop: 04/03/21 10:43 Last Admin: 04/03/21 11:21 Dose: 20 mg Documented by: Furosemide (Furosemide 20 Mg Tab) 40 mg PO DAILY [facility] Sodium Chloride (Normal Saline) 100 mls @ 75 mls/hr IV ASDIRECTED [facility] Last Admin: 03/31/21 10:56 Dose: 75 mls/hr Documented by: Ceftriaxone Sodium 1 gm/ (Sodium Chloride) 100 mls @ 200 mls/hr IV ONETIME ONE Stop: 03/31/21 11:21 Last Admin: 03/31/21 11:14 Dose: 200 mls/hr Documented by: Sodium Chloride (Normal Saline) Confirm Administered Dose 1,000 mls @ as directed .ROUTE .STK-MED ONE Stop: 03/31/21 10:59 Last Admin: 03/31/21 11:12 Dose: Not Given Documented by: Ceftriaxone Sodium 1 gm/ (Sodium Chloride) 100 mls @ 200 mls/hr IV ONETIME ONE Stop: 03/31/21 14:59 Last Admin: 03/31/21 14:41 Dose: 200 mls/hr Documented by: Doxycycline Hyclate 100 mg/ (Sodium Chloride) 100 mls @ 100 mls/hr IV Q12H [facility] Last Admin: 04/04/21 13:12 Dose: Not Given Documented by: Furosemide 100 mg/ Sodium (Chloride) 100 mls @ 10 mls/hr IV TITRATE [facility]; Protocol Last Infusion: 04/01/21 03:30 Dose: 0 mls/hr Documented by: Iopamidol (Iopamidol 755 Mg/Ml 100 Ml Bottle) 100 ml IVPUSH ONETIME ONE Stop: 03/31/21 10:44 Last Admin: 03/31/21 10:56 Dose: 100 ml Documented by: Methylprednisolone Sodium Succinate (Methylprednisolone Sodium Succinate 125 Mg/2 Ml Sdv) 125 mg IVPUSH ONETIME ONE Stop: 03/31/21 14:31 Last Admin: 03/31/21 14:44 Dose: 125 mg Documented by: Methylprednisolone Sodium Succinate (Methylprednisolone Sodium Succinate 40 Mg/1 Ml Sdv) 60 mg IVPUSH Q6H [facility] Last Admin: 04/03/21 08:20 Dose: 60 mg Documented by: Methylprednisolone Sodium Succinate (Methylprednisolone Sodium Succinate 40 Mg/1 Ml Sdv) 40 mg IVPUSH Q8H [facility] Last Admin: 04/04/21 11:01 Dose: Not Given Documented by: Nicotine (Nicotine 21 Mg/24 Hr Patch) 21 mg TRDERM ONETIME ONE Stop: 03/31/21 16:16 Last Admin: 03/31/21 16:44 Dose: 21 mg Documented by: Sodium Chloride (Sodium Chloride 0.9% 10 Ml Syringe) 10 ml FLUSH ONETIME PRN PRN Reason: IV FLUSH Last Admin: 03/31/21 10:56 Dose: 10 ml Documented by: - Exam Quality Assessment: Supplemental Oxygen Urinary Catheter Total Time: 3Days 0Hours General: Alert, Oriented, No Acute Distress HEENT: Pupils Equal, Pupils Reactive Neck: Supple Lungs: Clear to Auscultation, Normal Respiratory Effort Cardiovascular: Regular Rate, Regular Rhythm GI/Abdominal Exam: Normal Bowel Sounds, Soft, Non-Tender Back Exam: Normal Inspection Extremities: Normal Inspection, Normal Range of Motion Peripheral Pulses: 2+: Radial (L), Radial (R) Skin: Warm, Dry Neurological: No New Focal Deficit Psy/Mental Status: Alert - Patient Data Lab Results Last 24 hrs: Laboratory Results - last 24 hr 04/04/21 04/05/21 04/05/21 Range/Units 05:37 05:31 05:31 WBC 13.16 H (3.98-10.04) K/mm3 Manual Slide Review Abnormal smear Sodium 138 (136-145) mEq/L Potassium 3.9 (3.5-5.1) mEq/L Chloride 98 (98-107) mEq/L Carbon Dioxide 39 H (21-32) mEq/L Anion Gap 4.9 L (5-15) BUN 14 (7-18) mg/dL Creatinine 0.6 (0.55-1.02) mg/dL Est Cr Clr Drug Dosing 109.99 mL/min Estimated GFR (MDRD) > 60 (>60) mL/min BUN/Creatinine Ratio 23.3 H (14-18) Glucose 112 H (70-99) mg/dL Calcium 8.5 (8.5-10.1) mg/dL Total Bilirubin 0.2 (0.2-1.0) mg/dL AST 27 (15-37) U/L ALT 133 H (14-59) U/L Alkaline Phosphatase 76 (46-116) U/L Total Protein 6.0 L (6.4-8.2) g/dl Albumin 2.6 L (3.4-5.0) g/dl Globulin 3.4 gm/dL Albumin/Globulin Ratio 0.8 L (1-2) Result Diagrams: 04/05/21 05:31 04/05/21 05:31 Sepsis Event Note - Evaluation Sepsis Screening Result: No Definite Risk - Focused Exam Vital Signs: Vital Signs Temp Pulse Resp BP Pulse Ox 04/05/21 02:23 98.1 F 79 20 124/72 93 L 04/04/21 20:44 98.4 F 89 20 128/73 91 L - Problem List & Annotations (1) Congestive heart failure SNOMED Code(s): 20373596 Code(s): I50.9 - HEART FAILURE, UNSPECIFIED Status: Acute Current Visit: Yes Qualifiers: Heart failure type: unspecified Heart failure chronicity: unspecified John lified Code(s): I50.9 - Heart failure, unspecified (2) Elevated liver enzymes SNOMED Code(s): 725765092 Code(s): R74.8 - ABNORMAL LEVELS OF OTHER SERUM ENZYMES Status: Acute Cu rrent Visit: Yes (3) Elevated troponin SNOMED Code(s): 362262212, 651594831, 612046984 Code(s): R77.8 - OTHER SPECIFIED ABNORMALITIES OF PLASMA PROTEINS Status: Acute Current Visit: Yes (4) Pneumonia SNOMED Code(s): 803761513 Code(s): J18.9 - PNEUMONIA, UNSPECIFIED ORGANISM Status: Acute Current Visit: Yes Qualifiers: Pneumonia type: due to unspecified organism Laterality: bilateral Lung location: lower lobe of lung Qualified Code(s): J18.9 - Pneumonia, unspecified organism (5) Reactive airway disease SNOMED Code(s): 088916630884 Code(s): J45.909 - UNSPECIFIED ASTHMA, UNCOMPLICATED Status: Acute Current Visit: Yes (6) Respiratory failure with hypoxia and hypercapnia SNOMED Code(s): 80177891 Code(s): J96.91 - RESPIRATORY FAILURE, UNSPECIFIED WITH HYPOXIA; J96.92 - RESPIRATORY FAILURE, UNSPECIFIED WITH HYPERCAPNIA Status: Acute Current Visit: Yes - Problem List Review Problem List Initiated/Reviewed/Updated: Yes - My Orders Last 24 Hours: My Active Orders 04/04/21 09:00 Furosemide [Lasix] 40 mg PO DAILY 04/04/21 20:00 methylPREDNISolone Sod Succ [Solu-MEDROL] 40 mg IVPUSH Q12H - Plan Plan:: 56-year-old female with no prior medical history brought to emergency department in respiratory failure. March 31, 2021 Acute respiratory failure secondary to hypercapnia and hypoxemia Respiratory acidosis Likely severe COPD exacerbation Tobacco use/30+-pack-year history * Patient with 8 days of symptoms and reported FiO2 of 50% the night prior to arrival in the emergency department * Severe hypercapnia with respiratory acidosis on arrival to the emergency department * White count 24,000, CRP 35 * CT of the chest consistent with a bronchitis/bronchiolitis * Negative influenza and Covid in the emergency department. * Started on BiPAP in the emergency department * She likely has underlying heart and lung disease based on history. Decompensated CHF Elevated troponin with likely type II IL * Unknown if there is underlying heart disease * Given a total of 80 mg of Lasix in the emergency department. * Troponin 0 0.829 * proBNP 14,900 * Elevated LFTs likely secondary to heart failure with liver congestion. Elevated LFTs Alcohol abuse * Known history of heavy alcohol use * AST 970, ALT 488, alkaline phosphatase 135 * Last alcohol 8 days ago * No history of withdrawal symptoms April 01, 2021 56-year-old female with likely COPD admitted secondary to acute respiratory failure from hypercapnia hypoxemia. CT of the chest demonstrated bronchiti s/bronchiolitis with no focal infiltrate on the CT of the chest. She is being treated with Rocephin and doxycycline. She continues on Solu-Medrol 60 mg every 6 hours and albuterol/Atrovent nebulizers as needed. Furosemide drip was held overnight and this morning she was given 60 mg of IV furosemide. White count did increase to 29.2 and CRP decreased slightly to 32.2. Hepatic enzymes: AST decreased to 456 while ALT increased to 525. Alk phos is stable at 130. Anion gap Normal at 8.5. Creatinine is stable at 1.1 with an estimated GFR of 51. BUN is up to 44. Respiratory panel was negative for all common viruses. Procalcitonin was 0.76. No signs of alcohol withdrawal. April 02, 2021 56-year-old female with likely COPD admitted with respiratory failure, acute bronchitis, decompensated CHF. Patient has continued to improve and currently is on nasal cannula at 6 L. Her ABG shows a pH of 7.33, PCO2 of 70, PO2 of 57, and a bicarb of 36. Patient was encouraged to use BiPAP when sleeping and taking naps. She should also use it as much as possible between meals. Patient continues without any signs of alcohol withdrawal. Her liver enzymes are AST 103, ALT 342, alkaline phosphatase 111 which are all improved. CRP is down to 15.3 and white count is down to 22.8. Overall she is improving. She may have some intravascular volume contraction with an elevated bicarb and increasing BUN to creatinine ratio. Kidney function is stable with estimated GFR of 57 and creatinine of 1.0. She will get furosemide 40 mg IV x1 today. Recheck labs tomorrow morning. Echocardiogram: 1. Left regular ejection fraction, by visual estimation, is 55 to 60%. 2. Normal left-ventricular systolic function. 3. Impaired relaxation grade 1 pattern of LV diastolic filling. 4. Mild concentric left ventricular hypertrophy. 5. Normal right ventricular size, wall thickness, and systolic function. 6. Trace mitral valve regurgitation. 7. Mild tricuspid valve regurgitation. 8. The right ventricular systolic pressure is mild to moderately elevated at 37.8 mmHg. 9. The inferior vena cava is dilated with respiratory size variation greater than 50%. 5. No regional wall motion abnormalities. April 03, 2021 56-year-old female with presumed COPD admitted with respiratory failure, acute bronchitis, and decompensated CHF. She is down to 3 L nasal cannula and ABG is significantly improved with a PCO2 down to 60. She will likely be able to stay off of BiPAP overnight. She is using her incentive spirometer and Acapella. She requested not to use BiPAP if possible because she had a very difficult time last night sleeping. Ejection fraction was normal and except for grade 1 pattern of LV diastolic filling and some mild right ventricular pressures it was normal. White count is down to 15.18 and CRP is down to 7.7. Creatinine is stable at 0.9 with an estimated GFR greater than 60. BUN has improved from 47- 28. Liver enzymes are also improving with an AST of 60 and ALT of 253. She will get Lasix 20 mg IV x1 and continue to monitor if diuresis is needed. Weights show a 10 pound increase which seems impossible, considering she is on Lasix and not receiving IV fluids except for antibiotics. April 04, 2021 56-year-old female with presumed COPD admitted with respiratory failure, acute bronchitis, and decompensated CHF. Patient was able to be maintained off of BiPAP overnight. She continues to use her incentive spirometer. CRP is improved to 4.0, white count improved to 13. AST and ALT also improving. We will trial patient on p.o. 40 mg daily Lasix. April 05, 2021 56-year-old female with presumed COPD admitted with respiratory failure, acute bronchitis, and decompensated CHF. Patient was able to be maintained off of BiPAP for >48 hours She continues to use her incentive spirometer. White count improved to 13. AST and ALT also improving. Plan * FiO2 to keep SPO2 above 90% - currently on 1L * Transition to p.o. prednisone 40 mg today * Continue Lasix 40 mg p.o. daily -we will discharge patient with Lasix, follow- up creatinine electrolytes and follow-up with PCP within 1 week * Continue Rocephin and doxycycline at this time day 5 -we will transition to p.o. doxycycline for 2 additional days * Will arrange for home nebulizer, home oxygen and duo nebs * Respiratory therapist consulted * Possible discharge to home today pending progress and home equipment availability. VTE prophylaxis with Lovenox CODE STATUS: Full code
[2021-04-05] MEDS: methylPREDNISolone Sodium Succinate 40 MG/1 ML SDV IVPUSH SCH (08:00)
[2021-04-05] MEDS: Nicotine 21 MG/24 Hr Patch TRDERM SCH (08:01)
[2021-04-05] MEDS: Remove AND REPLACE NICOTINE Patch TRDERM SCH (08:02)
[2021-04-05] MEDS: Enoxaparin 40 MG/0.4 ML Syringe SUBCUT SCH (08:05)
[2021-04-05] MEDS: Furosemide 40 MG Tab PO SCH (08:05)
[2021-04-05] MEDS: guaiFENesin 600 MG Tab.ER PO SCH (08:05)
--- NOTE | 2021-04-05 08:56 | PCM.DCSUM1 ---
Discharge Summary - Hospital Course Free Text/Narrative:: 56-year-old female who presented to the emergency department via [facility] with no known medical history in respiratory distress. 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 He obtained a portable oxygen from the local ambulance service and placed her on a 15 L nonrebreather. She was transferred to the emergency department this morning found to be tachypneic, on a nonreb reather at 12 L, and oxygen saturations of 100%. In the emergency department they decreased her FiO2 to 10 L. Blood gas obtained in pH was 7.22 with a PCO2 of 82. Patient was placed on BiPAP with pressures of 10/5. Speaking to the it appears she has been under the weather for approximately 8 days. She had a flulike illness with fevers and worsening cough and shortness of breath. She generally smokes a pack or more cigarettes per day since she was in her teens. She drinks 6 pack plus of beer 3-4 times per week. Last alcohol was 8 days ago. Patient generally does not take medications and has since been seen by a physician in over 7 years. He did state that she has had some difficulty breathing over the last several months and was taking an herbal supplement to help her breathing and allergies when she was gardening. She did respond well enough to me to tell me that she had some benefit recently when she tried the same herbal supplement. Apparently she was taking Zithromax this was obtained from [place]. She has not been diagnosed with heart failure, COPD, hypertension, diabetes, although it is likely she does have some degree of COPD and heart disease. Family history is significant for a mother with coronary artery disease with 1 stent and kidney disease of unknown cause. 1 brother with alcohol abuse disorder. She is estranged from her father, therefore unknown health. In the emergency department White count came back at 24.72 with a D-dimer of 1.93. CRP was 34.7 with a troponin of 0.829 and a proBNP of 14,948. Ferritin was elevated at 3947 and lactate dehydrogenase of 979. Fortunately, lactic acid was 1.5. She was given 40 mg of Lasix x2 in the emergency department. Emergency room provider did contact cardiology at . Unfo rtunately there are no beds in [facility] for ICU. Per ED provider they recommended that we continue with our current therapy of BiPAP, Lasix, and antibiotics. They felt that CHF is likely secondary to pneumonia. Patient continued to improve with IV antibiotics, as needed BiPAP and Lasix. Patient's respiratory status continued to improve and she was able to wean down oxygen to requiring only 1 L. Patient was able to maintain off of BiPAP with no further hypercapnia for greater than 48 hours prior to discharge. Respiratory therapy was consulted and patient qualified for home oxygen. Patient qualified for 1 L at last with 3 L with exertion due to COPD. She will be discharged with p.o. antibiotics of doxycycline to complete her course. A TTE was performed which showed normal ejection fraction but did show grade 1 diastolic dysfunction. Patient will be continued on 40 mg p.o. Lasix upon discharge and 20 mill equivalents KCl. Recommend follow-up with patient's PCP within 1 week with follow-up electrolytes and creatinine. Patient was hemodynamically stable and medically stable for discharge to home. - Discharge Data Discharge Date: 04/05/21 Discharge Disposition: Home, Self-Care 01 Condition: Good - Referral to Home Health Primary Care Physician: Betty Yip NP - Discharge Diagnosis/Problem(s) (1) Congestive heart failure SNOMED Code(s): 99234473 ICD Code: I50.9 - HEART FAILURE, UNSPECIFIED Status: Acute Current Visit: Yes Qualifiers: Heart failure type: unspecified Heart failure chronicity: unspecified Qualified Code(s): I50.9 - Heart failure, unspecified (2) Elevated liver enzymes SNOMED Code(s): 635303190 ICD Code: R74.8 - ABNORMAL LEVELS OF OTHER SERUM ENZYMES Status: Acute Current Visit: Yes (3) Elevated troponin SNOMED Code(s): 828560610, 853677538, 070067662 ICD Code: R77.8 - OTHER SPECIFIED ABNORMALITIES OF PLASMA PROTEINS Status: Acute Current Visit: Yes (4) Pneumonia SNOMED Code(s): 525402701 ICD Code: J18.9 - PNEUMONIA, UNSPECIFIED ORGANISM Status: Acute Current Visit: Yes Qualifiers: Pneumonia type: due to unspecified organism Laterality: bilateral Lung location: lower lobe of lung Qualified Code(s): J18.9 - Pneumonia, unspecified organism (5) Reactive airway disease SNOMED Code(s): 084486363398 ICD Code: J45.909 - UNSPECIFIED ASTHMA, UNCOMPLICATED Status: Acute Current Visit: Yes (6) Respiratory failure with hypoxia and hypercapnia SNOMED Code(s): 05582772 ICD Code: J96.91 - RESPIRATORY FAILURE, UNSPECIFIED WITH HYPOXIA; J96.92 - RESPIRATORY FAILURE, UNSPECIFIED WITH HYPERCAPNIA Status: Acute Current Visit: Yes - Patient Summary/Data Consults: Consultations 03/31/21 14:19 Respiratory Care Assess and Treatment [CONS] Routine - Patient Instructions Diet: Heart Healthy Diet, Low Sodium Activity: As Tolerated - Discharge Plan *PRESCRIPTION DRUG MONITORING PROGRAM REVIEWED*: No *COPY OF PRESCRIPTION DRUG MONITORING REPORT IN PATIENT PHILLIP: No Prescriptions/Med Rec: Nebulizer [Aeroeclipse II] 1 each MC Q4HR PRN #1 each PRN Reason: Shortness Of Breath Albuterol/Ipratropium [DuoNeb 3.0-0.5 MG/3 ML] 3 ml NEB Q4H PRN 30 Days #60 neb PRN Reason: Shortness Of Breath/wheezing Potassium Chloride [Klor-Con M20] 20 meq PO DAILY 30 Days #30 tab.er Furosemide [Lasix] 40 mg PO DAILY 30 Days #30 tablet predniSONE 40 mg PO DAILY 5 Days #5 tab Doxycycline [Vibramycin] 100 mg PO BID 2 Days #4 tab Home Medications: Home Meds Albuterol/Ipratropium [DuoNeb 3.0-0.5 MG/3 ML] 3 ml NEB Q4H PRN 30 Days #60 neb 04/05/21 [Rx] Doxycycline [Vibramycin] 100 mg PO BID 2 Days #4 tab 04/05/21 [Rx] Furosemide [Lasix] 40 mg PO DAILY 30 Days #30 tablet 04/05/21 [Rx] Nebulizer [Aeroeclipse II] 1 each MC Q4HR PRN #1 each 04/05/21 [Rx] Potassium Chloride [Klor-Con M20] 20 meq PO DAILY 30 Days #30 tab.er 04/05/21 [Rx] predniSONE 40 mg PO DAILY 5 Days #5 tab 04/05/21 [Rx] Oxygen Therapy Mode: Nasal Cannula Oxygen Flow Rate (L/min): 1 (1L with rest 3L with activity) Patient Handouts: Steps to Quit Smoking, [id number], Sepsis, Diagnosis, Adult , Heart Failure, Diagnosis, Community-Acquired Pneumonia, Adult, [id number] Forms: ED Department Discharge Referrals: Betty Yip [employer]IST [Primary Care Provider] - - Discharge Summary/Plan Comment DC Time >30 min.: Yes Total # of Minutes for Discharge Time: 45 minutes - Patient Data Vitals - Most Recent: Last Vital Signs Temp 98.1 F 04/05/21 02:23 Pulse 79 04/05/21 02:23 Resp 20 04/05/21 02:23 BP 124/72 04/05/21 02:23 Pulse Ox 93 L 04/05/21 02:23 Weight - Most Recent: 174 lb 9.6 oz I&O - Last 24 hours: Intake & Output 04/04/21 04/05/21 04/05/21 22:59 06:59 14:59 Intake Total 1000 1020 Output Total 200 750 Balance 800 270 Lab Results - Last 24 hrs: Laboratory Results - last 24 hr 04/05/21 04/05/21 Range/Units 05:31 05:31 WBC 13.16 H (3.98-10.04) K/mm3 Sodium 138 (136-145) mEq/L Potassium 3.9 (3.5-5.1) mEq/L Chloride 98 (98-107) mEq/L Carbon Dioxide 39 H (21-32) mEq/L Anion Gap 4.9 L (5-15) BUN 14 (7-18) mg/dL Creatinine 0.6 (0.55-1.02) mg/dL Est Cr Clr Drug Dosing 109.99 mL/min Estimated GFR (MDRD) > 60 (>60) mL/min BUN/Creatinine Ratio 23.3 H (14-18) Glucose 112 H (70-99) mg/dL Calcium 8.5 (8.5-10.1) mg/dL Total Bilirubin 0.2 (0.2-1.0) mg/dL AST 27 (15-37) U/L ALT 133 H (14-59) U/L Alkaline Phosphatase 76 (46-116) U/L Total Protein 6.0 L (6.4-8.2) g/dl Albumin 2.6 L (3.4-5.0) g/dl Globulin 3.4 gm/dL Albumin/Globulin Ratio 0.8 L (1-2) Med Orders - Current: Current Medications Acetaminophen (Acetaminophen 325 Mg Tab) 650 mg PO Q4H PRN PRN Reason: Pain (Mild 1-3)/fever Albuterol (Albuterol 0.083% 2.5 Mg/3 Ml Neb Soln) 2.5 mg NEB Q2H PRN PRN Reason: Shortness Of Breath/wheezing Last Admin: 04/01/21 07:49 Dose: 2.5 mg Documented by: Albuterol/Ipratropium (Albuterol/Ipratropium 3.0-0.5 Mg/3 Ml Neb Soln) 3 ml NEB Q4H PRN PRN Reason: Shortness Of Breath/wheezing Last Admin: 04/04/21 09:08 Dose: 3 ml Documented by: Enoxaparin Sodium (Enoxaparin 40 Mg/0.4 Ml Syringe) 40 mg SUBCUT DAILY [facility] Last Admin: 04/05/21 08:05 Dose: 40 mg Documented by: Furosemide (Furosemide 40 Mg Tab) 40 mg PO DAILY [facility] Last Admin: 04/05/21 08:05 Dose: 40 mg Documented by: Guaifenesin (Guaifenesin 600 Mg Tab.Er) 600 mg PO TID [facility] Last Admin: 04/05/21 08:05 Dose: 600 mg Documented by: Ceftriaxone Sodium 2 gm/ (Sodium Chloride) 100 mls @ 200 mls/hr IV Q24H [facility] Last Admin: 04/04/21 14:32 Dose: 200 mls/hr Documented by: Doxycycline Hyclate 100 mg/ (Sodium Chloride) 100 mls @ 100 mls/hr IV Q12H [facility] Last Admin: 04/05/21 06:21 Dose: 100 mls/hr Documented by: Methylprednisolone Sodium Succinate (Methylprednisolone Sodium Succinate 40 Mg/1 Ml Sdv) 40 mg IVPUSH Q12H [facility] Last Admin: 04/05/21 08:00 Dose: 40 mg Documented by: Miscellaneous Information (Remove And Replace Nicotine Patch) 1 ea TRDERM DAILY [facility] Last Admin: 04/05/21 08:02 Dose: 1 ea Documented by: Nicotine (Nicotine 21 Mg/24 Hr Patch) 21 mg TRDERM DAILY [facility] Last Admin: 04/05/21 08:01 Dose: 21 mg Documented by: Ondansetron HCl (Ondansetron 4 Mg/2 Ml Sdv) 4 mg IV Q6H PRN PRN Reason: Nausea/Vomiting Sodium Chloride (Sodium Chloride 0.9% 10 Ml Syringe) 10 ml FLUSH ASDIRECTED PRN PRN Reason: Keep Vein Open Last Admin: 03/31/21 10:28 Dose: 10 ml Documented by: Discontinued Medications Albuterol (Albuterol 0.083% 2.5 Mg/3 Ml Neb Soln) 2.5 mg NEB ONETIME ONE Stop: 03/31/21 09:51 Last Admin: 03/31/21 10:00 Dose: 2.5 mg Documented by: Aspirin (Aspirin 81 Mg Tab.Chew) 324 mg PO ONETIME ONE Stop: 03/31/21 10:20 Last Admin: 03/31/21 10:27 Dose: 324 mg Documented by: Furosemide (Furosemide 40 Mg/4 Ml Vial) 40 mg IVPUSH NOW ONE Stop: 03/31/21 11:02 Last Admin: 03/31/21 11:11 Dose: 40 mg Documented by: Furosemide (Furosemide 40 Mg/4 Ml Vial) 40 mg IVPUSH NOW ONE Stop: 03/31/21 12:41 Last Admin: 03/31/21 12:48 Dose: 40 mg Documented by: Furosemide (Furosemide 40 Mg/4 Ml Vial) 60 mg IVPUSH NOW ONE Stop: 04/01/21 10:18 Last Admin: 04/01/21 10:57 Dose: 60 mg Documented by: Furosemide (Furosemide 40 Mg/4 Ml Vial) 40 mg IVPUSH Q6H [facility] Stop: 04/02/21 00:01 Last Admin: 04/02/21 00:42 Dose: 40 mg Documented by: Furosemide (Furosemide 40 Mg/4 Ml Vial) 40 mg IVPUSH NOW ONE Stop: 04/02/21 10:42 Last Admin: 04/02/21 10:57 Dose: 40 mg Documented by: Furosemide (Furosemide 20 Mg/2 Ml Vial) 20 mg IVPUSH ONETIME ONE Stop: 04/03/21 10:43 Last Admin: 04/03/21 11:21 Dose: 20 mg Documented by: Furosemide (Furosemide 20 Mg Tab) 40 mg PO DAILY [facility] Sodium Chloride (Normal Saline) 100 mls @ 75 mls/hr IV ASDIRECTED [facility] Last Admin: 03/31/21 10:56 Dose: 75 mls/hr Documented by: Ceftriaxone Sodium 1 gm/ (Sodium Chloride) 100 mls @ 200 mls/hr IV ONETIME ONE Stop: 03/31/21 11:21 Last Admin: 03/31/21 11:14 Dose: 200 mls/hr Documented by: Sodium Chloride (Normal Saline) Confirm Administered Dose 1,000 mls @ as directed .ROUTE .STK-MED ONE Stop: 03/31/21 10:59 Last Admin: 03/31/21 11:12 Dose: Not Given Documented by: Ceftriaxone Sodium 1 gm/ (Sodium Chloride) 100 mls @ 200 mls/hr IV ONETIME ONE Stop: 03/31/21 14:59 Last Admin: 03/31/21 14:41 Dose: 200 mls/hr Documented by: Doxycycline Hyclate 100 mg/ (Sodium Chloride) 100 mls @ 100 mls/hr IV Q12H [facility] Last Admin: 04/04/21 13:12 Dose: Not Given Documented by: Furosemide 100 mg/ Sodium (Chloride) 100 mls @ 10 mls/hr IV TITRATE [facility]; Protocol Last Infusion: 04/01/21 03:30 Dose: 0 mls/hr Documented by: Iopamidol (Iopamidol 755 Mg/Ml 100 Ml Bottle) 100 ml IVPUSH ONETIME ONE Stop: 03/31/21 10:44 Last Admin: 03/31/21 10:56 Dose: 100 ml Documented by: Methylprednisolone Sodium Succinate (Methylprednisolone Sodium Succinate 125 Mg/2 Ml Sdv) 125 mg IVPUSH ONETIME ONE Stop: 03/31/21 14:31 Last Admin: 03/31/21 14:44 Dose: 125 mg Documented by: Methylprednisolone Sodium Succinate (Methylprednisolone Sodium Succinate 40 Mg/1 Ml Sdv) 60 mg IVPUSH Q6H [facility] Last Admin: 04/03/21 08:20 Dose: 60 mg Documented by: Methylprednisolone Sodium Succinate (Methylprednisolone Sodium Succinate 40 Mg/1 Ml Sdv) 40 mg IVPUSH Q8H [facility] Last Admin: 04/04/21 11:01 Dose: Not Given Documented by: Nicotine (Nicotine 21 Mg/24 Hr Patch) 21 mg TRDERM ONETIME ONE Stop: 03/31/21 16:16 Last Admin: 03/31/21 16:44 Dose: 21 mg Documented by: Sodium Chloride (Sodium Chloride 0.9% 10 Ml Syringe) 10 ml FLUSH ONETIME PRN PRN Reason: IV FLUSH Last Admin: 03/31/21 10:56 Dose: 10 ml Documented by:
[2021-04-05] MEDS ORDERED: Furosemide 20 MG Tab PO SCH (09:00)
== END 2021-04-05 11:47 | disposition home or self-care (01) | DRG 193 ==
LOC: JD.ED 09:23 → JD.ICU 13:48 → JD.MS 04-03 19:30
PROVIDERS: ADMIT Family Medicine; ATTEND Internal Medicine
PROC: 5A09457 Assistance with Respiratory Ventilation, 24-96 Consecutive Hours, Continuous Positive Airway Pressure (ICD-10-PCS; principal; 2021-03-31)
DX: J18.9 Pneumonia, unspecified organism (principal); J96.01 Acute respiratory failure with hypoxia; J96.02 Acute respiratory failure with hypercapnia; J44.1 Chronic obstructive pulmonary disease with (acute) exacerbation; E87.2 Acidosis; J44.0 Chronic obstructive pulmonary disease with (acute) lower respiratory infection; I50.9 Heart failure, unspecified; R74.8 Abnormal levels of other serum enzymes; R77.8 Other specified abnormalities of plasma proteins; I11.0 Hypertensive heart disease with heart failure; E11.9 Type 2 diabetes mellitus without complications; F17.210 Nicotine dependence, cigarettes, uncomplicated; F10.10 Alcohol abuse, uncomplicated; Z79.52 Long term (current) use of systemic steroids; Z79.899 Other long term (current) drug therapy; Z20.822 Contact with and (suspected) exposure to COVID-19
CPT/HCPCS: 0240U; 36415; 36600; 51702; 71045; 71045-26; 71275; 71275-26; 80048; 80053; 82728; 82803; 83605; 83615; 83735; 83880; 84100; 84145; 84484; 85025; 85048; 85379; 86140; 87040; 87486; 87581; 87633; 87634-QW; 87798; 93005; 93306; 94640; 94660; 94667; 94668; 94761; 94762; 96365; 96375; 99285-25; A9270-GY; J0696; J1650; J1940; J2920; J2930; J3490; J7620-GY; Q9967

== ENCOUNTER 2024-07-19 19:10 | Emergency (ER) | payer SELFPAY ==
[2024-07-19] MEDS ORDERED: Sodium Chloride 0.9% 10 ML Syringe FLUSH PRN (19:13)
[2024-07-19] MEDS: Iopamidol 755 Mg/ML 100 ML Bottle IVPUSH ONE (19:45)
[2024-07-19] MEDS: Sodium Chloride 0.9% 100 ML IV SCH (19:46)
[2024-07-19 20:14] LABS: BASOPHILS ABSOLUTE AUTO 0.1 K/mm3 (0.0-0.2); BASOPHILS PERCENT AUTO 0.6 % (0.0-1.0); EOSINOPHILS ABSOLUTE AUTO 0.3 K/mm3 (0.0-0.4); EOSINOPHILS PERCENT AUTO 2.4 % (0.0-6.0); HEMATOCRIT 48.6 % (37.0-47.0); IMMATURE GRAN ABSOLUTE AUTO 0.06 K/mm3 (0.00-0.05); IMMATURE GRAN PERCENT AUTO 0.5 % (0.0-0.4); LYMPHOCYTES ABSOLUTE AUTO 1.9 K/mm3 (1.0-4.8); LYMPHOCYTES PERCENT AUTO 15.5 % (24.0-44.0); MEAN CORPUSCULAR HEMOGLOBIN 30.2 pg (28.0-32.0); MEAN CORPUSCULAR HGB CONC 32.9 g/dl (32.0-36.0); MEAN CORPUSCULAR VOLUME 91.7 fl (83.0-99.0); MEAN PLATELET VOLUME 10.3 fl (9.4-12.3); MONOCYTES ABSOLUTE AUTO 0.7 K/mm3 (0.0-0.8); MONOCYTES PERCENT AUTO 5.7 % (0.0-8.0); NEUTROPHILS ABSOLUTE AUTO 9.2 K/mm3 (1.8-7.7); NEUTROPHILS PERCENT AUTO 75.3 % (41.0-71.0); PLATELET COUNT,PLT 251 K/mm3 (150-400)
[2024-07-19 20:28] LABS: APPEARANCE,URINE CLEAR (Clear); BILIRUBIN,URINE NEGATIVE (Negative); COLOR,URINE YELLOW (Yellow); GLUCOSE,URINE NEGATIVE (Negative); KETONES,URINE NEGATIVE (Negative); LEUKOCYTE ESTERASE,URINE NEGATIVE (Negative); NITRITE,URINE NEGATIVE (Negative); OCCULT BLOOD,URINE NEGATIVE (Negative); PROTEIN,URINE NEGATIVE (Negative); UROBILINOGEN,URINE 0.2 (0.2-1.0)
[2024-07-19 20:33] LABS: PROTHROMBIN TIME 10.6 SECONDS (9.7-12.0)
[2024-07-19 20:34] LABS: PTT,PARTIAL THROMBOPLSTIN TIME 29.5 SECONDS (21.7-31.4)
[2024-07-19 20:38] LABS: ALBUMIN 3.4 g/dl (3.4-5.0); BILIRUBIN TOTAL 0.4 mg/dL (0.2-1.0); BUN/CREATININE RATIO 11.3 (14-18); CALCIUM 9.2 mg/dL (8.5-10.1); CREATININE 0.8 mg/dL (0.55-1.02); EST CRCL DRUG DOSING (CG) 80.87 mL/min; MAGNESIUM 1.9 mg/dL (1.8-2.4); PROTEIN TOTAL,TP 6.7 g/dl (6.4-8.2)
[2024-07-19] MEDS: Sodium Chloride 0.9% 1,000 ML IV ONE (20:40)
== END 2024-07-20 11:15 ==
LOC: JD.ED 19:10
DX: R29.810 Facial weakness (principal); R47.81 Slurred speech; G93.9 Disorder of brain, unspecified; Z79.899 Other long term (current) drug therapy; Z79.51 Long term (current) use of inhaled steroids
CPT/HCPCS: 36415; 70450; 70496; 70498; 80053; 81003; 83735; 84484; 85025; 85610; 85730; 93005; 94762; 99285; Q9967; 93010

== ENCOUNTER 2024-12-04 18:44 | Inpatient (IN) | payer OTHER ==
[2024-12-04 19:22] LABS: BASOPHILS ABSOLUTE AUTO 0.1 K/mm3 (0.0-0.2); BASOPHILS PERCENT AUTO 0.5 % (0.0-1.0); EOSINOPHILS ABSOLUTE AUTO 0.3 K/mm3 (0.0-0.4); EOSINOPHILS PERCENT AUTO 3.2 % (0.0-6.0); IMMATURE GRAN ABSOLUTE AUTO 0.03 K/mm3 (0.00-0.05); IMMATURE GRAN PERCENT AUTO 0.3 % (0.0-0.4); LYMPHOCYTES ABSOLUTE AUTO 0.5 K/mm3 (1.0-4.8); LYMPHOCYTES PERCENT AUTO 5.5 % (24.0-44.0); MEAN PLATELET VOLUME 10.7 fl (9.4-12.3); MONOCYTES ABSOLUTE AUTO 0.6 K/mm3 (0.0-0.8); MONOCYTES PERCENT AUTO 5.8 % (0.0-8.0); NEUTROPHILS ABSOLUTE AUTO 8.1 K/mm3 (1.8-7.7); NEUTROPHILS PERCENT AUTO 84.7 % (41.0-71.0); NRBC ABSOLUTE 0.00 (0.00-0.02); NRBC PERCENT 0.0 % (0.0-0.2); PLATELET COUNT,PLT 219 K/mm3 (150-400); RED BLOOD CELL COUNT 4.39 M/mm3 (4.10-5.30); WHITE BLOOD CELL COUNT,WBC 9.54 K/mm3 (3.9-11.3)
[2024-12-04 19:55] LABS: A/G RATIO 1.4 (1-2); ALANINE AMINOTRANSFERASE,ALT 21.0 U/L (14-59); ASPARTATE AMNIOTRANSFERASE,AST 15.0 U/L (15-37); BILIRUBIN TOTAL 0.9 mg/dL (0.2-1.0); BLOOD UREA NITROGEN,BUN 15.0 mg/dL (7-18); CARBON DIOXIDE,CO2 30.0 mEq/L (21-32); CHLORIDE,CL 101.0 mEq/L (98-107); CREATININE 0.9 mg/dL (0.55-1.02); EST CRCL DRUG DOSING (CG) 71.88 mL/min; ESTIMATED GFR 73.0 mL/min (>60); GLUCOSE RANDOM 116.0 mg/dL (70-99); POTASSIUM,K 3.5 mEq/L (3.5-5.1); PROTEIN TOTAL,TP 7.1 g/dl (6.4-8.2); SODIUM,NA 138.0 mEq/L (136-145)
[2024-12-04 20:07] LABS: APPEARANCE,URINE CLEAR (Clear); GLUCOSE,URINE NEGATIVE (Negative); OCCULT BLOOD,URINE NEGATIVE (Negative)
[2024-12-04 20:16] LABS: BUPRENORPHINE SCREEN,URINE NEGATIVE (CUTOFF=10); METHADONE SCREEN, URINE NEGATIVE (CUTOFF=200); METHAMPHETAMINES SCREEN, URINE NEGATIVE (CUTOFF=500); OXYCODONE SCREEN,URINE NEGATIVE (CUT0FF=100); THC SCREEN,URINE 20 NG/ML NEGATIVE (CUTOFF=50)
[2024-12-04 20:29] LABS: AMPHETAMINES SCREEN, URINE NEGATIVE (CUTOFF=500)
[2024-12-04] MEDS: Iopamidol 755 Mg/ML 100 ML Bottle IVPUSH ONE (22:06)
[2024-12-04] MEDS: levETIRAcetam 500 MG/5 ML SDV IVPUSH ONE (23:50)
[2024-12-05 06:12] LABS: BASOPHILS ABSOLUTE AUTO 0.0 K/mm3 (0.0-0.2); BASOPHILS PERCENT AUTO 0.8 % (0.0-1.0); EOSINOPHILS ABSOLUTE AUTO 0.4 K/mm3 (0.0-0.4); EOSINOPHILS PERCENT AUTO 7.7 % (0.0-6.0); IMMATURE GRAN ABSOLUTE AUTO 0.02 K/mm3 (0.00-0.05); IMMATURE GRAN PERCENT AUTO 0.4 % (0.0-0.4); LYMPHOCYTES ABSOLUTE AUTO 0.7 K/mm3 (1.0-4.8); LYMPHOCYTES PERCENT AUTO 13.4 % (24.0-44.0); MEAN PLATELET VOLUME 11.6 fl (9.4-12.3); MONOCYTES ABSOLUTE AUTO 0.5 K/mm3 (0.0-0.8); MONOCYTES PERCENT AUTO 9.4 % (0.0-8.0); NEUTROPHILS ABSOLUTE AUTO 3.6 K/mm3 (1.8-7.7); NEUTROPHILS PERCENT AUTO 68.3 % (41.0-71.0); NRBC ABSOLUTE 0.00 (0.00-0.02); NRBC PERCENT 0.0 % (0.0-0.2); PLATELET COUNT,PLT 189 K/mm3 (150-400); RED BLOOD CELL COUNT 3.93 M/mm3 (4.10-5.30); WHITE BLOOD CELL COUNT,WBC 5.21 K/mm3 (3.9-11.3)
[2024-12-05 06:20] LABS: A/G RATIO 1.3 (1-2); ALANINE AMINOTRANSFERASE,ALT 18.0 U/L (14-59); ASPARTATE AMNIOTRANSFERASE,AST 13.0 U/L (15-37); BILIRUBIN TOTAL 0.8 mg/dL (0.2-1.0); BLOOD UREA NITROGEN,BUN 10.0 mg/dL (7-18); CARBON DIOXIDE,CO2 31.0 mEq/L (21-32); CHLORIDE,CL 105.0 mEq/L (98-107); CREATININE 0.6 mg/dL (0.55-1.02); EST CRCL DRUG DOSING (CG) 107.82 mL/min; ESTIMATED GFR 103.0 mL/min (>60); GLUCOSE RANDOM 89.0 mg/dL (70-99); POTASSIUM,K 3.7 mEq/L (3.5-5.1); PROTEIN TOTAL,TP 6.0 g/dl (6.4-8.2); SODIUM,NA 144.0 mEq/L (136-145)
[2024-12-05] MEDS ORDERED: Ondansetron 4 MG/2 ML SDV IV PRN (08:24)
[2024-12-05] MEDS: Gadobenate Dimeglumine 529 MG/ML 20 ML SDV IVPUSH ONE (09:08)
[2024-12-05] MEDS: Sodium Chloride 0.9% 10 ML Syringe FLUSH SCH (09:08)
[2024-12-05] MEDS: levETIRAcetam 500 MG/5 ML SDV IVPUSH ONE (16:02)
== END 2024-12-05 16:18 | disposition home or self-care (01) | DRG 101 ==
LOC: JD.ED 18:44 → JD.MS 22:45
PROVIDERS: ADMIT Family Medicine; ATTEND Family Medicine
DX: R56.9 Unspecified convulsions (principal); C71.9 Malignant neoplasm of brain, unspecified; R09.02 Hypoxemia; F17.200 Nicotine dependence, unspecified, uncomplicated; Z79.899 Other long term (current) drug therapy; Z98.890 Other specified postprocedural states; Z79.52 Long term (current) use of systemic steroids
CPT/HCPCS: 36415; 70450; 70450-26; 70460; 70460-26; 70470; 70470-26; 70553; 70553-26; 71045; 71045-26; 80053; 80306; 81003; 83605; 83735; 85025; 94640; 94760; 97116-GP; 97161-GP; 99285; A9270-GY; A9577; J1650; J1953; Q9967